=== PATIENT | female | born 1930 | race African-American/Black ===

== ENCOUNTER 2016-06-09 10:51 | Inpatient (IN) | payer MEDICARE, OTHER ==
[2016-06-09] MEDS ORDERED: IPRATROPIUM/ALBUTEROL 0.5-2.5 MG/3 ML AMPUL NEB ONE ×2 (11:36→13:24)
--- NOTE | 2016-06-09 11:36 | ER Document Report ---
ED Respiratory Problem - General Chief Complaint: Shortness Of Breath Stated Complaint: DIFFICULTY BREATHING Notes: The patient is an 86-year-old female, past medical history chronic anemia, COPD (on 2.5-3L O2), breast cancer, presents from the oncology clinic after her oxygen was in the 70s while ambulating using her usual 3 L nasal cannula.. She was being discharged after an iron infusion when she felt increasing shortness of breath. When EMS arrived, she was placed on her oxygen and her saturation increased to 100%. She is not feeling short of breath anymore when she is at rest. She denies rhinorrhea, chest pain, fevers, leg swelling, nausea, vomiting , back pain, rash or abdominal pain. TRAVEL OUTSIDE OF THE [place] IN LAST 30 DAYS: No - Related Data Allergies/Adverse Reactions: Penicillins Allergy (Verified 06/09/16 11:17) SWELLING, ITCHING Sulfa (Sulfonamide Antibiotics) Allergy (Verified 06/09/16 11:17) SWELLING, ITCHING, RASH Tetanus Vaccines and Toxoid [Tetanus] Allergy (Verified 06/09/16 11:17) SWELLING AT SITE Past Medical History - General Information source: Patient - Social History Smoking Status: Former Smoker Chew tobacco use (# tins/day): No Frequency of alcohol use: None Drug Abuse: None Family History: Reviewed & Not Pertinent Patient has suicidal ideation: No Patient has homicidal ideation: No - Past Medical History Cardiac Medical History: Reports: Hx Hypertension Denies: Hx Coronary Artery Disease, Hx Heart Attack Pulmonary Medical History: Reports: Hx Bronchitis, Hx COPD, Hx Pneumonia Denies: Hx Asthma Neurological Medical History: Denies: Hx Cerebrovascular Accident, Hx Seizures Renal/ Medical History: Denies: Hx Peritoneal Dialysis GI Medical History: Denies: Hx Hepatitis, Hx Hiatal Hernia, Hx Ulcer Musculoskeltal Medical History: Reports Hx Arthritis - OSTEOARTHRITIS, OSTEOPOROSIS Infectious Medical History: Denies: Hx Hepatitis Past Surgical History: Reports: Hx Mastectomy - LUMPECTOMY AVOID LEFT ARM. Denies: Hx Open Heart Surgery, Hx Pacemaker - Immunizations Hx Diphtheria, Pertussis, Tetanus Vaccination: No - ALLERGIC TO TETANUS VACCINE Hx Pneumococcal Vaccination: 12/26/14 Review of Systems - Review of Systems Notes: REVIEW OF SYSTEMS: CONSTITUTIONAL: -fevers, -chills EENT: -eye pain, -difficulty swallowing, -nasal congestion CARDIOVASCULAR:-chest pain, -syncope. RESPIRATORY: -cough, +SOB GASTROINTESTINAL: -abdominal pain, - nausea, -vomiting, -diarrhea GENITOURINARY: -dysuria, -hematuria MUSCULOSKELETAL: -back pain, -neck pain SKIN: -rash or skin lesions. HEMATOLOGIC: -easy bruising or bleeding. LYMPHATIC: -swollen, enlarged glands. NEUROLOGICAL: -altered mental status or loss of consciousness, -headache, - neurologic symptoms PSYCHIATRIC: -anxiety, -depression. ALL OTHER SYSTEMS REVIEWED AND NEGATIVE. Physical Exam - Vital signs Vitals: Temp Pulse Resp BP Pulse Ox 98.2 F 79 13 140/59 H 100 06/09/16 11:05 06/09/16 11:05 06/09/16 11:05 06/09/16 11:05 06/09/16 11:05 - Notes Notes: PHYSICAL EXAMINATION: GENERAL: Well-appearing, well-nourished and in no acute distress. HEAD: Atraumatic, normocephalic. EYES: Pupils equal round and reactive to light, extraocular movements intact, sclera anicteric, conjunctiva are normal. ENT: nares patent, oropharynx clear without exudates. Moist mucous membranes. NECK: Normal range of motion, supple without lymphadenopathy LUNGS: Breath sounds clear to auscultation bilaterally and equal. No wheezes rales or rhonchi. HEART: Regular rate and rhythm without murmurs ABDOMEN: Soft, nontender, normoactive bowel sounds. No guarding, no rebound. No masses appreciated. EXTREMITIES: Normal range of motion, no pitting or edema. No cyanosis. NEUROLOGICAL: Cranial nerves grossly intact. Normal speech, normal gait. Normal sensory, motor, and reflex exams. PSYCH: Normal mood, normal affect. SKIN: Warm, Dry, normal turgor, no rashes or lesions noted. Course - Re-evaluation Re-evalutation: 06/09/16 12:39 Once patient is placed on her home oxygen, she does not feel short of breath and her oxygenation is 95% while at rest. When she is ambulating with her home oxygen, she drops down to 70% and has increasing shortness of breath. Labs are unremarkable and chest x-ray does not show any infiltrate. EKG and troponin does not show any evidence of ACS. Considered PE , but unlikely at this time because patient is asymptomatic when she is at rest. Patient requires admission for further evaluation and treatment of this hypoxia while ambulating. Her primary care physician is Dr. Montoya. 06/09/16 13:[address] Montoya and he will be down to see and admit patient. - Vital Signs Vital signs: Temp Pulse Resp BP Pulse Ox 98.2 F 79 18 138/69 H 100 06/09/16 11:05 06/09/16 11:05 06/09/16 14:01 06/09/16 14:01 06/09/16 14:01 - Laboratory Result Diagrams: 06/09/16 11:45 06/09/16 11:45 Laboratory results interpreted by me: 06/09/16 06/09/16 11:45 11:45 RBC 3.65 L Hgb 8.9 L Hct 27.6 L MCV 76 L MCH 24.3 L RDW 17.9 H Lymphocytes % 12.8 L Carbon Dioxide 31 H - Diagnostic Test Radiology reviewed: Image reviewed, Reports reviewed Radiology results interpreted by me: CXR: NAD - EKG Interpretation by Me EKG shows normal: Sinus rhythm, [place], Intervals, QRS Complexes, ST-T Waves Rate: Normal Discharge - Discharge Clinical Impression: Hypoxia Dyspnea Qualifiers: Dyspnea type: dyspnea on exertion Qualified Code(s): R06.09 - Other forms of dyspnea Condition: Stable Disposition: ADMITTED INPATIENT Admitting Provider: Lindsay Unit Admitted: Telemetry
[2016-06-09 12:11] LABS: ABSOLUTE LYMPHOCYTES (AUTO) 0.6 10^3/uL (0.5-4.7); ABSOLUTE MONOCYTES (AUTO) 0.5 10^3/uL (0.1-1.4); ABSOLUTE NEUT (AUTO) 3.6 10^3/uL (1.7-8.2); BASOPHILS % (AUTO) 0.8 % (0-2); HEMATOCRIT 27.6 % (36.0-47.0); HEMOGLOBIN 8.9 g/dL (12.0-15.5); HGB HCT DIFFERENCE -0.9; LYMPHOCYTES % (AUTO) 12.8 % (13-45); MEAN CORPUSCULAR HEMOGLOBIN 24.3 pg (27.0-33.4); MEAN CORPUSCULAR HGB CONC 32.1 g/dL (32.0-36.0); MEAN CORPUSCULAR VOLUME 76 fl (80-97); MONOCYTES % (AUTO) 10.3 % (3-13); RED BLOOD COUNT 3.65 10^6/uL (3.72-5.28); RED CELL DISTRIBUTION WIDTH 17.9 % (11.5-14.0); SEGMENTED NEUTROPHILS % (AUTO) 76.1 % (42-78); WHITE BLOOD COUNT 4.7 10^3/uL (4.0-10.5)
[2016-06-09 12:23] LABS: ALANINE AMINOTRANSFERASE 25 U/L (9-52); ALBUMIN 4.3 g/dL (3.5-5.0); ALKALINE PHOSPHATASE 66 U/L (38-126); ANION GAP 6 (5-19); ASPARTATE AMINO TRANSFERASE 20 U/L (14-36); BILIRUBIN,TOTAL 0.7 mg/dL (0.2-1.3); BLOOD UREA NITROGEN 14 mg/dL (7-20); CALCIUM 9.7 mg/dL (8.4-10.2); CARBON DIOXIDE 31 mmol/L (22-30); CHLORIDE 103 mmol/L (98-107); CREATINE KINASE 67 U/L (30-135); CREATININE RESULT 0.54 mg/dL (0.52-1.25); GLUCOSE 101 mg/dL (75-110); LIPASE 24.5 U/L (23-300); POTASSIUM 3.9 mmol/L (3.6-5.0); SODIUM 140.3 mmol/L (137-145); TOTAL PROTEIN 7.1 g/dL (6.3-8.2)
[2016-06-09 12:36] LABS: TROPONIN I < 0.012 ng/mL
[2016-06-09] MEDS ORDERED: METHYLPREDNISOLONE INJ 125 MG/2 ML SDV IV ONE (13:31)
--- NOTE | 2016-06-09 18:44 | PDOC H&P ---
History of Present Illness Admission Date/PCP: 06/09/16 13:53 KEITH LIATADAMARISLow Patient complains of: Shortness of breath with hypoxemia History of Present Illness: ZANA ARREDONDO is a 86 year old female brought by medic personnel ed the ED from [facility] following development of worsening shortness of breath with persistent hypoxemia. Patient do have history of end stage COPD on supplemental oxygen and lung cancer. There is history of anemia with need for iron infusion and upon administration of iron infusion today patient developed increase shortness of breath necessitating transfer to ED for further evaluation and management. Despite 3 rounds of bronchodilator administration she continue to experience significant wheezing and hypoxemia with reported oxgen saturation in the 70's percent with ambulation while on her usual 3L/min supplemental oxygen. She demonstrated improvement with increase in supplemental oxygen. She denied any chest pain, fever or chills. She denied any associated dizziness, vertigo, nausea, vomiting, abdominal pain, or leg swelling. Past Medical History Cardiac Medical History: Reports: Hypertension Denies: Coronary Artery Disease, Myocardial Infarction Pulmonary Medical History: Reports: Bronchitis, Chronic Obstructive Pulmonary Disease (COPD), Pneumonia Denies: Asthma Neurological Medical History: Denies: Seizures GI Medical History: Denies: Hepatitis, Hiatal Hernia Musculoskeltal Medical History: Reports: Arthritis - OSTEOARTHRITIS, OSTEOPOROSIS Hematology: Reports: Anemia - hx of Denies: Sickle Cell Disease Past Surgical History Past Surgical History: Reports: Mastectomy - LUMPECTOMY AVOID LEFT ARM Denies: Amputation, Pacemaker Social History Smoking Status: Former Smoker Family History Family History: Reviewed & Not Pertinent Parental Family History Reviewed: Yes Children Family History Reviewed: Yes Sibling(s) Family History Reviewed.: Yes Medication/Allergy Home Medications: Alendronate Sodium [Fosamax 70 mg Tablet] 70 mg PO HODGSON 06/09/16 Alprazolam [Xanax 0.25 mg Tablet] 0.25 mg PO Q12HP PRN 06/09/16 Aspirin [Aspirin EC] 81 mg PO DAILY 06/09/16 Calcium Carbonate [Calcium] 500 mg PO Q12 06/09/16 Cyclosporine [Restasis Droperette] 1 drop OP Q12 06/09/16 Diltiazem HCl [Dilt-Xr] 240 mg PO DAILY 06/09/16 Epoetin Alexander [Procrit] 40,000 unit IJ ASDIR PRN 06/09/16 Ergocalciferol (Vitamin D2) [Vitamin D2] 50,000 unit PO Q30D 06/09/16 Fluticasone/Salmeterol [Advair 500-50 Diskus 28 Dose] 1 puff IH Q12 06/09/16 Ipratropium/Albuterol Sulfate [Combivent Respimat 4 gm Mdi] 1 puff IH Q6 Melatonin/Pyridoxine HCl (B6) [Melatonin 5 mg Tablet] 1 tab PO QHS 06/09/16 Mometasone Furoate [Nasonex] 2 sprays NASL DAILY 06/09/16 Montelukast Sodium [Singulair 10 mg Tablet] 10 mg PO DAILY 06/09/16 Multivit-Min/FA/Lycopen/Lutein [Adults 50+ Multivitamin Tablet] 1 tab PO DAILY 06/09/16 Tiotropium Climax [Spiriva Handihaler 18 mcg/dose (30 Dose)] 1 cap IH DAILY Allergies/Adverse Reactions: Penicillins Allergy (Verified 06/09/16 11:17) SWELLING, ITCHING Sulfa (Sulfonamide Antibiotics) Allergy (Verified 06/09/16 11:17) SWELLING, ITCHING, RASH Tetanus Vaccines and Toxoid [Tetanus] Allergy (Verified 06/09/16 11:17) SWELLING AT SITE Review of Systems Constitutional: ABSENT: chills, fever(s), headache(s), weight gain, weight loss Eyes: ABSENT: visual disturbances Ears: ABSENT: hearing changes Nose, Mouth, and Throat: ABSENT: as per HPI, headache(s), mouth pain, sore throat, vertigo, other Cardiovascular: PRESENT: dyspnea on exertion. ABSENT: as per HPI, chest pain, edema, orthropnea, palpitations, other Respiratory: PRESENT: dyspnea. ABSENT: as per HPI, cough, hemoptysis, sputum, other Gastrointestinal: ABSENT: abdominal pain, constipation, diarrhea, hematemesis, hematochezia, nausea, vomiting Genitourinary: ABSENT: dysuria, hematuria Musculoskeletal: PRESENT: deformity - related to joint involvement with arthritis Integumentary: ABSENT: rash, wounds Neurological: ABSENT: abnormal gait, abnormal speech, confusion, dizziness, focal weakness, syncope Psychiatric: ABSENT: anxiety, depression, homidical ideation, suicidal ideation Endocrine: ABSENT: cold intolerance, heat intolerance, menstrual abnormalities, polydipsia, polyuria Hematologic/Lymphatic: ABSENT: easy bleeding, easy bruising, lymphadenopathy Physical Exam Vital Signs: Temp Pulse Resp BP Pulse Ox 98.2 F 79 16 130/55 H 93 06/09/16 11:05 06/09/16 11:05 06/09/16 18:01 06/09/16 18:01 06/09/16 18:01 Intake & Output 06/08/16 06/09/16 06/10/16 06:59 06:59 06:59 Weight 48.988 kg General appearance: PRESENT: mild distress, thin Head exam: PRESENT: atraumatic, normocephalic Eye exam: PRESENT: conjunctiva pink, EOMI, PERRLA. ABSENT: scleral icterus Ear exam: PRESENT: normal external ear exam Mouth exam: PRESENT: moist, tongue midline Throat exam: ABSENT: post pharyngeal erythema, tonsillar erythema, tonsillar exudate, tonsillogmegaly, other Neck exam: PRESENT: full ROM. ABSENT: carotid bruit, JVD, lymphadenopathy, thyromegaly Respiratory exam: PRESENT: decreased breath sounds, prolonged expiratory phas, rhonchi, wheezes. ABSENT: accessory muscle use, chest wall tenderness, clear to auscultation emerita, crackles, rales, retraction, stridor, symmetrical, tachypnea, unlabored, other Cardiovascular exam: PRESENT: RRR. ABSENT: diastolic murmur, rubs, systolic murmur Vascular exam: PRESENT: normal capillary refill GI/Abdominal exam: PRESENT: normal bowel sounds, soft. ABSENT: distended, guarding, mass, organolmegaly, rebound, tenderness Rectal exam: PRESENT: deferred Extremities exam: PRESENT: full ROM Musculoskeletal exam: PRESENT: ambulatory, deformity - due to joint involvement with arthritis Neurological exam: PRESENT: alert, awake, oriented to person, oriented to place , oriented to time, oriented to situation, CN II-XII grossly intact. ABSENT: motor sensory deficit Psychiatric exam: PRESENT: appropriate affect, normal mood. ABSENT: homicidal ideation, suicidal ideation Skin exam: PRESENT: dry, warm Results Laboratory Results: See [employer] for details. These lab results form part f my decision making efforts. Impressions: Chest X-Ray 06/09/16 10:59 IMPRESSION: Obstructive lung disease. No acute findings Assessment & Plan - Diagnosis (1) Chronic obstructive pulmonary disease with acute exacerbation Is this a current diagnosis for this admission?: YesPlan: See admitting physician orders. (2) Hypoxemia requiring supplemental oxygen Is this a current diagnosis for this admission?: YesPlan: See admitting physician orders. (3) Chronic disease anemia Is this a current diagnosis for this admission?: YesPlan: See admitting physician orders. (4) HTN (hypertension) Qualifiers: Hypertension type: essential hypertension Qualified Code(s): I10 - Essential (primary) hypertension Is this a current diagnosis for this admission?: YesPlan: See admitting physician orders. (5) Anxiety, generalized Is this a current diagnosis for this admission?: YesPlan: See admitting physician orders. (6) History of malignant neoplasm of left breast Is this a current diagnosis for this admission?: YesPlan: See admitting physician orders. - Time Time Spent: 50 to 70 Minutes Medications reviewed and adjusted accordingly: Yes Anticipated discharge: Home with Homehealth Within: Other - Inpatient Certification Based on my medical assessment, after consideration of the patient's comorbidities, presenting symptoms, or acuity I expect that the services needed warrant INPATIENT care.: Yes I certify that my determination is in accordance with my understanding of Medicare's requirements for reasonable and necessary INPATIENT services [42 CFR 412.3e].: Yes Medical Necessity: Need Close Monitoring Due to Risk of Patient Decompensation, Need For Continuous Telemetry Monitoring, Need for Nebulizer Therapy and Monitoring of Response, Risk of Complication if Not Cared For in Hospital Post Hospital Care: D/C Getterer Documentation - Plan Summary Plan Summary: See admitting physician orders.
[2016-06-09] MEDS ORDERED: GUAIFENESIN SYRP 200 MG/10 ML UDC PO PRN (18:56)
[2016-06-09 19:58] LABS: PROTHROMBIN TIME 13.3 SEC (11.4-15.4)
[2016-06-09 19:59] LABS: PARTIAL THROMBOPLASTIN TIME 36.7 SEC (23.5-35.8)
[2016-06-09] MEDS ORDERED: ENOXAPARIN SODIUM INJ 30 MG/0.3 ML DISP.SYRIN SUBCUT ONE ×2 (20:00)
[2016-06-09] MEDS: NORMAL SALINE 1000 ML 1,000 ML IV PRN ×2 (20:17→23:08)
[2016-06-09] MEDS ORDERED: PYRIDOXINE HCL PO SCH (22:00)
[2016-06-09] MEDS ORDERED: MELATONIN PO SCH (22:00)
[2016-06-09] MEDS: CALCIUM CARBONATE 500 MG TABLET PO SCH (23:08)
[2016-06-09] MEDS: METHYLPREDNISOLONE INJ 125 MG/2 ML SDV IV SCH (23:09)
[2016-06-09] MEDS: CYCLOSPORINE 0.05% OPH EMULSIO 0.4 ML DROPERETTE OU SCH (23:09)
[2016-06-09] MEDS: ALPRAZOLAM 0.25 MG TABLET PO PRN (23:09)
[2016-06-10] MEDS: ACETAMINOPHEN 325 MG TABLET PO PRN ×3 (03:45→21:11)
[2016-06-10] MEDS: METHYLPREDNISOLONE INJ 125 MG/2 ML SDV IV SCH ×3 (05:34→21:13)
[2016-06-10] MEDS: LANSOPRAZOLE 30 MG TAB.RAP.DR PO SCH (05:34)
[2016-06-10 06:07] LABS: ABSOLUTE LYMPHOCYTES (AUTO) 0.3 10^3/uL (0.5-4.7); ABSOLUTE MONOCYTES (AUTO) 0.1 10^3/uL (0.1-1.4); ABSOLUTE NEUT (AUTO) 3.1 10^3/uL (1.7-8.2); BASOPHILS % (AUTO) 0.2 % (0-2); EOSINOPHILS % (AUTO) 0.1 % (0-6); HEMATOCRIT 25.7 % (36.0-47.0); HEMOGLOBIN 8.4 g/dL (12.0-15.5); HGB HCT DIFFERENCE -0.5; LYMPHOCYTES % (AUTO) 8.1 % (13-45); MEAN CORPUSCULAR HEMOGLOBIN 24.4 pg (27.0-33.4); MEAN CORPUSCULAR HGB CONC 32.7 g/dL (32.0-36.0); MEAN CORPUSCULAR VOLUME 75 fl (80-97); MONOCYTES % (AUTO) 1.7 % (3-13); RED BLOOD COUNT 3.44 10^6/uL (3.72-5.28); RED CELL DISTRIBUTION WIDTH 18.5 % (11.5-14.0); SEGMENTED NEUTROPHILS % (AUTO) 89.9 % (42-78); WHITE BLOOD COUNT 3.4 10^3/uL (4.0-10.5)
[2016-06-10 06:10] LABS: ALANINE AMINOTRANSFERASE 27 U/L (9-52); ALKALINE PHOSPHATASE 57 U/L (38-126); ANION GAP 7 (5-19); ASPARTATE AMINO TRANSFERASE 20 U/L (14-36); BILIRUBIN,TOTAL 0.4 mg/dL (0.2-1.3); BLOOD UREA NITROGEN 8 mg/dL (7-20); CARBON DIOXIDE 29 mmol/L (22-30); CHLORIDE 105 mmol/L (98-107); GLUCOSE 133 mg/dL (75-110); MAGNESIUM 1.9 mg/dL (1.6-2.3); PHOSPHORUS 3.5 mg/dL (2.5-4.5); POTASSIUM 3.8 mmol/L (3.6-5.0); SODIUM 141.1 mmol/L (137-145); TOTAL PROTEIN 6.6 g/dL (6.3-8.2)
--- NOTE | 2016-06-10 08:09 | PDOC PROGRESS REPORT ---
Subjective Progress Note for:: 06/10/16 Subjective:: Patient reported some improvement in her breathing with need for decrease supplemental oxygen due to associated headache with rate at 4L/min. No chest pain. There is still exertional oxygen desaturation. Patient reported frequent urination with feeling of incomplete bladder emptying. No chest pain. No fever or chills. No nausea or vomiting. No abdominal pain. Physical Exam Vital Signs: Temp Pulse Resp BP Pulse Ox 98.0 F 103 H 19 124/62 98 06/10/16 04:00 06/10/16 07:00 06/10/16 04:00 06/10/16 04:00 06/10/16 04:00 Intake & Output 06/09/16 06/10/16 06/11/16 06:59 06:59 06:59 Intake Total 1197 Balance 1197 Weight 45.7 kg General appearance: PRESENT: cooperative, mild distress - with supplemental oxygen at 3L/min Head exam: PRESENT: atraumatic, normocephalic Eye exam: PRESENT: conjunctiva pink, EOMI, PERRLA. ABSENT: scleral icterus Mouth exam: PRESENT: moist Respiratory exam: PRESENT: clear to auscultation emerita, decreased breath sounds Cardiovascular exam: PRESENT: RRR. ABSENT: diastolic murmur, rubs, systolic murmur GI/Abdominal exam: PRESENT: normal bowel sounds, soft. ABSENT: distended, guarding, mass, organolmegaly, rebound, tenderness Extremities exam: PRESENT: full ROM Musculoskeletal exam: PRESENT: deformity - related to joint involvement with arthritis Neurological exam: PRESENT: alert, awake, oriented to person, oriented to place , oriented to time, oriented to situation, CN II-XII grossly intact. ABSENT: motor sensory deficit Psychiatric exam: PRESENT: anxious - about sale of her home and furniture content Skin exam: PRESENT: dry, warm Results Laboratory Results: 06/10/16 05:30 06/10/16 05:30 06/10/16 06/10/16 05:30 05:30 WBC 3.4 L RBC 3.44 L Hgb 8.4 L Hct 25.7 L MCV 75 L MCH 24.4 L MCHC 32.7 RDW 18.5 H Plt Count 388 Seg Neutrophils % 89.9 H Lymphocytes % 8.1 L Monocytes % 1.7 L Eosinophils % 0.1 Basophils % 0.2 Absolute Neutrophils 3.1 Absolute Lymphocytes 0.3 L Absolute Monocytes 0.1 Absolute Eosinophils 0.0 Absolute Basophils 0.0 Sodium 141.1 Potassium 3.8 Chloride 105 Carbon Dioxide 29 Anion Gap 7 BUN 8 Creatinine 0.50 L Est GFR ( Amer) > 60 Est GFR (Non-Af Amer) > 60 Glucose 133 H Calcium 10.0 Phosphorus 3.5 Magnesium 1.9 Total Bilirubin 0.4 AST 20 ALT 27 Alkaline Phosphatase 57 Total Protein 6.6 Albumin 4.0 Impressions: Chest X-Ray 06/09/16 10:59 IMPRESSION: Obstructive lung disease. No acute findings Assessment & Plan - Diagnosis (1) Chronic obstructive pulmonary disease with acute exacerbation Is this a current diagnosis for this admission?: YesPlan: See attending physician orders. (2) Hypoxemia requiring supplemental oxygen Is this a current diagnosis for this admission?: YesPlan: See attending physician orders. (3) Chronic disease anemia Is this a current diagnosis for this admission?: YesPlan: See attending physician orders. (4) HTN (hypertension) Qualifiers: Hypertension type: essential hypertension Qualified Code(s): I10 - Essential (primary) hypertension Is this a current diagnosis for this admission?: YesPlan: See attending physician orders. (5) Anxiety, generalized Is this a current diagnosis for this admission?: YesPlan: See attending physician orders. (6) History of malignant neoplasm of left breast Is this a current diagnosis for this admission?: YesPlan: See attending physician orders. (7) Feeling of incomplete bladder emptying Is this a current diagnosis for this admission?: YesPlan: Obtain u/a and bladder scan for further evaluation. 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
[2016-06-10] MEDS ORDERED: [UNRECOGNIZED DRUG - OTHER] PO SCH (10:00)
[2016-06-10] MEDS ORDERED: (PENDING PHARMACY ID) (Mometasone Furoate [Nasonex] 2 SPRAYS) NASL SCH (10:00)
[2016-06-10] MEDS: MULTIVITAMIN TABLET PO SCH (10:09)
[2016-06-10] MEDS: DILTIAZEM HCL 240 MG CAPSULE.CR PO SCH (10:09)
[2016-06-10] MEDS: CALCIUM CARBONATE 500 MG TABLET PO SCH ×2 (10:10→21:11)
[2016-06-10] MEDS: ASPIRIN 81 MG TABLET, ENT COATED PO SCH (10:10)
[2016-06-10] MEDS: MONTELUKAST SODIUM 10 MG TABLET PO SCH (10:10)
[2016-06-10] MEDS: ENOXAPARIN SODIUM INJ 30 MG/0.3 ML DISP.SYRIN SUBCUT SCH (10:11)
[2016-06-10] MEDS: FLUTICASONE NASAL SPRAY 50 MCG/SPRY 120 SPRAY/16 GM NASL SCH (10:17)
[2016-06-10] MEDS: CYCLOSPORINE 0.05% OPH EMULSIO 0.4 ML DROPERETTE OU SCH ×2 (10:17→21:12)
[2016-06-10] MEDS: TIOTROPIUM BROMIDE DPI 5 CAP/KIT (18 MCG/CAP) IH SCH (10:40)
--- NOTE | 2016-06-10 11:15 | EKG REPORT ---
SEVERITY:- NORMAL ECG - SINUS RHYTHM : Confirmed by: Heidi Mir 10-Jun-2016 11:14:20
[2016-06-10 13:53] LABS: APPEARANCE,URINE CLEAR; BILIRUBIN,URINE NEGATIVE (NEGATIVE); GLUCOSE, URINE NEGATIVE (NEGATIVE); KETONES,URINE NEGATIVE (NEGATIVE); LEUKOCYTE ESTERASE,URINE NEGATIVE (NEGATIVE); NITRITE,URINE NEGATIVE (NEGATIVE); PROTEIN,URINE NEGATIVE (NEGATIVE); URINE SPECIFIC GRAVITY 1.004; UROBILINOGEN,URINE NEGATIVE mg/dL (<2.0)
[2016-06-10] MEDS: ALPRAZOLAM 0.25 MG TABLET PO PRN (21:12)
[2016-06-10] MEDS: NORMAL SALINE 1000 ML 1,000 ML IV PRN (21:13)
[2016-06-11] MEDS: ACETAMINOPHEN 325 MG TABLET PO PRN ×3 (04:14→21:01)
[2016-06-11] MEDS: METHYLPREDNISOLONE INJ 125 MG/2 ML SDV IV SCH ×3 (06:00→21:01)
[2016-06-11] MEDS: LANSOPRAZOLE 30 MG TAB.RAP.DR PO SCH (06:00)
[2016-06-11] MEDS: DILTIAZEM HCL 240 MG CAPSULE.CR PO SCH (10:56)
[2016-06-11] MEDS: MULTIVITAMIN TABLET PO SCH (10:57)
[2016-06-11] MEDS: CYCLOSPORINE 0.05% OPH EMULSIO 0.4 ML DROPERETTE OU SCH ×2 (10:57→21:01)
[2016-06-11] MEDS: ASPIRIN 81 MG TABLET, ENT COATED PO SCH (10:57)
[2016-06-11] MEDS: MONTELUKAST SODIUM 10 MG TABLET PO SCH (10:57)
[2016-06-11] MEDS: FLUTICASONE NASAL SPRAY 50 MCG/SPRY 120 SPRAY/16 GM NASL SCH (10:57)
[2016-06-11] MEDS: CALCIUM CARBONATE 500 MG TABLET PO SCH ×2 (10:57→21:01)
[2016-06-11] MEDS: ENOXAPARIN SODIUM INJ 30 MG/0.3 ML DISP.SYRIN SUBCUT SCH (10:58)
[2016-06-11] MEDS: TIOTROPIUM BROMIDE DPI 5 CAP/KIT (18 MCG/CAP) IH SCH (11:10)
[2016-06-11] MEDS: IPRATROPIUM/ALBUTEROL 0.5-2.5 MG/3 ML AMPUL NEB PRN ×2 (11:53→15:53)
[2016-06-11] MEDS ORDERED: POLYETHYLENE GLYCOL 3350 POWDER 17 GM/1 PACKET PO PRN (14:55)
--- NOTE | 2016-06-11 15:17 | PDOC PROGRESS REPORT ---
Subjective Progress Note for:: 06/11/16 Subjective:: Patient continue to complain about headache and no relief with Tylenol usage. She denied any associated nausea or vomiting. No chest pain. She remain on supplemental oxygen. She continue to experience oxygen desaturation with efforts. No chest pain. No fever or chills. No nausea or vomiting. No abdominal pain. She reported constipation and claimed usage of Miralax in the past with good result. Physical Exam Vital Signs: Temp Pulse Resp BP Pulse Ox 97.9 F 99 16 137/50 H 97 06/11/16 12:30 06/11/16 12:30 06/11/16 12:30 06/11/16 12:30 06/11/16 12:30 Intake & Output 06/10/16 06/11/16 06/12/16 06:59 06:59 06:59 Intake Total 1197 1490 320 Output Total 2700 400 Balance 1197 -1210 -80 Weight 45.7 kg 48.6 kg Physical Exam: General appearance: PRESENT: cooperative, mild distress - with supplemental oxygen at 3L/min Head exam: PRESENT: atraumatic, normocephalic Eye exam: PRESENT: conjunctiva pink, EOMI, PERRLA. ABSENT: scleral icterus Mouth exam: PRESENT: moist Respiratory exam: PRESENT: clear to auscultation emerita, decreased breath sounds Cardiovascular exam: PRESENT: RRR. ABSENT: diastolic murmur, rubs, systolic murmur GI/Abdominal exam: PRESENT: normal bowel sounds, soft. ABSENT: distended, guarding, mass, organomegaly, rebound, tenderness Extremities exam: PRESENT: full ROM Musculoskeletal exam: PRESENT: deformity - related to joint involvement with arthritis Neurological exam: PRESENT: alert, awake, oriented to person, oriented to place , oriented to time, oriented to situation, CN II-XII grossly intact. ABSENT: motor sensory deficit Psychiatric exam: PRESENT: anxious - about sale of her home and furniture content Skin exam: PRESENT: dry, warm Results Laboratory Results: 06/10/16 05:30 06/10/16 05:30 Impressions: Chest X-Ray 06/09/16 10:59 IMPRESSION: Obstructive lung disease. No acute findings Assessment & Plan - Diagnosis (1) Chronic obstructive pulmonary disease with acute exacerbation Is this a current diagnosis for this admission?: YesPlan: See attending physician orders. Decrease IV Solu-Medrol to 40 mg O3diblk. Start on Advair 500/50 mcg 1 puff po bid with intent to discontinue IV Solu-Medrol usage over next 72 hours. (2) Hypoxemia requiring supplemental oxygen Is this a current diagnosis for this admission?: YesPlan: See attending physician orders. (3) Chronic disease anemia Is this a current diagnosis for this admission?: YesPlan: See attending physician orders. (4) HTN (hypertension) Qualifiers: Hypertension type: essential hypertension Qualified Code(s): I10 - Essential (primary) hypertension Is this a current diagnosis for this admission?: YesPlan: See attending physician orders. (5) Anxiety, generalized Is this a current diagnosis for this admission?: YesPlan: See attending physician orders. (6) History of malignant neoplasm of left breast Is this a current diagnosis for this admission?: YesPlan: See attending physician orders. (7) Feeling of incomplete bladder emptying Is this a current diagnosis for this admission?: YesPlan: Follow up on urine culture findings. (8) Constipation Qualifiers: Constipation type: unspecified constipation type Qualified Code(s): K59.00 - Constipation, unspecified Is this a current diagnosis for this admission?: YesPlan: Start on Miralax 17 gm p.o daily on prn basis for constipation. - Time Time Spent with patient: 25-34 minutes Medications reviewed and adjusted accordingly: Yes Anticipated discharge: Home with Homehealth Within: within 72 hours - Inpatient Certification Medical Necessity: Need Close Monitoring Due to Risk of Patient Decompensation, Need For IV Fluids, Need For Continuous Telemetry Monitoring, Need for IV Antibiotics, Risk of Complication if Not Cared For in Hospital Post Hospital Care: D/C An Employee Sponsor Or Advocate And Documentation - Plan Summary Plan Summary: See attending physician orders.
[2016-06-11] MEDS ORDERED: METHYLPREDNISOLONE INJ 125 MG/2 ML SDV IV ONE (15:30)
[2016-06-11] MEDS: BUTALB/ACETAMINOPHEN/CAFFEINE 1 TAB EACH PO PRN (17:34)
[2016-06-11] MEDS: FLUTICASONE/SALMETEROL DISKUS 500-50 MCG/DOSE IH SCH (21:01)
[2016-06-11] MEDS: ALPRAZOLAM 0.25 MG TABLET PO PRN (21:01)
[2016-06-12] MEDS: LANSOPRAZOLE 30 MG TAB.RAP.DR PO SCH (05:16)
[2016-06-12] MEDS: METHYLPREDNISOLONE INJ 125 MG/2 ML SDV IV SCH ×2 (05:16→13:41)
[2016-06-12] MEDS: BUTALB/ACETAMINOPHEN/CAFFEINE 1 TAB EACH PO PRN (05:18)
[2016-06-12] MEDS: ENOXAPARIN SODIUM INJ 30 MG/0.3 ML DISP.SYRIN SUBCUT SCH (08:57)
[2016-06-12] MEDS: IPRATROPIUM/ALBUTEROL 0.5-2.5 MG/3 ML AMPUL NEB PRN (10:29)
[2016-06-12] MEDS: FLUTICASONE NASAL SPRAY 50 MCG/SPRY 120 SPRAY/16 GM NASL SCH (11:05)
[2016-06-12] MEDS: FLUTICASONE/SALMETEROL DISKUS 500-50 MCG/DOSE IH SCH ×2 (11:05→21:21)
[2016-06-12] MEDS: TIOTROPIUM BROMIDE DPI 5 CAP/KIT (18 MCG/CAP) IH SCH (11:05)
[2016-06-12] MEDS: CYCLOSPORINE 0.05% OPH EMULSIO 0.4 ML DROPERETTE OU SCH ×2 (11:06→21:21)
[2016-06-12] MEDS: MULTIVITAMIN TABLET PO SCH (11:07)
[2016-06-12] MEDS: CALCIUM CARBONATE 500 MG TABLET PO SCH ×2 (11:07→21:21)
[2016-06-12] MEDS: MONTELUKAST SODIUM 10 MG TABLET PO SCH (11:07)
[2016-06-12] MEDS: ASPIRIN 81 MG TABLET, ENT COATED PO SCH (11:07)
[2016-06-12] MEDS: DILTIAZEM HCL 240 MG CAPSULE.CR PO SCH (11:07)
[2016-06-12] MEDS: ACETAMINOPHEN 325 MG TABLET PO PRN ×2 (11:09→21:23)
[2016-06-12] MEDS: NORMAL SALINE 1000 ML 1,000 ML IV PRN (13:41)
[2016-06-12] MEDS ORDERED: PREDNISONE 20 MG TABLET PO ONE (17:00)
--- NOTE | 2016-06-12 17:58 | PDOC PROGRESS REPORT ---
Subjective Progress Note for:: 06/12/16 Subjective:: Patient was seen by the bedside, she was admitted because of acute COPD exacerbation and she is presently on intravenous Solu-Medrol, Physical Exam Vital Signs: Temp Pulse Resp BP Pulse Ox 97.9 F 89 18 135/42 H 99 06/12/16 15:44 06/12/16 15:50 06/12/16 15:50 06/12/16 15:44 06/12/16 15:44 Intake & Output 06/11/16 06/12/16 06/13/16 06:59 06:59 06:59 Intake Total 1490 2000 850 Output Total 2700 400 Balance -1210 1600 850 Weight 48.6 kg 47.7 kg General appearance: PRESENT: no acute distress Eye exam: PRESENT: PERRLA Mouth exam: PRESENT: moist Respiratory exam: PRESENT: decreased breath sounds Cardiovascular exam: PRESENT: +S1, +S2 GI/Abdominal exam: PRESENT: soft Neurological exam: PRESENT: alert, CN II-XII grossly intact Results Laboratory Results: 06/10/16 05:30 06/10/16 05:30 Impressions: Chest X-Ray 06/09/16 10:59 IMPRESSION: Obstructive lung disease. No acute findings Assessment & Plan - Diagnosis (1) Chronic obstructive pulmonary disease with (acute) exacerbation Is this a current diagnosis for this admission?: YesPlan: Patient seemed to be stable, we will discontinue IV Solu-Medrol and transition to p.o. prednisone, continue other medications (2) History of malignant neoplasm of left breast Is this a current diagnosis for this admission?: Yes (3) Hypoxemia requiring supplemental oxygen Is this a current diagnosis for this admission?: Yes (4) Chronic disease anemia Is this a current diagnosis for this admission?: Yes
[2016-06-12] MEDS: ALPRAZOLAM 0.25 MG TABLET PO PRN (21:21)
[2016-06-13] MEDS: LANSOPRAZOLE 30 MG TAB.RAP.DR PO SCH (05:53)
[2016-06-13] MEDS: ACETAMINOPHEN 325 MG TABLET PO PRN (05:54)
[2016-06-13] MEDS: ENOXAPARIN SODIUM INJ 30 MG/0.3 ML DISP.SYRIN SUBCUT SCH (08:02)
[2016-06-13] MEDS: TIOTROPIUM BROMIDE DPI 5 CAP/KIT (18 MCG/CAP) IH SCH (10:22)
[2016-06-13] MEDS: FLUTICASONE NASAL SPRAY 50 MCG/SPRY 120 SPRAY/16 GM NASL SCH (10:22)
[2016-06-13] MEDS: FLUTICASONE/SALMETEROL DISKUS 500-50 MCG/DOSE IH SCH ×2 (10:23→22:27)
[2016-06-13] MEDS: ASPIRIN 81 MG TABLET, ENT COATED PO SCH (10:23)
[2016-06-13] MEDS: CYCLOSPORINE 0.05% OPH EMULSIO 0.4 ML DROPERETTE OU SCH ×2 (10:23→22:27)
[2016-06-13] MEDS: CALCIUM CARBONATE 500 MG TABLET PO SCH ×2 (10:24→22:27)
[2016-06-13] MEDS: PREDNISONE 20 MG TABLET PO SCH (10:24)
[2016-06-13] MEDS: MULTIVITAMIN TABLET PO SCH (10:24)
[2016-06-13] MEDS: DILTIAZEM HCL 240 MG CAPSULE.CR PO SCH (10:24)
[2016-06-13] MEDS: MONTELUKAST SODIUM 10 MG TABLET PO SCH (10:24)
[2016-06-13 15:16] LABS: HEMATOCRIT 25.1 % (36.0-47.0); HEMOGLOBIN 8.2 g/dL (12.0-15.5); HGB HCT DIFFERENCE -0.5; MEAN CORPUSCULAR HGB CONC 32.7 g/dL (32.0-36.0); MEAN CORPUSCULAR VOLUME 76 fl (80-97); RED BLOOD COUNT 3.29 10^6/uL (3.72-5.28); WHITE BLOOD COUNT 7.5 10^3/uL (4.0-10.5)
[2016-06-13 15:36] LABS: ALANINE AMINOTRANSFERASE 44 U/L (9-52); ALBUMIN 3.4 g/dL (3.5-5.0); ALKALINE PHOSPHATASE 46 U/L (38-126); ANION GAP 11 (5-19); ASPARTATE AMINO TRANSFERASE 37 U/L (14-36); BILIRUBIN,TOTAL 0.3 mg/dL (0.2-1.3); BLOOD UREA NITROGEN 20 mg/dL (7-20); CALCIUM 8.8 mg/dL (8.4-10.2); CARBON DIOXIDE 33 mmol/L (22-30); CHLORIDE 98 mmol/L (98-107); CREATININE RESULT 0.61 mg/dL (0.52-1.25); GLUCOSE 121 mg/dL (75-110); POTASSIUM 3.3 mmol/L (3.6-5.0); TOTAL PROTEIN 5.6 g/dL (6.3-8.2)
[2016-06-13 15:41] LABS: BASOPHILS % (MANUAL) 0 % (0-2); EOSINOPHILS % (MANUAL) 0 % (0-6); LYMPHOCYTES % (MANUAL) 4 % (13-45); TOTAL CELLS COUNTED 100
[2016-06-13 15:43] LABS: HYPOCHROMASIA 2+; MICROCYTOSIS 1+; OVALOCYTES SLIGHT; POIKILOCYTOSIS SLIGHT; POLYCHROMASIA SLIGHT; ROULEAUX SLIGHT; TARGET CELLS SLIGHT
[2016-06-13] MEDS ORDERED: POTASSI CL 20 MEQ/50 ML RIDER 50 ML IV ONE (17:00)
--- NOTE | 2016-06-13 18:03 | PDOC PROGRESS REPORT ---
Subjective Progress Note for:: 06/13/16 Subjective:: She was seen by the bedside,she has hypokalemia Physical Exam Vital Signs: Temp Pulse Resp BP Pulse Ox 98.1 F 87 18 136/55 H 94 06/13/16 15:32 06/13/16 17:30 06/13/16 17:30 06/13/16 15:32 06/13/16 15:32 Intake & Output 06/12/16 06/13/16 06/14/16 06:59 06:59 06:59 Intake Total 1999 1772 447 Output Total 400 200 Balance 1600 1772 247 Weight 47.7 kg General appearance: PRESENT: no acute distress Respiratory exam: PRESENT: decreased breath sounds Cardiovascular exam: PRESENT: +S1, +S2 GI/Abdominal exam: PRESENT: soft Neurological exam: PRESENT: alert, CN II-XII grossly intact Results Laboratory Results: 06/13/16 15:00 06/13/16 15:00 06/13/16 06/13/16 15:00 15:00 WBC 7.5 RBC 3.29 L Hgb 8.2 L Hct 25.1 L MCV 76 L MCH 25.0 L MCHC 32.7 RDW 19.0 H Plt Count 331 Seg Neutrophils % Not Reportable Lymphocytes % Not Reportable Monocytes % Not Reportable Eosinophils % Not Reportable Basophils % Not Reportable Absolute Neutrophils Not Reportable Absolute Lymphocytes Not Reportable Absolute Monocytes Not Reportable Absolute Eosinophils Not Reportable Absolute Basophils Not Reportable Sodium 142.0 Potassium 3.3 L Chloride 98 Carbon Dioxide 33 H Anion Gap 11 BUN 20 Creatinine 0.61 Est GFR ( Amer) > 60 Est GFR (Non-Af Amer) > 60 Glucose 121 H Calcium 8.8 Total Bilirubin 0.3 AST 37 H ALT 44 Alkaline Phosphatase 46 Total Protein 5.6 L Albumin 3.4 L Impressions: Chest X-Ray 06/09/16 10:59 IMPRESSION: Obstructive lung disease. No acute findings Assessment & Plan - Diagnosis (1) Chronic obstructive pulmonary disease with (acute) exacerbation Is this a current diagnosis for this admission?: Yes (2) History of malignant neoplasm of left breast Is this a current diagnosis for this admission?: Yes (3) Hypoxemia requiring supplemental oxygen Is this a current diagnosis for this admission?: Yes (4) Chronic disease anemia Is this a current diagnosis for this admission?: Yes
[2016-06-13] MEDS ORDERED: (PENDING PHARMACY ID) (Alendronate Sodium [Fosamax 70 Mg Tablet] 70 MG) PO SCH (18:56)
[2016-06-13] MEDS: ALPRAZOLAM 0.25 MG TABLET PO PRN (22:27)
[2016-06-14] MEDS: LANSOPRAZOLE 30 MG TAB.RAP.DR PO SCH (05:45)
[2016-06-14 06:12] LABS: ALANINE AMINOTRANSFERASE 48 U/L (9-52); ALKALINE PHOSPHATASE 45 U/L (38-126); ANION GAP 8 (5-19); ASPARTATE AMINO TRANSFERASE 29 U/L (14-36); BILIRUBIN,TOTAL 0.3 mg/dL (0.2-1.3); BLOOD UREA NITROGEN 22 mg/dL (7-20); CALCIUM 8.6 mg/dL (8.4-10.2); CARBON DIOXIDE 35 mmol/L (22-30); CHLORIDE 99 mmol/L (98-107); CREATININE RESULT 0.55 mg/dL (0.52-1.25); GLUCOSE 91 mg/dL (75-110); POTASSIUM 3.2 mmol/L (3.6-5.0); SODIUM 141.9 mmol/L (137-145)
[2016-06-14 06:13] LABS: ABSOLUTE LYMPHOCYTES (AUTO) 0.6 10^3/uL (0.5-4.7); ABSOLUTE MONOCYTES (AUTO) 1.1 10^3/uL (0.1-1.4); ABSOLUTE NEUT (AUTO) 5.1 10^3/uL (1.7-8.2); BASOPHILS % (AUTO) 0.2 % (0-2); HEMATOCRIT 23.7 % (36.0-47.0); HGB HCT DIFFERENCE -0.9; MEAN CORPUSCULAR HEMOGLOBIN 24.2 pg (27.0-33.4); MEAN CORPUSCULAR VOLUME 76 fl (80-97); MONOCYTES % (AUTO) 16.6 % (3-13); RED BLOOD COUNT 3.14 10^6/uL (3.72-5.28); RED CELL DISTRIBUTION WIDTH 19.1 % (11.5-14.0); SEGMENTED NEUTROPHILS % (AUTO) 74.2 % (42-78); WHITE BLOOD COUNT 6.8 10^3/uL (4.0-10.5)
[2016-06-14 06:46] LABS: HEMOGLOBIN 7.6 g/dL (12.0-15.5)
[2016-06-14] MEDS: ENOXAPARIN SODIUM INJ 30 MG/0.3 ML DISP.SYRIN SUBCUT SCH (07:33)
[2016-06-14] MEDS ORDERED: FUROSEMIDE INJ/PF 20 MG/2 ML SDV IV PRN (08:45)
[2016-06-14] MEDS ORDERED: NORMAL SALINE 250 ML IV PRN ×2 (08:45)
[2016-06-14] MEDS: ASPIRIN 81 MG TABLET, ENT COATED PO SCH (09:06)
[2016-06-14] MEDS: MULTIVITAMIN TABLET PO SCH (09:06)
[2016-06-14] MEDS: DILTIAZEM HCL 240 MG CAPSULE.CR PO SCH (09:06)
[2016-06-14] MEDS: POTASSIUM CHLORIDE 10 MEQ TABLET.SA PO SCH ×2 (09:06→13:05)
[2016-06-14] MEDS: CALCIUM CARBONATE 500 MG TABLET PO SCH ×2 (09:07→21:09)
[2016-06-14] MEDS: PREDNISONE 20 MG TABLET PO SCH (09:07)
[2016-06-14] MEDS: MONTELUKAST SODIUM 10 MG TABLET PO SCH (09:07)
[2016-06-14] MEDS: TIOTROPIUM BROMIDE DPI 5 CAP/KIT (18 MCG/CAP) IH SCH (09:07)
[2016-06-14] MEDS: FLUTICASONE/SALMETEROL DISKUS 500-50 MCG/DOSE IH SCH ×2 (09:08→21:09)
[2016-06-14] MEDS: FLUTICASONE NASAL SPRAY 50 MCG/SPRY 120 SPRAY/16 GM NASL SCH (09:08)
[2016-06-14] MEDS: CYCLOSPORINE 0.05% OPH EMULSIO 0.4 ML DROPERETTE OU SCH ×2 (09:08→21:10)
[2016-06-14] MEDS: ACETAMINOPHEN 325 MG TABLET PO PRN ×2 (10:39→23:23)
[2016-06-14] MEDS ORDERED: BUTALB/ACETAMINOPHEN/CAFFEINE 1 TAB EACH PO PRN (14:00)
--- NOTE | 2016-06-14 19:01 | PDOC PROGRESS REPORT ---
Subjective Progress Note for:: 06/14/16 Subjective:: Patient reported no use of bronchodilator so far today. She remain on supplemental oxygen via nasal canula and some improvement in her functional level so far today. No chest pain. No nausea or vomiting. No abdominal pain. She denied any significant headache. Physical Exam Vital Signs: Temp Pulse Resp BP Pulse Ox 98.0 F 74 22 H 127/61 H 96 06/14/16 17:40 06/14/16 17:40 06/14/16 17:40 06/14/16 17:40 06/14/16 17:40 Intake & Output 06/13/16 06/14/16 06/15/16 06:59 06:59 06:59 Intake Total 0282 328 4597 Output Total 800 600 Balance 1772 -113 1248 Physical Exam: General appearance: PRESENT: cooperative, mild distress - with supplemental oxygen at 3L/min Head exam: PRESENT: atraumatic, normocephalic Eye exam: PRESENT: conjunctiva pink, EOMI, PERRLA. ABSENT: scleral icterus Mouth exam: PRESENT: moist Respiratory exam: PRESENT: clear to auscultation emerita, decreased breath sounds Cardiovascular exam: PRESENT: RRR. ABSENT: diastolic murmur, rubs, systolic murmur GI/Abdominal exam: PRESENT: normal bowel sounds, soft. ABSENT: distended, guarding, mass, organomegaly, rebound, tenderness Extremities exam: PRESENT: full ROM Musculoskeletal exam: PRESENT: deformity - related to joint involvement with arthritis Neurological exam: PRESENT: alert, awake, oriented to person, oriented to place , oriented to time, oriented to situation, CN II-XII grossly intact. ABSENT: motor sensory deficit Psychiatric exam: PRESENT: anxious - about sale of her home and furniture content Skin exam: PRESENT: dry, warm Results Laboratory Results: 06/14/16 05:40 06/14/16 05:40 06/14/16 06/14/16 06/14/16 05:40 05:40 09:50 WBC 6.8 RBC 3.14 L Hgb 7.6 L Hct 23.7 L MCV 76 L MCH 24.2 L MCHC 32.0 RDW 19.1 H Plt Count 321 Seg Neutrophils % 74.2 Lymphocytes % 9.0 L Monocytes % 16.6 H Eosinophils % 0.0 Basophils % 0.2 Absolute Neutrophils 5.1 Absolute Lymphocytes 0.6 Absolute Monocytes 1.1 Absolute Eosinophils 0.0 Absolute Basophils 0.0 Sodium 141.9 Potassium 3.2 L Chloride 99 Carbon Dioxide 35 H Anion Gap 8 BUN 22 H Creatinine 0.55 Est GFR ( Amer) > 60 Est GFR (Non-Af Amer) > 60 Glucose 91 Calcium 8.6 Magnesium Total Bilirubin 0.3 AST 29 ALT 48 Alkaline Phosphatase 45 Total Protein 5.0 L Albumin 3.0 L Blood Type O POSITIVE Antibody Screen NEGATIVE 06/14/16 09:50 WBC RBC Hgb Hct MCV MCH MCHC RDW Plt Count Seg Neutrophils % Lymphocytes % Monocytes % Eosinophils % Basophils % Absolute Neutrophils Absolute Lymphocytes Absolute Monocytes Absolute Eosinophils Absolute Basophils Sodium Potassium Chloride Carbon Dioxide Anion Gap BUN Creatinine Est GFR ( Amer) Est GFR (Non-Af Amer) Glucose Calcium Magnesium 2.1 Total Bilirubin AST ALT Alkaline Phosphatase Total Protein Albumin Blood Type Antibody Screen Impressions: Chest X-Ray 06/09/16 10:59 IMPRESSION: Obstructive lung disease. No acute findings Assessment & Plan - Diagnosis (1) Chronic obstructive pulmonary disease with acute exacerbation Is this a current diagnosis for this admission?: YesPlan: See attending physician orders. Maintain on Advair 500/50 mcg 1 puff po bid and Spirival therapy. (2) Hypoxemia requiring supplemental oxygen Is this a current diagnosis for this admission?: YesPlan: See attending physician orders. (3) Chronic disease anemia Is this a current diagnosis for this admission?: YesPlan: s/p transfusion of 2 units of PRBC for significant drop in her Hemoglobin level to 7.6gm/dl. We will obtain post transfusion CBC for further insight into her status. She will continue her iron infusion therapy with Dr. Warner upon discharge. (4) HTN (hypertension) Qualifiers: Hypertension type: essential hypertension Qualified Code(s): I10 - Essential (primary) hypertension Is this a current diagnosis for this admission?: YesPlan: See attending physician orders. (5) Anxiety, generalized Is this a current diagnosis for this admission?: Yes (6) History of malignant neoplasm of left breast Is this a current diagnosis for this admission?: Yes (7) Feeling of incomplete bladder emptying Is this a current diagnosis for this admission?: Yes (8) Constipation Qualifiers: Constipation type: unspecified constipation type Qualified Code(s): K59.00 - Constipation, unspecified Is this a current diagnosis for this admission?: Yes - Time Time Spent with patient: 25-34 minutes Medications reviewed and adjusted accordingly: Yes Anticipated discharge: Home with Homehealth Within: within 24 hours - Inpatient Certification Based on my medical assessment, after consideration of the patient's comorbidities, presenting symptoms, or acuity I expect that the services needed warrant INPATIENT care.: Yes I certify that my determination is in accordance with my understanding of Medicare's requirements for reasonable and necessary INPATIENT services [42 CFR 412.3e].: Yes Medical Necessity: Need Close Monitoring Due to Risk of Patient Decompensation, Need For Continuous Telemetry Monitoring, Need for Nebulizer Therapy and Monitoring of Response, Need for IV Antibiotics, Risk of Complication if Not Cared For in Hospital Post Hospital Care: D/C Physics Department Chair Documentation - Plan Summary Plan Summary: See attending physician orders.
[2016-06-14 20:13] LABS: HGB HCT DIFFERENCE 0.3; MEAN CORPUSCULAR HEMOGLOBIN 26.6 pg (27.0-33.4); MEAN CORPUSCULAR HGB CONC 33.7 g/dL (32.0-36.0); MEAN CORPUSCULAR VOLUME 79 fl (80-97); RED BLOOD COUNT 4.08 10^6/uL (3.72-5.28); RED CELL DISTRIBUTION WIDTH 20.3 % (11.5-14.0)
[2016-06-14 20:26] LABS: HEMATOCRIT 32.1 % (36.0-47.0); HEMOGLOBIN 10.8 g/dL (12.0-15.5)
[2016-06-14] MEDS: ALPRAZOLAM 0.25 MG TABLET PO PRN (21:09)
[2016-06-15] MEDS: LANSOPRAZOLE 30 MG TAB.RAP.DR PO SCH (05:33)
[2016-06-15] MEDS: ENOXAPARIN SODIUM INJ 30 MG/0.3 ML DISP.SYRIN SUBCUT SCH (07:36)
--- NOTE | 2016-06-15 07:59 | PDOC DISCHARGE SUMMARY ---
General - Admit/Disc Date/PCP Admission Date/Primary Care Provider: 06/09/16 18:50 KEITH HAWKINS Discharge Date: 06/15/16 - Discharge Diagnosis (1) Chronic obstructive pulmonary disease with acute exacerbation Is this a current diagnosis for this admission?: Yes (2) Hypoxemia requiring supplemental oxygen Is this a current diagnosis for this admission?: Yes (3) Chronic disease anemia Is this a current diagnosis for this admission?: Yes (4) HTN (hypertension) Is this a current diagnosis for this admission?: Yes (5) Anxiety, generalized Is this a current diagnosis for this admission?: Yes (6) History of malignant neoplasm of left breast Is this a current diagnosis for this admission?: Yes (7) Feeling of incomplete bladder emptying Is this a current diagnosis for this admission?: Yes (8) Constipation Is this a current diagnosis for this admission?: Yes - Additional Information Resuscitation Status: Full Code Discharge Diet: Regular Discharge Activity: Activity As Tolerated, Balance Activity w/Rest, Energy Conservation Home Medications: Alendronate Sodium [Fosamax 70 mg Tablet] 70 mg PO HODGSON 06/09/16 Alprazolam [Xanax 0.25 mg Tablet] 0.25 mg PO Q12HP PRN 06/09/16 Aspirin [Aspirin EC] 81 mg PO DAILY 06/09/16 Calcium Carbonate [Calcium] 500 mg PO Q12 06/09/16 Cyclosporine [Restasis Droperette] 1 drop OP Q12 06/09/16 Diltiazem HCl [Dilt-Xr] 240 mg PO DAILY 06/09/16 Epoetin Alexander [Procrit] 40,000 unit IJ ASDIR PRN 06/09/16 Ergocalciferol (Vitamin D2) [Vitamin D2] 50,000 unit PO Q30D 06/09/16 Fluticasone/Salmeterol [Advair 500-50 Diskus 28 Dose] 1 puff IH Q12 06/09/16 Ipratropium/Albuterol Sulfate [Combivent Respimat 4 gm Mdi] 1 puff IH Q6 Melatonin/Pyridoxine HCl (B6) [Melatonin 5 mg Tablet] 1 tab PO QHS 06/09/16 Mometasone Furoate [Nasonex] 2 sprays NASL DAILY 06/09/16 Montelukast Sodium [Singulair 10 mg Tablet] 10 mg PO DAILY 06/09/16 Multivit-Min/FA/Lycopen/Lutein [Adults 50+ Multivitamin Tablet] 1 tab PO DAILY 06/09/16 Tiotropium [place] [Spiriva Handihaler 18 mcg/dose (30 Dose)] 1 cap IH DAILY Prednisone 10 mg PO ASDIR PRN #15 tablet 06/15/16 History of Present Illness History of Present Illness: ZANA ARREDONDO is a 86 year old female brought by medic personnel ed the ED from [facility] following development of worsening shortness of breath with persistent hypoxemia. Patient do have history of end stage COPD on supplemental oxygen and lung cancer. There is history of anemia with need for iron infusion and upon administration of iron infusion today patient developed increase shortness of breath necessitating transfer to ED for further evaluation and management. Despite 3 rounds of bronchodilator administration she continue to experience significant wheezing and hypoxemia with reported oxgen saturation in the 70's percent with ambulation while on her usual 3L/min supplemental oxygen. She demonstrated improvement with increase in supplemental oxygen. She denied any chest pain, fever or chills. She denied any associated dizziness, vertigo, nausea, vomiting, abdominal pain, or leg swelling. Hospital Course Hospital Course: Patint did respond to bronchodilator therapy and IV Solu-Medrol therapy. She was eventually transitioned to oral Prednisone with which she will be discharged on tapering dosage over next 12 days. Her hospitalization was also significant for profound anemia necessitating transfusion of 2 units of PRBC. Her hemoglobin upon discharge was 10.8gm/dl. She will follow up with Dr Warner regarding further management. We will reinstate her home health services with [facility] upon discharge. Physical Exam Vital Signs: Temp Pulse Resp BP Pulse Ox 97.9 F 84 18 119/65 98 06/15/16 03:50 06/15/16 07:00 06/15/16 03:50 06/15/16 03:50 06/15/16 03:50 Intake & Output 06/14/16 06/15/16 06/16/16 06:59 06:59 06:59 Intake Total 687 2148 Output Total 800 600 Balance -113 1548 Weight 48.9 kg Physical Exam: General appearance: PRESENT: cooperative, mild distress - with supplemental oxygen at 3L/min Head exam: PRESENT: atraumatic, normocephalic Eye exam: PRESENT: conjunctiva pink, EOMI, PERRLA. ABSENT: scleral icterus Mouth exam: PRESENT: moist Respiratory exam: PRESENT: clear to auscultation emerita, decreased breath sounds Cardiovascular exam: PRESENT: RRR. ABSENT: diastolic murmur, rubs, systolic murmur GI/Abdominal exam: PRESENT: normal bowel sounds, soft. ABSENT: distended, guarding, mass, organomegaly, rebound, tenderness Extremities exam: PRESENT: full ROM Musculoskeletal exam: PRESENT: deformity - related to joint involvement with arthritis Neurological exam: PRESENT: alert, awake, oriented to person, oriented to place , oriented to time, oriented to situation, CN II-XII grossly intact. ABSENT: motor sensory deficit Psychiatric exam: PRESENT: anxious - about sale of her home and furniture content Skin exam: PRESENT: dry, warm Results Laboratory Results: 06/14/16 20:00 06/14/16 05:40 06/14/16 06/14/16 06/14/16 09:50 09:50 20:00 WBC 9.0 RBC 4.08 Hgb 10.8 L D Hct 32.1 L MCV 79 L MCH 26.6 L MCHC 33.7 RDW 20.3 H Plt Count 280 Magnesium 2.1 Blood Type O POSITIVE Antibody Screen NEGATIVE Impressions: Chest X-Ray 06/09/16 10:59 IMPRESSION: Obstructive lung disease. No acute findings Qualifiers PATEINT BEING DISCHARGED WITH ANY OF THE FOLLOWING DIAGNOSIS?: No Plan Discharge Plan: D/C home today. Follow up in office as instructed upon discharge. Follow up with Dr. Warner as earlier arranged on 06/16/2016. Time Spent: Less than 30 Minutes
[2016-06-15 08:23] VITALS: BP 148/65
[2016-06-15] MEDS: CYCLOSPORINE 0.05% OPH EMULSIO 0.4 ML DROPERETTE OU SCH (09:05)
[2016-06-15] MEDS: DILTIAZEM HCL 240 MG CAPSULE.CR PO SCH (09:06)
[2016-06-15] MEDS: TIOTROPIUM BROMIDE DPI 5 CAP/KIT (18 MCG/CAP) IH SCH (09:06)
[2016-06-15] MEDS: FLUTICASONE/SALMETEROL DISKUS 500-50 MCG/DOSE IH SCH (09:06)
[2016-06-15] MEDS: FLUTICASONE NASAL SPRAY 50 MCG/SPRY 120 SPRAY/16 GM NASL SCH (09:06)
[2016-06-15] MEDS: ASPIRIN 81 MG TABLET, ENT COATED PO SCH (09:07)
[2016-06-15] MEDS: MONTELUKAST SODIUM 10 MG TABLET PO SCH (09:07)
[2016-06-15] MEDS: MULTIVITAMIN TABLET PO SCH (09:07)
[2016-06-15] MEDS: CALCIUM CARBONATE 500 MG TABLET PO SCH (09:07)
[2016-06-15] MEDS: PREDNISONE 20 MG TABLET PO SCH (09:07)
[2016-06-26] MEDS ORDERED: ERGOCALCIFEROL (VITAMIN D2) 50000 UNIT (1.25 MG) CAPSULE PO SCH (10:00)
== END 2016-06-15 11:48 | disposition home health service (06) | DRG 192 ==
LOC: ER 10:51 → EH 13:53 → UNDOADMIN 13:53 → EH 18:50 → 4S 21:45
PROVIDERS: ADMIT Internal Medicine Geriatric Medicine; ATTEND Internal Medicine Geriatric Medicine
PROC: 30233N1 Transfusion of Nonautologous Red Blood Cells into Peripheral Vein, Percutaneous Approach (ICD-10-PCS; principal; 2016-06-14)
DX: J44.1 Chronic obstructive pulmonary disease with (acute) exacerbation (principal); R09.02 Hypoxemia; D64.9 Anemia, unspecified; E87.6 Hypokalemia; I10 Essential (primary) hypertension; R33.9 Retention of urine, unspecified; K59.00 Constipation, unspecified; M19.90 Unspecified osteoarthritis, unspecified site; M81.0 Age-related osteoporosis without current pathological fracture; F41.1 Generalized anxiety disorder; Z79.82 Long term (current) use of aspirin; Z79.899 Other long term (current) drug therapy; Z87.891 Personal history of nicotine dependence; Z85.3 Personal history of malignant neoplasm of breast
CPT/HCPCS: 36415; 36430; 71010; 80048; 80053; 80076; 81001; 82550; 83605; 83690; 83735; 83880; 84100; 84484; 85025; 85027; 85610; 85730; 86850; 86900; 86901; 86920; 87040; 93005; 93010; 94640; 99285; J1650; J1940; J2930; J3480; J3490; J7030; J7512; J7620; P9016

== ENCOUNTER 2016-07-06 11:26 | Inpatient (IN) | payer MEDICARE, OTHER ==
[2016-07-06] MEDS ORDERED: IPRATROPIUM/ALBUTEROL 0.5-2.5 MG/3 ML AMPUL NEB ONE (11:41)
--- NOTE | 2016-07-06 11:46 | ER Document Report ---
ED General - General Chief Complaint: Shortness Of Breath Stated Complaint: RESPIRATORY DISTRESS Time seen by provider: 11:42 Mode of Arrival: Medic Information source: Patient Notes: 86-year-old female with shortness of breath worse than her baseline associated with dyspnea on exertion and nonproductive cough beginning about 2 weeks ago. She is placed on antibiotics by her physician she thinks about 8 days ago and has 2 days left but says her breathing became worse yesterday and prompted call 911 this morning. Patient reports using oxygen 2 L nasal cannula continuously and was found have an oxygen saturation 78% in the field which appeared 100% on 8 L nasal cannula along with 125 SOLU-MEDROL and 2 DuoNeb treatments in route. Patient denies fever, chills, nausea, vomiting, diarrhea, chest pain, abdominal pain, back pain, dysuria, swelling to extremities, pain numbness weakness to extremities, or syncope. Jaylon care physician is Dr. Jones and she also sees Dr. crabtree for pulmonology and Dr. Warner for iron infusions. Patient requests DO NOT RESUSCITATE status. She is awake and mentating clearly and does understand the implications of that Physical Exam: General: Alert, markedly tachypneic. HEENT: Normocephalic. Atraumatic. PERRLA. Extraocular movements intact. Oropharynx clear. Neck: Supple. Non-tender. No JVD Respiratory: Tachypnea cable speak one or 2 words at a time. Poor air movement bilaterally. Faint wheezes bilaterally and prolonged expiratory phase some accessory muscle use Cardiovascular: Tachycardic regular PMI not displaced Abdominal: Normal Inspection. Soft, non-tender. No distension. Normal Bowel Sounds. Back: Non-tender. No deformity or step off. Extremities: Moves all four extremities. Upper extremities: Normal inspection. Non-tender. Normal color. Normal ROM. Normal temperature. Lower extremities: Normal inspection. Non-tender. No edema. Normal color. Normal ROM. Normal temperature. Neurological: Speech clear mentation normal moves all 4 extremities well Psychological: Normal affect. Normal Mood. Skin: Warm. Dry. Normal color. TRAVEL OUTSIDE OF THE [place] IN LAST 30 DAYS: No - Related Data Allergies/Adverse Reactions: Penicillins Allergy (Verified 06/09/16 11:17) SWELLING, ITCHING Sulfa (Sulfonamide Antibiotics) Allergy (Verified 06/09/16 11:17) SWELLING, ITCHING, RASH Tetanus Vaccines and Toxoid [Tetanus] Allergy (Verified 06/09/16 11:17) SWELLING AT SITE Past Medical History - Social History Smoking Status: Former Smoker Family History: Reviewed & Not Pertinent - Past Medical History Cardiac Medical History: Reports: Hx Hypertension Denies: Hx Coronary Artery Disease, Hx Heart Attack Pulmonary Medical History: Reports: Hx Bronchitis, Hx COPD, Hx Pneumonia Denies: Hx Asthma Neurological Medical History: Denies: Hx Cerebrovascular Accident, Hx Seizures Renal/ Medical History: Denies: Hx Peritoneal Dialysis GI Medical History: Denies: Hx Hepatitis, Hx Hiatal Hernia, Hx Ulcer Musculoskeltal Medical History: Reports Hx Arthritis - OSTEOARTHRITIS, OSTEOPOROSIS Infectious Medical History: Denies: Hx Hepatitis Past Surgical History: Reports: Hx Mastectomy - LUMPECTOMY AVOID LEFT ARM. Denies: Hx Open Heart Surgery, Hx Pacemaker - Immunizations Hx Diphtheria, Pertussis, Tetanus Vaccination: No - ALLERGIC TO TETANUS VACCINE Hx Pneumococcal Vaccination: 12/26/14 Review of Systems - Review of Systems Constitutional: Weakness. denies: Chills, Fever EENT: denies: Ear pain, Throat pain Cardiovascular: Dyspnea. denies: Chest pain, Syncope Respiratory: Cough, Short of breath, Wheezing Gastrointestinal: denies: Abdominal pain, Diarrhea, Nausea, Vomiting, Blood in vomit, Black stools, Rectal bleeding Genitourinary: Incontinence. denies: Burning, Dysuria Female Genitourinary: Post menopausal Musculoskeletal: denies: Back pain, Leg swelling, Ankle swelling Skin: denies: Rash Hematologic/Lymphatic: denies: Swollen glands Neurological/Psychological: denies: Weakness, Numbness Physical Exam - Vital signs Vitals: Temp Pulse Resp BP Pulse Ox 98.4 F 90 23 H 114/59 L 89 L 07/06/16 11:28 07/06/16 11:28 07/06/16 11:28 07/06/16 11:28 07/06/16 11:28 Course - Re-evaluation Re-evalutation: 07/06/16 13:40 Patient continues to be tachypnea with poor air movement after multiple nebulizer treatments IV steroids magnesium Rocephin and oxygen saturation is 84 % on 4 L nasal cannula. I discussed case with patient's physician Dr. Montoya he will be admitting patient. Patient will be started on BiPAP with minimal supplemental oxygen to keep her saturation at 90%. Per patient's wishes I have ordered DO NOT RESUSCITATE status. Patient also noted to be anemic but this is minimally changed from her last admission. Patient reports she is due for iron infusion tomorrow - Vital Signs Vital signs: Temp Pulse Resp BP Pulse Ox 98.4 F 90 23 H 114/59 L 89 L 07/06/16 11:28 07/06/16 11:28 07/06/16 12:03 07/06/16 11:28 07/06/16 11:28 - Laboratory Result Diagrams: 07/06/16 11:45 07/06/16 11:45 Laboratory results interpreted by me: 07/06/16 07/06/16 11:45 11:45 RBC 3.41 L Hgb 9.2 L Hct 27.9 L RDW 23.4 H Lymphocytes % 10.6 L Carbon Dioxide 33 H BUN 23 H Glucose 118 H AST 39 H Creatine Kinase 26 L - Diagnostic Test Radiology reviewed: Image reviewed, Reports reviewed - EKG Interpretation by Me Additional EKG results interpreted by me: 07/06/16 13:39 EKG reviewed by myself shows sinus rhythm at 86 with occasional PVC no acute changes Discharge - Discharge Clinical Impression: Acute on chronic respiratory failure with hypoxemia, Acute exacerbation of emphysema, Anemia Condition: Fair Disposition: ADMITTED INPATIENT Admitting Provider: Lindsay Unit Admitted: [facility]
[2016-07-06 11:54] LABS: ABSOLUTE BASOPHILS # (AUTO) 0.1 10^3/uL (0.0-0.2); ABSOLUTE NEUT (AUTO) 7.4 10^3/uL (1.7-8.2); BASOPHILS % (AUTO) 1.1 % (0-2); HEMATOCRIT 27.9 % (36.0-47.0); HEMOGLOBIN 9.2 g/dL (12.0-15.5); HGB HCT DIFFERENCE -0.3; LYMPHOCYTES % (AUTO) 10.6 % (13-45); MEAN CORPUSCULAR VOLUME 82 fl (80-97); MONOCYTES % (AUTO) 10.4 % (3-13); RED BLOOD COUNT 3.41 10^6/uL (3.72-5.28); RED CELL DISTRIBUTION WIDTH 23.4 % (11.5-14.0); SEGMENTED NEUTROPHILS % (AUTO) 77.9 % (42-78); WHITE BLOOD COUNT 9.5 10^3/uL (4.0-10.5)
[2016-07-06] MEDS: MAGNESIUM SULFATE/D5W 100 ML IV SCH ×2 (11:55→13:04)
[2016-07-06 12:15] LABS: ALANINE AMINOTRANSFERASE 25 U/L (9-52); ALBUMIN 3.7 g/dL (3.5-5.0); ALKALINE PHOSPHATASE 58 U/L (38-126); ANION GAP 7 (5-19); ASPARTATE AMINO TRANSFERASE 39 U/L (14-36); BILIRUBIN,DIRECT 0.3 mg/dL (0.0-0.4); BILIRUBIN,TOTAL 0.5 mg/dL (0.2-1.3); BLOOD UREA NITROGEN 23 mg/dL (7-20); CALCIUM 8.9 mg/dL (8.4-10.2); CARBON DIOXIDE 33 mmol/L (22-30); CHLORIDE 102 mmol/L (98-107); CREATINE KINASE 26 U/L (30-135); CREATININE RESULT 0.63 mg/dL (0.52-1.25); GLUCOSE 118 mg/dL (75-110); POTASSIUM 4.3 mmol/L (3.6-5.0); SODIUM 142.3 mmol/L (137-145); TOTAL PROTEIN 6.3 g/dL (6.3-8.2)
[2016-07-06 12:26] LABS: CREATINE KINASE MB 0.95 ng/mL (<4.55)
[2016-07-06 12:27] LABS: TROPONIN I < 0.012 ng/mL
[2016-07-06] MEDS ORDERED: CEFTRIAXONE 1 GM/D5W RTU 50 ML IV ONE (12:52)
--- NOTE | 2016-07-06 17:26 | EKG REPORT ---
SEVERITY:- ABNORMAL ECG - SINUS RHYTHM WITH PVCS. POOR R PROGRESSION IN ANT. PRECORDIAL LEADS SUSPECT OOLD ANTERIOR CT : Confirmed by: Talat Junior MD 06-Jul-2016 17:26:20
--- NOTE | 2016-07-06 20:53 | PDOC H&P ---
History of Present Illness Admission Date/PCP: 07/06/16 13:57 KEITH ROSS Patient complains of: Worsening difficuty with breathing History of Present Illness: ZANA ARREDONDO is a 86 year old female known to my practice who was brought to the ED by medic due to worsening sob. Patient was recently discharged from this facility after presenting in similar situation. She reported persistency of her difficulty with breathing despite usage of supplemental oxygen round the clock and bronchodilator therapy. Due to worsening symptoms she activated EMS service and was brought to the ED. Her oxygen saturation was report in the field at upper 70's on 2L/minute supplemental oxygen but improved with increase concentration to 8L/minute and initial treatment in the ED with DuoNeb, IV Solu Medrol. Patient reported compliance with her medications as prescribed. She denied associated fever or chills but always cold anyway. She denied any chest pain. No nausea, vomiting or abdominal pain. She did expressed to ED doctor that she want's to remain on DNR status. Past Medical History Cardiac Medical History: Reports: Hypertension Denies: Coronary Artery Disease, Myocardial Infarction Pulmonary Medical History: Reports: Bronchitis, Chronic Obstructive Pulmonary Disease (COPD), Pneumonia Denies: Asthma Neurological Medical History: Denies: Seizures GI Medical History: Denies: Hepatitis, Hiatal Hernia Musculoskeltal Medical History: Reports: Arthritis - OSTEOARTHRITIS, OSTEOPOROSIS Hematology: Reports: Anemia - hx of Denies: Sickle Cell Disease Past Surgical History Past Surgical History: Reports: Mastectomy - LUMPECTOMY AVOID LEFT ARM Denies: Amputation, Pacemaker Social History Smoking Status: Former Smoker - Advance Directive Resuscitation Status: Do Not Resuscitate Family History Family History: Reviewed & Not Pertinent Parental Family History Reviewed: Yes Children Family History Reviewed: Yes Sibling(s) Family History Reviewed.: Yes Medication/Allergy Home Medications: Alendronate Sodium [Fosamax 70 mg Tablet] 70 mg PO HODGSON@1000 07/06/16 Alprazolam [Xanax 0.25 mg Tablet] 0.25 mg PO Q12HP PRN 07/06/16 Aspirin [Ecotrin 81 mg EC Tablet] 81 mg PO DAILY 07/06/16 Calcium Carbonate [Calcium] 500 mg PO BID 07/06/16 Cyclosporine 0.05% Oph Emulsio [Restasis 0.05% Oph Emulsion Pf 0.4 ml] 1 drop OU Q12 07/06/16 Diltiazem HCl [Dilt-Xr] 240 mg PO DAILY 07/06/16 Ergocalciferol (Vitamin D2) [Vitamin D2] 50,000 unit PO ASDIR PRN 07/06/16 Fluticasone/Salmeterol [Advair 500-50 Diskus 14 Dose/Diskus] 1 puff IH Q12 07/06 Ipratropium/Albuterol Sulfate [Combivent Respimat 4 gm Mdi] 1 puff IH Q6H Ipratropium/Albuterol Sulfate [Iprat-Albut 0.5-3(2.5) mg/3 ml] 3 ml NEB Q4HP PRN 07/06/16 Melatonin 5 mg PO QHS 07/06/16 Mometasone Furoate [Nasonex] 2 spray NASL DAILY 07/06/16 Montelukast Sodium [Singulair 10 mg Tablet] 10 mg PO DAILY 07/06/16 Multivitamin [Daily Multiple Vitamin] 1 each PO DAILY 07/06/16 Tiotropium I[place]quois [Spiriva Handihaler 5 Cap/Kit (18 Mcg/Cap)] 1 puff IH DAILY 07/06/16 Allergies/Adverse Reactions: Penicillins Allergy (Verified 06/09/16 11:17) SWELLING, ITCHING Sulfa (Sulfonamide Antibiotics) Allergy (Verified 06/09/16 11:17) SWELLING, ITCHING, RASH Tetanus Vaccines and Toxoid [Tetanus] Allergy (Verified 06/09/16 11:17) SWELLING AT SITE Review of Systems Constitutional: PRESENT: anorexia - related to her baseline chronic medical condition. ABSENT: as per HPI, chills, fatigue, fever(s), headache(s), night sweats, weakness, weight gain, weight loss, other Eyes: PRESENT: visual disturbances - CAWG Ears: ABSENT: as per HPI, hearing changes, other Nose, Mouth, and Throat: ABSENT: as per HPI, headache(s), mouth pain, sore throat, vertigo, other Cardiovascular: PRESENT: dyspnea on exertion - related to her baseline end stage COPD Respiratory: PRESENT: dyspnea. ABSENT: as per HPI, cough, hemoptysis, sputum, other Gastrointestinal: ABSENT: as per HPI, abdominal pain, bloating, coffee ground emesis, constipation, diarrhea, dysphagia, heartburn, hematemesis, hematochezia , melena, nausea, vomiting, other Genitourinary: ABSENT: dysuria, hematuria Musculoskeletal: PRESENT: deformity - related to multiple joints ionvolvement with arthritis. ABSENT: as per HPI, back pain, joint swelling, muscle weakness , other Integumentary: ABSENT: as per HPI, diaphoresis, erythema, lesions, pruritus, rash, wounds, other Neurological: PRESENT: weakness - generalized and related to her chronic medical condition. ABSENT: as per HPI, abnormal gait, abnormal movements, abnormal speech, confusion, convulsions, dizziness, focal weakness, frequent falls, lack of coordination, memory loss, numbness, paresthesias, restless legs , syncope, tingling, tremor(s), vertigo, other Psychiatric: PRESENT: anxiety - related to her medical condition and issues with selling her house Endocrine: PRESENT: cold intolerance - reported that she is always cold. ABSENT : as per HPI, flushing, heat intolerance, polydipsia, polyphagia, polyuria, other Hematologic/Lymphatic: ABSENT: easy bleeding, easy bruising, lymphadenopathy Allergic/Immunologic: ABSENT: as per HPI, seasonal rhinorrhea, other Physical Exam Vital Signs: Temp Pulse Resp BP Pulse Ox 98.4 F 92 32 H 129/77 H 96 07/06/16 11:28 07/06/16 16:47 07/06/16 18:01 07/06/16 18:00 07/06/16 18:01 General appearance: PRESENT: no acute distress, cooperative, mild distress, thin Head exam: PRESENT: atraumatic, normocephalic Eye exam: PRESENT: conjunctiva pink, EOMI, PERRLA. ABSENT: scleral icterus Ear exam: PRESENT: normal external ear exam Mouth exam: PRESENT: moist, tongue midline Throat exam: ABSENT: post pharyngeal erythema, tonsillar erythema, tonsillar exudate, tonsillogmegaly, other Neck exam: PRESENT: full ROM. ABSENT: carotid bruit, JVD, lymphadenopathy, thyromegaly Respiratory exam: PRESENT: decreased breath sounds, prolonged expiratory phas, rhonchi, wheezes. ABSENT: accessory muscle use, chest wall tenderness, clear to auscultation emerita, crackles, rales, retraction, stridor, symmetrical, tachypnea, unlabored, other Cardiovascular exam: PRESENT: RRR. ABSENT: diastolic murmur, rubs, systolic murmur Pulses: PRESENT: normal dorsalis pedis pul, +2 pedal pulses bilateral Vascular exam: PRESENT: normal capillary refill GI/Abdominal exam: PRESENT: normal bowel sounds, soft. ABSENT: distended, guarding, mass, organolmegaly, rebound, tenderness Rectal exam: PRESENT: deferred Extremities exam: PRESENT: full ROM Musculoskeletal exam: PRESENT: deformity - related to multipler joints involvement with arthritis Neurological exam: PRESENT: alert, awake, oriented to person, oriented to place , oriented to time, oriented to situation, CN II-XII grossly intact, motor sensory deficit Psychiatric exam: PRESENT: anxious - related to her acute decompensation of end stage COPD Skin exam: PRESENT: dry, intact, warm. ABSENT: cyanosis, rash Results Laboratory Results: I reviewed her laboratory report on [facility] and form significant part of my medical decision making. Impressions: Chest X-Ray 07/06/16 11:40 IMPRESSION: COPD. BASILAR ATELECTASIS/ SCARRING. NO DEFINITE ACUTE FINDINGS. Assessment & Plan - Diagnosis (1) Acute on chronic respiratory failure with hypoxemia Is this a current diagnosis for this admission?: YesPlan: See admitting physician orders. Patient will remain on BiPAP support to reduce excessive use of supplemental oxygen. We will continue to taper off non- invasive respiratory support and supplemental oxygen as tolerated. (2) Anxiety, generalized Is this a current diagnosis for this admission?: YesPlan: See admitting physician orders. (3) Chronic obstructive pulmonary disease with (acute) exacerbation Is this a current diagnosis for this admission?: YesPlan: See admitting physician orders. She will remain on bronchodilator with IV Solu Medrol therapy. In view of persistent on symptoms over last 2 weeks and worsening reported status in last 2 days she may benefit from IV antibiotic therapy although her chest X ray suggested atelectasis possible underlying air space disease process cannot be ruled out. (4) HTN (hypertension) Qualifiers: Hypertension type: essential hypertension Qualified Code(s): I10 - Essential (primary) hypertension Is this a current diagnosis for this admission?: YesPlan: See admitting physician orders. (5) History of malignant neoplasm of left breast Is this a current diagnosis for this admission?: YesPlan: See admitting physician orders. Likely continue source of her anemia. (6) Hypoxemia requiring supplemental oxygen Is this a current diagnosis for this admission?: YesPlan: See admitting physician orders. Continue use of BiPAP as much as necessary to aide weaning down of supplemental oxygen usage. (7) Chronic disease anemia Is this a current diagnosis for this admission?: YesPlan: See admitting physician orders. Monitor her hemoglobin and transfuse PRBC if necessary - Time Time Spent: 50 to 70 Minutes Critical Time spent with patient: 15-24 minutes Medications reviewed and adjusted accordingly: Yes Anticipated discharge: Home with Homehealth Within: Other - Inpatient Certification Based on my medical assessment, after consideration of the patient's comorbidities, presenting symptoms, or acuity I expect that the services needed warrant INPATIENT care.: Yes I certify that my determination is in accordance with my understanding of Medicare's requirements for reasonable and necessary INPATIENT services [42 CFR 412.3e].: Yes Medical Necessity: Need Close Monitoring Due to Risk of Patient Decompensation, Need For IV Fluids, Need For Continuous Telemetry Monitoring, Need for Nebulizer Therapy and Monitoring of Response, Need for IV Antibiotics, Risk of Complication if Not Cared For in Hospital 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
[2016-07-06] MEDS ORDERED: ACETAMINOPHEN 325 MG TABLET PO PRN (21:10)
[2016-07-06] MEDS: ALPRAZOLAM 0.25 MG TABLET PO PRN (21:31)
[2016-07-06] MEDS ORDERED: (PENDING PHARMACY ID) (Melatonin [Melatonin] 5 MG) PO SCH (22:00)
[2016-07-06] MEDS ORDERED: AZTREONAM 1 GM in DEXTROSE 5%-WATER 50 ML IV ONE (22:30)
[2016-07-06] MEDS ORDERED: LEVOFLOXACIN 500 MG/D5W RTU 500 MG/100 ML RTUPB IV ONE (22:30)
[2016-07-06 22:41] LABS: PROTHROMBIN TIME 13.1 SEC (11.4-15.4)
[2016-07-06 22:42] LABS: PARTIAL THROMBOPLASTIN TIME 31.7 SEC (23.5-35.8)
[2016-07-06] MEDS: NORMAL SALINE 1000 ML 1,000 ML IV PRN (22:57)
[2016-07-06] MEDS: CYCLOSPORINE 0.05% OPH EMULSIO 0.4 ML DROPERETTE OU SCH (23:00)
[2016-07-06] MEDS: AZTREONAM 1 GM in DEXTROSE 5%-WATER 100 ML IV SCH (23:00)
[2016-07-06] MEDS: METHYLPREDNISOLONE INJ 125 MG/2 ML SDV IV SCH (23:01)
[2016-07-07] MEDS: METHYLPREDNISOLONE INJ 125 MG/2 ML SDV IV SCH ×3 (05:02→21:10)
[2016-07-07] MEDS: AZTREONAM 1 GM in DEXTROSE 5%-WATER 100 ML IV SCH ×3 (05:02→21:10)
[2016-07-07] MEDS: LANSOPRAZOLE 30 MG TAB.RAP.DR PO SCH (05:03)
[2016-07-07 05:06] LABS: ALANINE AMINOTRANSFERASE 29 U/L (9-52); ALBUMIN 3.4 g/dL (3.5-5.0); ALKALINE PHOSPHATASE 56 U/L (38-126); ANION GAP 8 (5-19); ASPARTATE AMINO TRANSFERASE 18 U/L (14-36); BILIRUBIN,DIRECT 0.1 mg/dL (0.0-0.4); BILIRUBIN,TOTAL 0.3 mg/dL (0.2-1.3); BLOOD UREA NITROGEN 15 mg/dL (7-20); CALCIUM 8.5 mg/dL (8.4-10.2); CARBON DIOXIDE 30 mmol/L (22-30); CHLORIDE 104 mmol/L (98-107); CREATININE RESULT 0.53 mg/dL (0.52-1.25); GLUCOSE 129 mg/dL (75-110); POTASSIUM 4.4 mmol/L (3.6-5.0); SODIUM 141.7 mmol/L (137-145); TOTAL PROTEIN 5.5 g/dL (6.3-8.2)
[2016-07-07 05:21] LABS: ABSOLUTE LYMPHOCYTES (AUTO) 0.2 10^3/uL (0.5-4.7); ABSOLUTE MONOCYTES (AUTO) 0.1 10^3/uL (0.1-1.4); ABSOLUTE NEUT (AUTO) 3.5 10^3/uL (1.7-8.2); BASOPHILS % (AUTO) 0.1 % (0-2); HEMATOCRIT 24.9 % (36.0-47.0); HEMOGLOBIN 8.5 g/dL (12.0-15.5); HGB HCT DIFFERENCE 0.6; LYMPHOCYTES % (AUTO) 5.4 % (13-45); MEAN CORPUSCULAR HEMOGLOBIN 27.3 pg (27.0-33.4); MEAN CORPUSCULAR VOLUME 80 fl (80-97); MONOCYTES % (AUTO) 1.7 % (3-13); RED CELL DISTRIBUTION WIDTH 23.8 % (11.5-14.0); SEGMENTED NEUTROPHILS % (AUTO) 92.8 % (42-78); WHITE BLOOD COUNT 3.8 10^3/uL (4.0-10.5)
[2016-07-07 05:44] LABS: ANISOCYTOSIS 3+; BURR CELLS SLIGHT; HYPOCHROMASIA SLIGHT; MICROCYTOSIS SLIGHT; OVALOCYTES SLIGHT; POIKILOCYTOSIS SLIGHT; POLYCHROMASIA SLIGHT; SCHISTOCYTES SLIGHT; TOXIC GRANULATION SLIGHT
[2016-07-07] MEDS ORDERED: AZTREONAM 0.5 GM in DEXTROSE 5%-WATER 50 ML IV SCH (06:00)
[2016-07-07] MEDS ORDERED: AZTREONAM 1 GM in DEXTROSE 5%-WATER 50 ML IV SCH (06:00)
--- NOTE | 2016-07-07 07:20 | EKG REPORT ---
SEVERITY:- BORDERLINE ECG - SINUS RHYTHM VENTRICULAR PREMATURE COMPLEX BORDERLINE R WAVE PROGRESSION, ANTERIOR LEADS CONSIDER OLD ANTERIOR KS : Confirmed by: Talat Junior MD 07-Jul-2016 07:20:21
[2016-07-07] MEDS ORDERED: ACETAMINOPHEN 325 MG TABLET PO PRN (08:12)
[2016-07-07] MEDS: ENOXAPARIN SODIUM INJ 30 MG/0.3 ML DISP.SYRIN SUBCUT SCH (08:19)
--- NOTE | 2016-07-07 08:49 | PDOC PROGRESS REPORT ---
Subjective Progress Note for:: 07/07/16 Subjective:: Patient breathing remain fairly stable. Not very willing with use of BiPAP. Remain on nasal canula supplementation at 2-3 L/min with fairly satisfactory oxygen saturation. No chest pain. No fever or chills. No nausea or vomiting. Physical Exam Vital Signs: Temp Pulse Resp BP Pulse Ox 97.8 F 92 20 122/62 100 07/07/16 08:07 07/07/16 08:07 07/07/16 08:07 07/07/16 08:07 07/07/16 08:07 Intake & Output 07/06/16 07/07/16 07/08/16 06:59 06:59 06:59 Intake Total 815 Output Total 0 Balance 815 Weight 48 kg General appearance: PRESENT: no acute distress, mild distress - with lip breathing, thin Head exam: PRESENT: atraumatic, normocephalic Eye exam: PRESENT: conjunctiva pink, EOMI, PERRLA. ABSENT: scleral icterus Respiratory exam: PRESENT: clear to auscultation emerita, decreased breath sounds, rhonchi - minimal with end expiratory phase Cardiovascular exam: PRESENT: RRR. ABSENT: diastolic murmur, rubs, systolic murmur Vascular exam: PRESENT: normal capillary refill GI/Abdominal exam: PRESENT: normal bowel sounds, soft. ABSENT: distended, guarding, mass, organolmegaly, rebound, tenderness Musculoskeletal exam: PRESENT: deformity - related to multiple joints involvement with arthritis Neurological exam: PRESENT: alert, awake, CN II-XII grossly intact, motor sensory deficit Psychiatric exam: PRESENT: anxious Skin exam: PRESENT: dry, intact, warm. ABSENT: cyanosis, rash Results Laboratory Results: 07/07/16 04:30 07/07/16 04:30 07/07/16 07/07/16 04:30 04:30 WBC 3.8 L RBC 3.10 L Hgb 8.5 L Hct 24.9 L MCV 80 MCH 27.3 MCHC 34.0 RDW 23.8 H Plt Count 367 Seg Neutrophils % 92.8 H Lymphocytes % 5.4 L Monocytes % 1.7 L Eosinophils % 0.0 Basophils % 0.1 Absolute Neutrophils 3.5 Absolute Lymphocytes 0.2 L Absolute Monocytes 0.1 Absolute Eosinophils 0.0 Absolute Basophils 0.0 Sodium 141.7 Potassium 4.4 Chloride 104 Carbon Dioxide 30 Anion Gap 8 BUN 15 Creatinine 0.53 Est GFR ( Amer) > 60 Est GFR (Non-Af Amer) > 60 Glucose 129 H Calcium 8.5 Total Bilirubin 0.3 AST 18 ALT 29 Alkaline Phosphatase 56 Total Protein 5.5 L Albumin 3.4 L Impressions: Chest X-Ray 07/06/16 11:40 IMPRESSION: COPD. BASILAR ATELECTASIS/ SCARRING. NO DEFINITE ACUTE FINDINGS. Assessment & Plan - Diagnosis (1) Acute on chronic respiratory failure with hypoxemia Is this a current diagnosis for this admission?: YesPlan: Continue IV slou-medrol and bronchodialtor therapy. She will remain on oxygen supplementation via nasal canula an use of BiPAP at night or while sleeping. (2) Anxiety, generalized Is this a current diagnosis for this admission?: YesPlan: Maintain on low dose Alprazolam usage on prn basis. (3) Chronic obstructive pulmonary disease with (acute) exacerbation Is this a current diagnosis for this admission?: YesPlan: Continue currrent medication management (4) HTN (hypertension) Qualifiers: Hypertension type: essential hypertension Qualified Code(s): I10 - Essential (primary) hypertension Is this a current diagnosis for this admission?: YesPlan: See attending physician order. (5) History of malignant neoplasm of left breast Is this a current diagnosis for this admission?: YesPlan: See attending physician order. (6) Hypoxemia requiring supplemental oxygen Is this a current diagnosis for this admission?: YesPlan: See attending physician order. (7) Chronic disease anemia Is this a current diagnosis for this admission?: YesPlan: See attending physician order. - Time Time Spent with patient: 25-34 minutes Medications reviewed and adjusted accordingly: Yes Anticipated discharge: Home with Homehealth Within: Other - Inpatient Certification Medical Necessity: Need Close Monitoring Due to Risk of Patient Decompensation, Need For IV Fluids, Need For Continuous Telemetry Monitoring, Need for Nebulizer Therapy and Monitoring of Response, Need for IV Antibiotics, Risk of Complication if Not Cared For in Hospital Post Hospital Care: D/C Bag Turner Documentation - Plan Summary Plan Summary: See attending physician orders.
[2016-07-07] MEDS: CALCIUM CARBONATE 500 MG TABLET PO SCH ×2 (09:53→18:14)
[2016-07-07] MEDS: MONTELUKAST SODIUM 10 MG TABLET PO SCH (09:53)
[2016-07-07] MEDS: MULTIVITAMIN TABLET PO SCH (09:53)
[2016-07-07] MEDS: DILTIAZEM HCL 240 MG CAPSULE.CR PO SCH (09:53)
[2016-07-07] MEDS: TIOTROPIUM BROMIDE DPI 5 CAP/KIT (18 MCG/CAP) IH SCH (09:54)
[2016-07-07] MEDS: FLUTICASONE NASAL SPRAY 50 MCG/SPRY 120 SPRAY/16 GM NASL SCH (09:54)
[2016-07-07] MEDS: CYCLOSPORINE 0.05% OPH EMULSIO 0.4 ML DROPERETTE OU SCH ×2 (09:54→21:10)
[2016-07-07] MEDS: ASPIRIN 81 MG TABLET, ENT COATED PO SCH (09:55)
[2016-07-07] MEDS: ALPRAZOLAM 0.25 MG TABLET PO PRN (21:10)
[2016-07-07] MEDS: NORMAL SALINE 1000 ML 1,000 ML IV PRN (21:10)
[2016-07-07] MEDS: LEVOFLOXACIN 250 MG/D5W RTU 250 MG/50 ML RTUPB IV SCH (21:58)
[2016-07-08] MEDS: METHYLPREDNISOLONE INJ 125 MG/2 ML SDV IV SCH ×3 (05:19→21:11)
[2016-07-08] MEDS: LANSOPRAZOLE 30 MG TAB.RAP.DR PO SCH (05:19)
[2016-07-08] MEDS: AZTREONAM 1 GM in DEXTROSE 5%-WATER 100 ML IV SCH ×3 (05:19→21:13)
[2016-07-08] MEDS: ENOXAPARIN SODIUM INJ 30 MG/0.3 ML DISP.SYRIN SUBCUT SCH (08:48)
--- NOTE | 2016-07-08 08:57 | Physician Advisory Note ---
Physician Advisor ProgressNote .: Pursuant to the plan for [facility], I have reviewed the medical record for this patient. Physician Advisor Statement: Fantastic documentation of how different pt was from baseline at time of adm & on subsequent days so far, which makes obvious to the reviewer why she continues to need to be in hospital. If possible, please document likely underlying disease process producing " Anemia of Chronic Disease" [ CA, CKD stage __, hypothyroidism of ___ type; &/or if there is nutritional Fe/B12/folate deficiency, ...]. Thanks! CK
[2016-07-08] MEDS ORDERED: ERGOCALCIFEROL (VITAMIN D2) 50000 UNIT (1.25 MG) CAPSULE PO SCH ×2 (09:00→10:00)
[2016-07-08] MEDS: CALCIUM CARBONATE 500 MG TABLET PO SCH ×2 (10:38→17:57)
[2016-07-08] MEDS: MONTELUKAST SODIUM 10 MG TABLET PO SCH (10:38)
[2016-07-08] MEDS: ASPIRIN 81 MG TABLET, ENT COATED PO SCH (10:38)
[2016-07-08] MEDS: MULTIVITAMIN TABLET PO SCH (10:38)
[2016-07-08] MEDS: DILTIAZEM HCL 240 MG CAPSULE.CR PO SCH (10:39)
[2016-07-08] MEDS: TIOTROPIUM BROMIDE DPI 5 CAP/KIT (18 MCG/CAP) IH SCH (10:42)
[2016-07-08] MEDS: FLUTICASONE NASAL SPRAY 50 MCG/SPRY 120 SPRAY/16 GM NASL SCH (10:43)
[2016-07-08] MEDS: CYCLOSPORINE 0.05% OPH EMULSIO 0.4 ML DROPERETTE OU SCH ×2 (10:43→21:11)
[2016-07-08] MEDS: IPRATROPIUM/ALBUTEROL 0.5-2.5 MG/3 ML AMPUL NEB PRN ×2 (14:20→19:49)
--- NOTE | 2016-07-08 15:57 | PDOC PROGRESS REPORT ---
Subjective Progress Note for:: 07/08/16 Subjective:: Patient has been able to remain on supplemental oxygen via nasal canula. Tolerated BiPAP usage over night. No chest pain. No fever or chills. No abdominal pain, nausea or vomiting. P.O intake remain a challenge. Physical Exam Vital Signs: Temp Pulse Resp BP Pulse Ox 98.3 F 96 22 H 133/74 H 100 07/08/16 11:38 07/08/16 14:20 07/08/16 14:20 07/08/16 11:38 07/08/16 11:38 Intake & Output 07/07/16 07/08/16 07/09/16 06:59 06:59 06:59 Intake Total 815 2665 355 Output Total 0 1450 Balance 815 1215 355 Weight 48 kg 49.7 kg Physical Exam: General appearance: PRESENT: no acute distress, mild distress - with lip breathing, thin Head exam: PRESENT: atraumatic, normocephalic Eye exam: PRESENT: conjunctiva pink, EOMI, PERRLA. ABSENT: scleral icterus Respiratory exam: PRESENT: clear to auscultation emerita, decreased breath sounds, rhonchi - minimal with end expiratory phase Cardiovascular exam: PRESENT: RRR. ABSENT: diastolic murmur, rubs, systolic murmur Vascular exam: PRESENT: normal capillary refill GI/Abdominal exam: PRESENT: normal bowel sounds, soft. ABSENT: distended, guarding, mass, organomegaly, rebound, tenderness Musculoskeletal exam: PRESENT: deformity - related to multiple joints involvement with arthritis Neurological exam: PRESENT: alert, awake, CN II-XII grossly intact, motor sensory deficit Psychiatric exam: PRESENT: anxious Skin exam: PRESENT: dry, intact, warm. ABSENT: cyanosis, rash Results Laboratory Results: 07/07/16 04:30 07/07/16 04:30 Impressions: Chest X-Ray 07/06/16 11:40 IMPRESSION: COPD. BASILAR ATELECTASIS/ SCARRING. NO DEFINITE ACUTE FINDINGS. Assessment & Plan - Diagnosis (1) Acute on chronic respiratory failure with hypoxemia Is this a current diagnosis for this admission?: YesPlan: Continue current mediation management. I will decrease IV Solu-Medrol to 80 mg [id number] with intent to taper off gradually. (2) Anxiety, generalized Is this a current diagnosis for this admission?: YesPlan: Maintain on low dose Alprazolam usage on prn basis. (3) Chronic obstructive pulmonary disease with (acute) exacerbation Is this a current diagnosis for this admission?: YesPlan: Continue current medication management. We will continue efforts at tapering off systemic steroid therapy. (4) HTN (hypertension) Qualifiers: Hypertension type: essential hypertension Qualified Code(s): I10 - Essential (primary) hypertension Is this a current diagnosis for this admission?: YesPlan: See attending physician order. Maintain on current medication management. (5) History of malignant neoplasm of left breast Is this a current diagnosis for this admission?: YesPlan: See attending physician order. (6) Hypoxemia requiring supplemental oxygen Is this a current diagnosis for this admission?: YesPlan: See attending physician order. Hopefully this will improve with resolution of her acute respiratory decompensation. (7) Chronic disease anemia Is this a current diagnosis for this admission?: YesPlan: See attending physician order. Patient is currently on outpatient iron infusion therapy at [facility] under directive of Dr Warner. Her anemia of chronic disease may be multi-factorial including prior breast cancer s/p chemotherapy, marrow suppression, and malabsorptive problem related to adult failure to thrive. - Time Time Spent with patient: 25-34 minutes Medications reviewed and adjusted accordingly: Yes Anticipated discharge: Home with Homehealth Within: Other - Inpatient Certification Based on my medical assessment, after consideration of the patient's comorbidities, presenting symptoms, or acuity I expect that the services needed warrant INPATIENT care.: Yes I certify that my determination is in accordance with my understanding of Medicare's requirements for reasonable and necessary INPATIENT services [42 CFR 412.3e].: Yes Medical Necessity: Need Close Monitoring Due to Risk of Patient Decompensation, Need For IV Fluids, Need For Continuous Telemetry Monitoring, Need for Nebulizer Therapy and Monitoring of Response, Need for IV Antibiotics, Risk of Complication if Not Cared For in Hospital Post Hospital Care: D/C Shuttle Car Operator Documentation - Plan Summary Plan Summary: See attending physician orders.
[2016-07-08] MEDS: ALPRAZOLAM 0.25 MG TABLET PO PRN (21:12)
[2016-07-08] MEDS: LEVOFLOXACIN 250 MG/D5W RTU 250 MG/50 ML RTUPB IV SCH (21:14)
[2016-07-09] MEDS: LANSOPRAZOLE 30 MG TAB.RAP.DR PO SCH (06:36)
[2016-07-09] MEDS: METHYLPREDNISOLONE INJ 125 MG/2 ML SDV IV SCH ×3 (06:36→22:13)
[2016-07-09] MEDS: AZTREONAM 1 GM in DEXTROSE 5%-WATER 100 ML IV SCH ×3 (06:37→22:14)
--- NOTE | 2016-07-09 08:10 | PDOC PROGRESS REPORT ---
Subjective Subjective:: Patient reported persistent constipation. Refused Miralax yesterday but willing to take today. Remain on BiPAP support and supplemental oxygen via nasal canula. No chest pain. No fever or chills. No abdominal pain, nausea or vomiting. P.O intake improving. Physical Exam Vital Signs: Temp Pulse Resp BP Pulse Ox 97.5 F 81 18 130/80 H 100 07/09/16 07:22 07/09/16 07:22 07/09/16 07:22 07/09/16 07:22 07/09/16 07:22 Intake & Output 07/08/16 07/09/16 07/10/16 06:59 06:59 06:59 Intake Total 2665 2494 Output Total 1450 300 Balance 1215 2194 Weight 49.7 kg Physical Exam: General appearance: PRESENT: no acute distress, mild distress - with lip breathing, thin Head exam: PRESENT: atraumatic, normocephalic Eye exam: PRESENT: conjunctiva pink, EOMI, PERRLA. ABSENT: scleral icterus Respiratory exam: PRESENT: clear to auscultation emerita, decreased breath sounds, rhonchi - minimal with end expiratory phase Cardiovascular exam: PRESENT: RRR. ABSENT: diastolic murmur, rubs, systolic murmur Vascular exam: PRESENT: normal capillary refill GI/Abdominal exam: PRESENT: normal bowel sounds, soft. ABSENT: distended, guarding, mass, organomegaly, rebound, tenderness Musculoskeletal exam: PRESENT: deformity - related to multiple joints involvement with arthritis Neurological exam: PRESENT: alert, awake, CN II-XII grossly intact, motor sensory deficit Psychiatric exam: PRESENT: anxious Skin exam: PRESENT: dry, intact, warm. ABSENT: cyanosis, rash Results Laboratory Results: 07/07/16 04:30 07/07/16 04:30 Impressions: Chest X-Ray 07/06/16 11:40 IMPRESSION: COPD. BASILAR ATELECTASIS/ SCARRING. NO DEFINITE ACUTE FINDINGS. Assessment & Plan - Diagnosis (1) Acute on chronic respiratory failure with hypoxemia Is this a current diagnosis for this admission?: YesPlan: Continue current mediation management. I will decrease IV Solu-Medrol to 60 mg [id number] with intent to taper off gradually. (2) Anxiety, generalized Is this a current diagnosis for this admission?: YesPlan: Maintain on low dose Alprazolam usage on prn basis. (3) Chronic obstructive pulmonary disease with (acute) exacerbation Is this a current diagnosis for this admission?: YesPlan: Continue current medication management. We will continue efforts at tapering off systemic steroid therapy. (4) HTN (hypertension) Qualifiers: Hypertension type: essential hypertension Qualified Code(s): I10 - Essential (primary) hypertension Is this a current diagnosis for this admission?: YesPlan: See attending physician order. Maintain on current medication management. (5) History of malignant neoplasm of left breast Is this a current diagnosis for this admission?: YesPlan: See attending physician order. (6) Hypoxemia requiring supplemental oxygen Is this a current diagnosis for this admission?: YesPlan: Improved at rest. See attending physician order. (7) Chronic disease anemia Is this a current diagnosis for this admission?: YesPlan: See attending physician order. Monitor Hemoglobin level. (8) Constipation Qualifiers: Constipation type: unspecified constipation type Qualified Code(s): K59.00 - Constipation, unspecified Is this a current diagnosis for this admission?: YesPlan: Emphasized medication compliance and adequate hydration. Follow up on response to Colace and Miralax usage. - Time Time Spent with patient: 25-34 minutes Medications reviewed and adjusted accordingly: Yes Anticipated discharge: Home with Homehealth Within: Other - Inpatient Certification Medical Necessity: Need Close Monitoring Due to Risk of Patient Decompensation, Need For IV Fluids, Need For Continuous Telemetry Monitoring, Need for Nebulizer Therapy and Monitoring of Response, Need for IV Antibiotics, Risk of Complication if Not Cared For in Hospital Post Hospital Care: D/C Central Office Equipment Engineer Documentation - Plan Summary Plan Summary: See attending physician orders.
[2016-07-09] MEDS: POLYETHYLENE GLYCOL 3350 POWDER 17 GM/1 PACKET PO SCH (10:22)
[2016-07-09] MEDS: DOCUSATE SODIUM 100 MG CAPSULE PO SCH (10:23)
[2016-07-09] MEDS: CALCIUM CARBONATE 500 MG TABLET PO SCH ×2 (10:23→17:56)
[2016-07-09] MEDS: ASPIRIN 81 MG TABLET, ENT COATED PO SCH (10:23)
[2016-07-09] MEDS: MULTIVITAMIN TABLET PO SCH (10:23)
[2016-07-09] MEDS: MONTELUKAST SODIUM 10 MG TABLET PO SCH (10:23)
[2016-07-09] MEDS: DILTIAZEM HCL 240 MG CAPSULE.CR PO SCH (10:24)
[2016-07-09] MEDS: CYCLOSPORINE 0.05% OPH EMULSIO 0.4 ML DROPERETTE OU SCH ×2 (10:25→22:13)
[2016-07-09] MEDS: TIOTROPIUM BROMIDE DPI 5 CAP/KIT (18 MCG/CAP) IH SCH (10:25)
[2016-07-09] MEDS: ENOXAPARIN SODIUM INJ 30 MG/0.3 ML DISP.SYRIN SUBCUT SCH (10:26)
[2016-07-09] MEDS: FLUTICASONE NASAL SPRAY 50 MCG/SPRY 120 SPRAY/16 GM NASL SCH (10:26)
[2016-07-09] MEDS: ALPRAZOLAM 0.25 MG TABLET PO PRN (22:13)
[2016-07-09] MEDS: LEVOFLOXACIN 250 MG/D5W RTU 250 MG/50 ML RTUPB IV SCH (22:14)
[2016-07-10 05:26] LABS: HEMATOCRIT 22.6 % (36.0-47.0); HGB HCT DIFFERENCE 0.5; MEAN CORPUSCULAR HEMOGLOBIN 27.5 pg (27.0-33.4); MEAN CORPUSCULAR HGB CONC 34.1 g/dL (32.0-36.0); MEAN CORPUSCULAR VOLUME 81 fl (80-97); RED CELL DISTRIBUTION WIDTH 23.2 % (11.5-14.0); WHITE BLOOD COUNT 6.4 10^3/uL (4.0-10.5)
[2016-07-10 05:32] LABS: HEMOGLOBIN 7.7 g/dL (12.0-15.5)
[2016-07-10 05:52] LABS: BASOPHILS % (MANUAL) 0 % (0-2); EOSINOPHILS % (MANUAL) 0 % (0-6); LYMPHOCYTES % (MANUAL) 1 % (13-45); TOTAL CELLS COUNTED 100
[2016-07-10 05:55] LABS: ANISOCYTOSIS 3+; HYPOCHROMASIA 2+; POIKILOCYTOSIS 1+; POLYCHROMASIA SLIGHT; STOMATOCYTES SLIGHT; TARGET CELLS 1+
[2016-07-10] MEDS: LANSOPRAZOLE 30 MG TAB.RAP.DR PO SCH (06:33)
[2016-07-10] MEDS: AZTREONAM 1 GM in DEXTROSE 5%-WATER 100 ML IV SCH ×3 (06:34→21:15)
[2016-07-10] MEDS: METHYLPREDNISOLONE INJ 125 MG/2 ML SDV IV SCH ×2 (06:34→14:50)
[2016-07-10] MEDS: ASPIRIN 81 MG TABLET, ENT COATED PO SCH (11:17)
[2016-07-10] MEDS: MULTIVITAMIN TABLET PO SCH (11:17)
[2016-07-10] MEDS: DILTIAZEM HCL 240 MG CAPSULE.CR PO SCH (11:18)
[2016-07-10] MEDS: CALCIUM CARBONATE 500 MG TABLET PO SCH ×2 (11:19→17:33)
[2016-07-10] MEDS: MONTELUKAST SODIUM 10 MG TABLET PO SCH (11:19)
[2016-07-10] MEDS: FLUTICASONE NASAL SPRAY 50 MCG/SPRY 120 SPRAY/16 GM NASL SCH (11:36)
[2016-07-10] MEDS: CYCLOSPORINE 0.05% OPH EMULSIO 0.4 ML DROPERETTE OU SCH ×2 (11:36→21:21)
[2016-07-10] MEDS: TIOTROPIUM BROMIDE DPI 5 CAP/KIT (18 MCG/CAP) IH SCH (11:37)
[2016-07-10] MEDS: DOCUSATE SODIUM 100 MG CAPSULE PO SCH (11:38)
[2016-07-10] MEDS: POLYETHYLENE GLYCOL 3350 POWDER 17 GM/1 PACKET PO SCH (11:38)
[2016-07-10] MEDS: IPRATROPIUM/ALBUTEROL 0.5-2.5 MG/3 ML AMPUL NEB PRN (13:43)
--- NOTE | 2016-07-10 15:41 | PDOC PROGRESS REPORT ---
Subjective Progress Note for:: 07/10/16 Subjective:: She was seen by the bedside, she had transfusion with packed red blood cells today she continues to do well Physical Exam Vital Signs: Temp Pulse Resp BP Pulse Ox 98.6 F 89 20 126/56 H 100 07/10/16 14:01 07/10/16 14:01 07/10/16 14:01 07/10/16 14:01 07/10/16 14:01 Intake & Output 07/09/16 07/10/16 07/11/16 06:59 06:59 06:59 Intake Total 2494 1154 567 Output Total 300 Balance 2194 1154 567 General appearance: PRESENT: no acute distress Eye exam: PRESENT: PERRLA Respiratory exam: PRESENT: decreased breath sounds Cardiovascular exam: PRESENT: +S1, +S2 GI/Abdominal exam: PRESENT: soft Neurological exam: PRESENT: alert Results Laboratory Results: 07/10/16 04:45 07/07/16 04:30 07/10/16 07/10/16 07/10/16 04:45 04:45 06:03 WBC 6.4 RBC 2.80 L Hgb 7.7 L Hct 22.6 L MCV 81 MCH 27.5 MCHC 34.1 RDW 23.2 H Plt Count 329 Seg Neutrophils % Not Reportable Lymphocytes % Not Reportable Monocytes % Not Reportable Eosinophils % Not Reportable Basophils % Not Reportable Absolute Neutrophils Not Reportable Absolute Lymphocytes Not Reportable Absolute Monocytes Not Reportable Absolute Eosinophils Not Reportable Absolute Basophils Not Reportable Iron < 10.1 L Stool Occult Blood Blood Type O POSITIVE Antibody Screen NEGATIVE 07/10/16 08:27 WBC RBC Hgb Hct MCV MCH MCHC RDW Plt Count Seg Neutrophils % Lymphocytes % Monocytes % Eosinophils % Basophils % Absolute Neutrophils Absolute Lymphocytes Absolute Monocytes Absolute Eosinophils Absolute Basophils Iron Stool Occult Blood POSITIVE Blood Type Antibody Screen Impressions: Chest X-Ray 07/06/16 11:40 IMPRESSION: COPD. BASILAR ATELECTASIS/ SCARRING. NO DEFINITE ACUTE FINDINGS. Assessment & Plan - Diagnosis (2) Hypoxemia requiring supplemental oxygen Is this a current diagnosis for this admission?: Yes (3) Acute on chronic respiratory failure with hypoxemia Is this a current diagnosis for this admission?: Yes (4) Anemia Qualifiers: Anemia type: unspecified type Qualified Code(s): D64.9 - Anemia, unspecified Is this a current diagnosis for this admission?: Yes (5) Anxiety, generalized Is this a current diagnosis for this admission?: Yes (6) Chronic obstructive pulmonary disease with (acute) exacerbation Is this a current diagnosis for this admission?: Yes (7) Constipation Qualifiers: Constipation type: unspecified constipation type Qualified Code(s): K59.00 - Constipation, unspecified Is this a current diagnosis for this admission?: Yes (8) Dyspnea Qualifiers: Dyspnea type: dyspnea on exertion Qualified Code(s): R06.09 - Other forms of dyspnea (9) HTN (hypertension) Qualifiers: Hypertension type: essential hypertension Qualified Code(s): I10 - Essential (primary) hypertension Is this a current diagnosis for this admission?: Yes (10) History of malignant neoplasm of left breast Is this a current diagnosis for this admission?: Yes - Plan Summary Plan Summary: She will continue present treatment regimen
[2016-07-10] MEDS: ALPRAZOLAM 0.25 MG TABLET PO PRN (21:15)
[2016-07-10] MEDS: LEVOFLOXACIN 250 MG/D5W RTU 250 MG/50 ML RTUPB IV SCH (21:20)
[2016-07-10 21:50] LABS: HEMATOCRIT 26.8 % (36.0-47.0); HEMOGLOBIN 8.9 g/dL (12.0-15.5); HGB HCT DIFFERENCE -0.1; MEAN CORPUSCULAR HEMOGLOBIN 27.3 pg (27.0-33.4); MEAN CORPUSCULAR HGB CONC 33.3 g/dL (32.0-36.0); MEAN CORPUSCULAR VOLUME 82 fl (80-97); RED BLOOD COUNT 3.26 10^6/uL (3.72-5.28); WHITE BLOOD COUNT 8.9 10^3/uL (4.0-10.5)
[2016-07-10 22:08] LABS: BASOPHILS % (MANUAL) 0 % (0-2); EOSINOPHILS % (MANUAL) 0 % (0-6); LYMPHOCYTES % (MANUAL) 2 % (13-45); TOTAL CELLS COUNTED 100
[2016-07-10 22:10] LABS: ANISOCYTOSIS 2+; POLYCHROMASIA SLIGHT; TARGET CELLS SLIGHT; TOXIC GRANULATION SLIGHT
[2016-07-11] MEDS: LANSOPRAZOLE 30 MG TAB.RAP.DR PO SCH (06:09)
[2016-07-11] MEDS: METHYLPREDNISOLONE INJ 125 MG/2 ML SDV IV SCH ×2 (06:10→23:10)
[2016-07-11] MEDS: AZTREONAM 1 GM in DEXTROSE 5%-WATER 100 ML IV SCH ×3 (06:11→23:11)
[2016-07-11] MEDS: MULTIVITAMIN TABLET PO SCH (08:55)
[2016-07-11] MEDS: MONTELUKAST SODIUM 10 MG TABLET PO SCH (08:55)
[2016-07-11] MEDS: ASPIRIN 81 MG TABLET, ENT COATED PO SCH (08:56)
[2016-07-11] MEDS: DILTIAZEM HCL 240 MG CAPSULE.CR PO SCH (08:56)
[2016-07-11] MEDS: CALCIUM CARBONATE 500 MG TABLET PO SCH ×2 (08:56→17:21)
[2016-07-11] MEDS: CYCLOSPORINE 0.05% OPH EMULSIO 0.4 ML DROPERETTE OU SCH ×2 (08:57→23:11)
[2016-07-11] MEDS: TIOTROPIUM BROMIDE DPI 5 CAP/KIT (18 MCG/CAP) IH SCH (08:57)
[2016-07-11] MEDS: FLUTICASONE NASAL SPRAY 50 MCG/SPRY 120 SPRAY/16 GM NASL SCH (08:58)
[2016-07-11] MEDS: DOCUSATE SODIUM 100 MG CAPSULE PO SCH (09:02)
[2016-07-11] MEDS: POLYETHYLENE GLYCOL 3350 POWDER 17 GM/1 PACKET PO SCH (09:02)
[2016-07-11] MEDS: ENOXAPARIN SODIUM INJ 30 MG/0.3 ML DISP.SYRIN SUBCUT SCH (09:02)
[2016-07-11] MEDS: IPRATROPIUM/ALBUTEROL 0.5-2.5 MG/3 ML AMPUL NEB PRN (09:26)
--- NOTE | 2016-07-11 16:17 | PDOC PROGRESS REPORT ---
Subjective Progress Note for:: 07/11/16 Subjective:: Patient was seen by the bedside, she is stable we will reduce the Solu-Medrol dose from 60 mg 30 mg Physical Exam Vital Signs: Temp Pulse Resp BP Pulse Ox 98.2 F 107 H 18 131/74 H 95 07/11/16 11:55 07/11/16 11:55 07/11/16 11:55 07/11/16 11:55 07/11/16 11:55 Intake & Output 07/10/16 07/11/16 07/12/16 06:59 06:59 06:59 Intake Total 1154 1491 480 Output Total 900 Balance 1154 591 480 General appearance: PRESENT: no acute distress Eye exam: PRESENT: PERRLA Respiratory exam: PRESENT: decreased breath sounds Cardiovascular exam: PRESENT: +S1, +S2 GI/Abdominal exam: PRESENT: soft Results Laboratory Results: 07/10/16 21:25 07/07/16 04:30 07/10/16 07/10/16 06:03 21:25 WBC 8.9 RBC 3.26 L Hgb 8.9 L Hct 26.8 L MCV 82 MCH 27.3 MCHC 33.3 RDW 21.0 H Plt Count 260 Seg Neutrophils % Not Reportable Lymphocytes % Not Reportable Monocytes % Not Reportable Eosinophils % Not Reportable Basophils % Not Reportable Absolute Neutrophils Not Reportable Absolute Lymphocytes Not Reportable Absolute Monocytes Not Reportable Absolute Eosinophils Not Reportable Absolute Basophils Not Reportable Blood Type O POSITIVE Antibody Screen NEGATIVE Impressions: Chest X-Ray 07/06/16 11:40 IMPRESSION: COPD. BASILAR ATELECTASIS/ SCARRING. NO DEFINITE ACUTE FINDINGS. Assessment & Plan - Diagnosis (1) Chronic obstructive pulmonary disease with acute exacerbation Is this a current diagnosis for this admission?: Yes (2) Hypoxemia requiring supplemental oxygen Is this a current diagnosis for this admission?: Yes (3) Acute on chronic respiratory failure with hypoxemia Is this a current diagnosis for this admission?: Yes (4) Anemia Qualifiers: Anemia type: unspecified type Qualified Code(s): D64.9 - Anemia, unspecified Is this a current diagnosis for this admission?: Yes (5) Anxiety, generalized Is this a current diagnosis for this admission?: Yes (6) Chronic obstructive pulmonary disease with (acute) exacerbation Is this a current diagnosis for this admission?: Yes (7) Constipation Qualifiers: Constipation type: unspecified constipation type Qualified Code(s): K59.00 - Constipation, unspecified Is this a current diagnosis for this admission?: Yes (8) Dyspnea Qualifiers: Dyspnea type: dyspnea on exertion Qualified Code(s): R06.09 - Other forms of dyspnea (9) HTN (hypertension) Qualifiers: Hypertension type: essential hypertension Qualified Code(s): I10 - Essential (primary) hypertension Is this a current diagnosis for this admission?: Yes (10) History of malignant neoplasm of left breast Is this a current diagnosis for this admission?: Yes
[2016-07-11] MEDS: LEVOFLOXACIN 250 MG/D5W RTU 250 MG/50 ML RTUPB IV SCH (23:10)
[2016-07-11] MEDS: ALPRAZOLAM 0.25 MG TABLET PO PRN (23:10)
[2016-07-12] MEDS: METHYLPREDNISOLONE INJ 125 MG/2 ML SDV IV SCH (06:51)
[2016-07-12] MEDS: AZTREONAM 1 GM in DEXTROSE 5%-WATER 100 ML IV SCH (06:52)
[2016-07-12] MEDS: LANSOPRAZOLE 30 MG TAB.RAP.DR PO SCH (06:52)
[2016-07-12] MEDS ORDERED: LEVOFLOXACIN 500 MG TABLET PO SCH (10:00)
[2016-07-12] MEDS: CYCLOSPORINE 0.05% OPH EMULSIO 0.4 ML DROPERETTE OU SCH ×2 (10:18→22:50)
[2016-07-12] MEDS: FLUTICASONE NASAL SPRAY 50 MCG/SPRY 120 SPRAY/16 GM NASL SCH (10:19)
[2016-07-12] MEDS: CALCIUM CARBONATE 500 MG TABLET PO SCH ×2 (10:22→17:44)
[2016-07-12] MEDS: MULTIVITAMIN TABLET PO SCH (10:22)
[2016-07-12] MEDS: ASPIRIN 81 MG TABLET, ENT COATED PO SCH (10:22)
[2016-07-12] MEDS: DILTIAZEM HCL 240 MG CAPSULE.CR PO SCH (10:23)
[2016-07-12] MEDS: PREDNISONE 20 MG TABLET PO SCH (10:23)
[2016-07-12] MEDS: MONTELUKAST SODIUM 10 MG TABLET PO SCH (10:29)
[2016-07-12] MEDS: POLYETHYLENE GLYCOL 3350 POWDER 17 GM/1 PACKET PO SCH (10:30)
[2016-07-12] MEDS: DOCUSATE SODIUM 100 MG CAPSULE PO SCH (10:30)
[2016-07-12] MEDS: IPRATROPIUM/ALBUTEROL 0.5-2.5 MG/3 ML AMPUL NEB PRN (10:38)
[2016-07-12] MEDS: TIOTROPIUM BROMIDE DPI 5 CAP/KIT (18 MCG/CAP) IH SCH (13:38)
[2016-07-12] MEDS ORDERED: AZTREONAM 1 GM in DEXTROSE 5%-WATER 50 ML IV SCH (14:00)
--- NOTE | 2016-07-12 19:08 | PDOC PROGRESS REPORT ---
Subjective Progress Note for:: 07/12/16 Subjective:: Remain on supplemental oxygen via nasal canula. No chest pain. No fever or chills. No abdominal pain, nausea or vomiting. P.O intake improving. Daughter at bedside. She recently sold her house with less anxiousness on her mind presently. Daughter reported some degree of difficulty with sleeping. Physical Exam Vital Signs: Temp Pulse Resp BP Pulse Ox 97.8 F 91 18 146/70 H 100 07/12/16 07:32 07/12/16 07:32 07/12/16 07:32 07/12/16 07:32 07/12/16 07:32 Intake & Output 07/11/16 07/12/16 07/13/16 06:59 06:59 06:59 Intake Total 1491 2222 Output Total 900 300 Balance 591 1922 Physical Exam: General appearance: PRESENT: no acute distress, mild distress - with lip breathing, thin Head exam: PRESENT: atraumatic, normocephalic Eye exam: PRESENT: conjunctiva pink, EOMI, PERRLA. ABSENT: scleral icterus Respiratory exam: PRESENT: clear to auscultation emerita, decreased breath sounds, rhonchi - minimal with end expiratory phase Cardiovascular exam: PRESENT: RRR. ABSENT: diastolic murmur, rubs, systolic murmur Vascular exam: PRESENT: normal capillary refill GI/Abdominal exam: PRESENT: normal bowel sounds, soft. ABSENT: distended, guarding, mass, organomegaly, rebound, tenderness Musculoskeletal exam: PRESENT: deformity - related to multiple joints involvement with arthritis Neurological exam: PRESENT: alert, awake, CN II-XII grossly intact, motor sensory deficit Psychiatric exam: PRESENT: anxious Skin exam: PRESENT: dry, intact, warm. ABSENT: cyanosis, rash Results Laboratory Results: 07/10/16 21:25 07/07/16 04:30 Impressions: Chest X-Ray 07/06/16 11:40 IMPRESSION: COPD. BASILAR ATELECTASIS/ SCARRING. NO DEFINITE ACUTE FINDINGS. Assessment & Plan - Diagnosis (1) Acute on chronic respiratory failure with hypoxemia Is this a current diagnosis for this admission?: Yes (2) Anxiety, generalized Is this a current diagnosis for this admission?: Yes (3) Chronic obstructive pulmonary disease with (acute) exacerbation Is this a current diagnosis for this admission?: Yes (4) HTN (hypertension) Qualifiers: Hypertension type: essential hypertension Qualified Code(s): I10 - Essential (primary) hypertension Is this a current diagnosis for this admission?: Yes (5) History of malignant neoplasm of left breast Is this a current diagnosis for this admission?: Yes (6) Hypoxemia requiring supplemental oxygen Is this a current diagnosis for this admission?: Yes (7) Chronic disease anemia Is this a current diagnosis for this admission?: Yes (8) Constipation Qualifiers: Constipation type: unspecified constipation type Qualified Code(s): K59.00 - Constipation, unspecified Is this a current diagnosis for this admission?: Yes - Time Time Spent with patient: 25-34 minutes Medications reviewed and adjusted accordingly: Yes Anticipated discharge: Home with Homehealth - Inpatient Certification Medical Necessity: Need Close Monitoring Due to Risk of Patient Decompensation, Need For IV Fluids, Need For Continuous Telemetry Monitoring, Need for Nebulizer Therapy and Monitoring of Response, Need for IV Antibiotics, Risk of Complication if Not Cared For in Hospital Post 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 I will D/C IV Solu Medrol. Start on Levofloxacin 250 mg po daily. Start on oral prednisone tapering dosage regimen. If patient continue to show clinical improvement consider discharge home tomorrow.
[2016-07-12 19:43] LABS: HEMOGLOBIN 10.9 g/dL (12.0-15.5); HGB HCT DIFFERENCE -0.3; MEAN CORPUSCULAR HEMOGLOBIN 27.1 pg (27.0-33.4); MEAN CORPUSCULAR HGB CONC 33.2 g/dL (32.0-36.0); MEAN CORPUSCULAR VOLUME 82 fl (80-97); RED BLOOD COUNT 4.04 10^6/uL (3.72-5.28); WHITE BLOOD COUNT 9.9 10^3/uL (4.0-10.5)
[2016-07-12 20:06] LABS: BASOPHILS % (MANUAL) 0 % (0-2); EOSINOPHILS % (MANUAL) 0 % (0-6); LYMPHOCYTES % (MANUAL) 5 % (13-45); NUCLEATED RED BLOOD CELLS 1 /100 WBC (0); TOTAL CELLS COUNTED 100
[2016-07-12 20:12] LABS: ANISOCYTOSIS 3+; OVALOCYTES SLIGHT; POIKILOCYTOSIS SLIGHT; SCHISTOCYTES SLIGHT; TARGET CELLS SLIGHT
[2016-07-12 20:13] LABS: POLYCHROMASIA SLIGHT
[2016-07-12] MEDS: ALPRAZOLAM 0.25 MG TABLET PO PRN (22:50)
[2016-07-13] MEDS: LANSOPRAZOLE 30 MG TAB.RAP.DR PO SCH (05:38)
[2016-07-13] MEDS: DILTIAZEM HCL 240 MG CAPSULE.CR PO SCH (09:51)
[2016-07-13] MEDS: MULTIVITAMIN TABLET PO SCH (09:51)
[2016-07-13] MEDS: CALCIUM CARBONATE 500 MG TABLET PO SCH ×2 (09:51→17:21)
[2016-07-13] MEDS: PREDNISONE 20 MG TABLET PO SCH (09:52)
[2016-07-13] MEDS: ASPIRIN 81 MG TABLET, ENT COATED PO SCH (09:52)
[2016-07-13] MEDS: MONTELUKAST SODIUM 10 MG TABLET PO SCH (09:52)
[2016-07-13] MEDS: CYCLOSPORINE 0.05% OPH EMULSIO 0.4 ML DROPERETTE OU SCH ×2 (09:55→22:56)
[2016-07-13] MEDS: TIOTROPIUM BROMIDE DPI 5 CAP/KIT (18 MCG/CAP) IH SCH (09:56)
[2016-07-13] MEDS: DOCUSATE SODIUM 100 MG CAPSULE PO SCH (09:57)
[2016-07-13] MEDS: FLUTICASONE NASAL SPRAY 50 MCG/SPRY 120 SPRAY/16 GM NASL SCH (09:57)
[2016-07-13] MEDS: POLYETHYLENE GLYCOL 3350 POWDER 17 GM/1 PACKET PO SCH (09:57)
[2016-07-13] MEDS ORDERED: LEVOFLOXACIN 250 MG TABLET PO SCH (10:00)
[2016-07-13] MEDS ORDERED: ALPRAZOLAM 0.25 MG TABLET PO ONE (15:30)
--- NOTE | 2016-07-13 18:23 | PDOC PROGRESS REPORT ---
Subjective Progress Note for:: 07/13/16 Subjective:: Patient reported onset of explosive diarrhea since last clinical evaluation. She reported several episodes overnight. There is associated rectal bleeding that she related to her hemorrhoid. There is associated abdominal cramp pain. No nausea or vomiting. P.O intake improving. No fever or chills. No chest pain. Remain on supplemental oxygen via nasal canula. Physical Exam Vital Signs: Temp Pulse Resp BP Pulse Ox 98.1 F 87 19 122/51 L 92 07/13/16 15:53 07/13/16 15:53 07/13/16 15:53 07/13/16 15:53 07/13/16 15:53 Intake & Output 07/12/16 07/13/16 07/14/16 06:59 06:59 06:59 Intake Total 2222 857 225 Output Total 300 600 200 Balance 1922 257 25 Physical Exam: General appearance: PRESENT: no acute distress, mild distress - with lip breathing, thin Head exam: PRESENT: atraumatic, normocephalic Eye exam: PRESENT: conjunctiva pink, EOMI, PERRLA. ABSENT: scleral icterus Respiratory exam: PRESENT: clear to auscultation emerita, decreased breath sounds, rhonchi - minimal with end expiratory phase Cardiovascular exam: PRESENT: RRR. ABSENT: diastolic murmur, rubs, systolic murmur Vascular exam: PRESENT: normal capillary refill GI/Abdominal exam: PRESENT: normal bowel sounds, soft. ABSENT: distended, guarding, mass, organomegaly, rebound, tenderness Musculoskeletal exam: PRESENT: deformity - related to multiple joints involvement with arthritis Neurological exam: PRESENT: alert, awake, CN II-XII grossly intact, motor sensory deficit Psychiatric exam: PRESENT: anxious Skin exam: PRESENT: dry, intact, warm. ABSENT: cyanosis, rash Results Laboratory Results: 07/12/16 19:20 07/07/16 04:30 07/12/16 19:20 WBC 9.9 RBC 4.04 Hgb 10.9 L Hct 33.0 L MCV 82 MCH 27.1 MCHC 33.2 RDW 21.0 H Plt Count 347 Seg Neutrophils % Not Reportable Lymphocytes % Not Reportable Monocytes % Not Reportable Eosinophils % Not Reportable Basophils % Not Reportable Absolute Neutrophils Not Reportable Absolute Lymphocytes Not Reportable Absolute Monocytes Not Reportable Absolute Eosinophils Not Reportable Absolute Basophils Not Reportable Impressions: Chest X-Ray 07/06/16 11:40 IMPRESSION: COPD. BASILAR ATELECTASIS/ SCARRING. NO DEFINITE ACUTE FINDINGS. Assessment & Plan - Diagnosis (1) Acute on chronic respiratory failure with hypoxemia Is this a current diagnosis for this admission?: YesPlan: Continue current mediation management. I will continue efforts at tapering off oral Prednisone slowly. (2) Anxiety, generalized Is this a current diagnosis for this admission?: YesPlan: Maintain on low dose Alprazolam usage on prn basis. (3) Chronic obstructive pulmonary disease with (acute) exacerbation Is this a current diagnosis for this admission?: YesPlan: Continue current medication management. We will continue efforts at tapering off oral Prednisone therapy. (4) HTN (hypertension) Qualifiers: Hypertension type: essential hypertension Qualified Code(s): I10 - Essential (primary) hypertension Is this a current diagnosis for this admission?: YesPlan: See attending physician order. Maintain on current medication management. (5) History of malignant neoplasm of left breast Is this a current diagnosis for this admission?: Yes (6) Hypoxemia requiring supplemental oxygen Is this a current diagnosis for this admission?: YesPlan: Improved at rest. See attending physician order. (7) Chronic disease anemia Is this a current diagnosis for this admission?: YesPlan: See attending physician order. Monitor Hemoglobin level. (8) Constipation Qualifiers: Constipation type: unspecified constipation type Qualified Code(s): K59.00 - Constipation, unspecified Is this a current diagnosis for this admission?: Yes (9) Antibiotic-associated diarrhea Is this a current diagnosis for this admission?: NoPlan: Obtain stool C. difficile toxin titer. Consider discontinuation of oral Levofloxacin usage if C. difficile toxin is positive. I will differ her planned discharge for today in view of her new symptoms development. 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
[2016-07-13] MEDS: METRONIDAZOLE 500 MG TABLET PO SCH (22:55)
[2016-07-13] MEDS: ALPRAZOLAM 0.25 MG TABLET PO PRN (22:56)
[2016-07-14] MEDS: LANSOPRAZOLE 30 MG TAB.RAP.DR PO SCH (06:16)
[2016-07-14] MEDS: METRONIDAZOLE 500 MG TABLET PO SCH ×3 (06:16→21:37)
--- NOTE | 2016-07-14 08:24 | PDOC PROGRESS REPORT ---
Subjective Progress Note for:: 07/14/16 Subjective:: Patient reported some improvement in her diarrhea. No observed blood in stool content this morning. Abdominal pain improved. No fever or chills. No nausea or vomiting. P.O intake improving. No fever or chills. No chest pain. Remain on supplemental oxygen via nasal canula. Physical Exam Vital Signs: Temp Pulse Resp BP Pulse Ox 98.8 F 92 19 130/67 H 100 07/14/16 08:00 07/14/16 08:00 07/14/16 08:00 07/14/16 08:00 07/14/16 08:00 Intake & Output 07/13/16 07/14/16 07/15/16 06:59 06:59 06:59 Intake Total 857 250 Output Total 600 200 Balance 257 50 Physical Exam: General appearance: PRESENT: no acute distress, mild distress - with lip breathing, thin Head exam: PRESENT: atraumatic, normocephalic Eye exam: PRESENT: conjunctiva pink, EOMI, PERRLA. ABSENT: scleral icterus Respiratory exam: PRESENT: clear to auscultation emerita, decreased breath sounds, rhonchi - minimal with end expiratory phase Cardiovascular exam: PRESENT: RRR. ABSENT: diastolic murmur, rubs, systolic murmur Vascular exam: PRESENT: normal capillary refill GI/Abdominal exam: PRESENT: normal bowel sounds, soft. ABSENT: distended, guarding, mass, organomegaly, rebound, tenderness Musculoskeletal exam: PRESENT: deformity - related to multiple joints involvement with arthritis Neurological exam: PRESENT: alert, awake, CN II-XII grossly intact, motor sensory deficit Psychiatric exam: PRESENT: anxious Skin exam: PRESENT: dry, intact, warm. ABSENT: cyanosis, rash Results Laboratory Results: 07/12/16 19:20 07/07/16 04:30 Impressions: Chest X-Ray 07/06/16 11:40 IMPRESSION: COPD. BASILAR ATELECTASIS/ SCARRING. NO DEFINITE ACUTE FINDINGS. Assessment & Plan - Diagnosis (1) Acute on chronic respiratory failure with hypoxemia Is this a current diagnosis for this admission?: YesPlan: Continue current mediation management. I will continue efforts at tapering off oral Prednisone slowly. (2) Anxiety, generalized Is this a current diagnosis for this admission?: YesPlan: Maintain on low dose Alprazolam usage on prn basis. (3) Chronic obstructive pulmonary disease with (acute) exacerbation Is this a current diagnosis for this admission?: YesPlan: Continue current medication management. We will continue efforts at tapering off oral Prednisone therapy. (4) HTN (hypertension) Qualifiers: Hypertension type: essential hypertension Qualified Code(s): I10 - Essential (primary) hypertension Is this a current diagnosis for this admission?: YesPlan: See attending physician order. Maintain on current medication management. (5) History of malignant neoplasm of left breast Is this a current diagnosis for this admission?: YesPlan: See attending physician order. (6) Hypoxemia requiring supplemental oxygen Is this a current diagnosis for this admission?: YesPlan: Improved at rest. See attending physician order. (7) Chronic disease anemia Is this a current diagnosis for this admission?: YesPlan: See attending physician order. Monitor Hemoglobin level. I will repeat her CBC with differential to monitor her anemia and infectious status. (8) Constipation Qualifiers: Constipation type: unspecified constipation type Qualified Code(s): K59.00 - Constipation, unspecified Is this a current diagnosis for this admission?: Yes (9) Antibiotic-associated diarrhea Is this a current diagnosis for this admission?: NoPlan: Maintain on oral Metronidazole therapy. If diarrhea continue to improve consider discharge very soon. 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
[2016-07-14] MEDS: CALCIUM CARBONATE 500 MG TABLET PO SCH ×2 (09:06→17:06)
[2016-07-14] MEDS: MULTIVITAMIN TABLET PO SCH (09:06)
[2016-07-14] MEDS: PREDNISONE 10 MG TABLET PO SCH (09:07)
[2016-07-14] MEDS: ASPIRIN 81 MG TABLET, ENT COATED PO SCH (09:07)
[2016-07-14] MEDS: MONTELUKAST SODIUM 10 MG TABLET PO SCH (09:08)
[2016-07-14] MEDS: DILTIAZEM HCL 240 MG CAPSULE.CR PO SCH (09:11)
[2016-07-14] MEDS: FLUTICASONE NASAL SPRAY 50 MCG/SPRY 120 SPRAY/16 GM NASL SCH (09:15)
[2016-07-14] MEDS: TIOTROPIUM BROMIDE DPI 5 CAP/KIT (18 MCG/CAP) IH SCH (09:15)
[2016-07-14] MEDS: CYCLOSPORINE 0.05% OPH EMULSIO 0.4 ML DROPERETTE OU SCH ×2 (09:17→21:38)
[2016-07-14] MEDS: DOCUSATE SODIUM 100 MG CAPSULE PO SCH (09:19)
[2016-07-14] MEDS: POLYETHYLENE GLYCOL 3350 POWDER 17 GM/1 PACKET PO SCH (09:19)
[2016-07-14] MEDS: FLUTICASONE/SALMETEROL DISKUS 500-50 MCG/DOSE IH SCH ×2 (09:26→21:38)
[2016-07-14 09:50] LABS: HEMATOCRIT 31.5 % (36.0-47.0); HEMOGLOBIN 10.5 g/dL (12.0-15.5); MEAN CORPUSCULAR HEMOGLOBIN 27.3 pg (27.0-33.4); MEAN CORPUSCULAR HGB CONC 33.3 g/dL (32.0-36.0); MEAN CORPUSCULAR VOLUME 82 fl (80-97); RED BLOOD COUNT 3.85 10^6/uL (3.72-5.28); RED CELL DISTRIBUTION WIDTH 21.2 % (11.5-14.0); WHITE BLOOD COUNT 13.5 10^3/uL (4.0-10.5)
[2016-07-14 10:18] LABS: ANISOCYTOSIS 2+; BAND NEUTROPHILS % (MANUAL) 3 % (3-5); BASOPHILS % (MANUAL) 0 % (0-2); EOSINOPHILS % (MANUAL) 0 % (0-6); HYPOCHROMASIA 1+; LYMPHOCYTES % (MANUAL) 3 % (13-45); POLYCHROMASIA SLIGHT; TOTAL CELLS COUNTED 100
[2016-07-14] MEDS: IPRATROPIUM/ALBUTEROL 0.5-2.5 MG/3 ML AMPUL NEB PRN (10:18)
[2016-07-14] MEDS: ALPRAZOLAM 0.25 MG TABLET PO PRN (21:38)
[2016-07-15] MEDS: LANSOPRAZOLE 30 MG TAB.RAP.DR PO SCH (05:58)
[2016-07-15] MEDS: METRONIDAZOLE 500 MG TABLET PO SCH ×3 (05:59→23:13)
--- NOTE | 2016-07-15 08:24 | PDOC PROGRESS REPORT ---
Subjective Progress Note for:: 07/15/16 Subjective:: Patient's diarrhea frequency decreased since last clinical evaluation. There is cramp abdominal pain. No nausea or vomiting. P.O intake improving. No fever or chills. No chest pain. Remain on supplemental oxygen via nasal canula. Physical Exam Vital Signs: Temp Pulse Resp BP Pulse Ox 98.2 F 75 16 118/54 L 98 07/15/16 03:42 07/15/16 08:07 07/15/16 08:07 07/15/16 03:42 07/15/16 08:07 Intake & Output 07/14/16 07/15/16 07/16/16 06:59 06:59 06:59 Intake Total 250 745 Output Total 200 Balance 50 745 Physical Exam: General appearance: PRESENT: no acute distress, mild distress - with lip breathing, thin Head exam: PRESENT: atraumatic, normocephalic Eye exam: PRESENT: conjunctiva pink, EOMI, PERRLA. ABSENT: scleral icterus Respiratory exam: PRESENT: clear to auscultation emerita, decreased breath sounds, rhonchi - minimal with end expiratory phase Cardiovascular exam: PRESENT: RRR. ABSENT: diastolic murmur, rubs, systolic murmur Vascular exam: PRESENT: normal capillary refill GI/Abdominal exam: PRESENT: normal bowel sounds, soft. ABSENT: distended, guarding, mass, organomegaly, rebound, tenderness Musculoskeletal exam: PRESENT: deformity - related to multiple joints involvement with arthritis Neurological exam: PRESENT: alert, awake, CN II-XII grossly intact, motor sensory deficit Psychiatric exam: PRESENT: anxious Skin exam: PRESENT: dry, intact, warm. ABSENT: cyanosis, rash Results Laboratory Results: 07/14/16 09:10 07/07/16 04:30 07/14/16 09:10 WBC 13.5 H RBC 3.85 Hgb 10.5 L Hct 31.5 L MCV 82 MCH 27.3 MCHC 33.3 RDW 21.2 H Plt Count 268 Seg Neutrophils % Not Reportable Lymphocytes % Not Reportable Monocytes % Not Reportable Eosinophils % Not Reportable Basophils % Not Reportable Absolute Neutrophils Not Reportable Absolute Lymphocytes Not Reportable Absolute Monocytes Not Reportable Absolute Eosinophils Not Reportable Absolute Basophils Not Reportable Impressions: Chest X-Ray 07/06/16 11:40 IMPRESSION: COPD. BASILAR ATELECTASIS/ SCARRING. NO DEFINITE ACUTE FINDINGS. Assessment & Plan - Diagnosis (1) Acute on chronic respiratory failure with hypoxemia Is this a current diagnosis for this admission?: YesPlan: Continue current mediation management with gradual tapering off Prednisone therapy. (2) Anxiety, generalized Is this a current diagnosis for this admission?: YesPlan: Maintain on low dose Alprazolam usage on prn basis. (3) Chronic obstructive pulmonary disease with (acute) exacerbation Is this a current diagnosis for this admission?: YesPlan: Continue current medication management. We will continue efforts at tapering off oral Prednisone therapy. (4) HTN (hypertension) Qualifiers: Hypertension type: essential hypertension Qualified Code(s): I10 - Essential (primary) hypertension Is this a current diagnosis for this admission?: YesPlan: See attending physician order. Maintain on current medication management. (5) History of malignant neoplasm of left breast Is this a current diagnosis for this admission?: YesPlan: See attending physician order. (6) Hypoxemia requiring supplemental oxygen Is this a current diagnosis for this admission?: YesPlan: Improved at rest. See attending physician order. (7) Chronic disease anemia Is this a current diagnosis for this admission?: YesPlan: See attending physician order. Her anemia do have component of iron deficiency and she has been on outpatient iron infusion at [facility]. We will repeat CBC with diff for further evaluation. (8) Constipation Qualifiers: Constipation type: unspecified constipation type Qualified Code(s): K59.00 - Constipation, unspecified Is this a current diagnosis for this admission?: Yes (9) Antibiotic-associated diarrhea Is this a current diagnosis for this admission?: NoPlan: Maintain on oral Metronidazole therapy and monitor WBC trend. - Time Time Spent with patient: 25-34 minutes Medications reviewed and adjusted accordingly: Yes Anticipated discharge: Home with Homehealth - Inpatient Certification Based on my medical assessment, after consideration of the patient's comorbidities, presenting symptoms, or acuity I expect that the services needed warrant INPATIENT care.: Yes I certify that my determination is in accordance with my understanding of Medicare's requirements for reasonable and necessary INPATIENT services [42 CFR 412.3e].: Yes Medical Necessity: Need Close Monitoring Due to Risk of Patient Decompensation, Need For Continuous Telemetry Monitoring, Need for Nebulizer Therapy and Monitoring of Response, Risk of Complication if Not Cared For in Hospital Post Hospital Care: D/C Lapel Padder Blindstitch Documentation - Plan Summary Plan Summary: See attending physician orders.
[2016-07-15] MEDS: DOCUSATE SODIUM 100 MG CAPSULE PO SCH (09:56)
[2016-07-15] MEDS: POLYETHYLENE GLYCOL 3350 POWDER 17 GM/1 PACKET PO SCH (09:56)
[2016-07-15] MEDS: PREDNISONE 10 MG TABLET PO SCH (09:59)
[2016-07-15] MEDS: CALCIUM CARBONATE 500 MG TABLET PO SCH ×2 (09:59→17:05)
[2016-07-15] MEDS: MONTELUKAST SODIUM 10 MG TABLET PO SCH (09:59)
[2016-07-15] MEDS: ASPIRIN 81 MG TABLET, ENT COATED PO SCH (09:59)
[2016-07-15] MEDS: MULTIVITAMIN TABLET PO SCH (09:59)
[2016-07-15] MEDS: CYCLOSPORINE 0.05% OPH EMULSIO 0.4 ML DROPERETTE OU SCH ×2 (10:00→23:14)
[2016-07-15] MEDS: FLUTICASONE NASAL SPRAY 50 MCG/SPRY 120 SPRAY/16 GM NASL SCH (10:00)
[2016-07-15] MEDS: FLUTICASONE/SALMETEROL DISKUS 500-50 MCG/DOSE IH SCH ×2 (10:01→23:12)
[2016-07-15] MEDS: TIOTROPIUM BROMIDE DPI 5 CAP/KIT (18 MCG/CAP) IH SCH (10:01)
[2016-07-15] MEDS: DILTIAZEM HCL 240 MG CAPSULE.CR PO SCH (10:02)
[2016-07-15 11:51] LABS: HEMATOCRIT 28.6 % (36.0-47.0); HEMOGLOBIN 9.4 g/dL (12.0-15.5); HGB HCT DIFFERENCE -0.4; MEAN CORPUSCULAR HGB CONC 32.8 g/dL (32.0-36.0); MEAN CORPUSCULAR VOLUME 82 fl (80-97); RED BLOOD COUNT 3.47 10^6/uL (3.72-5.28); RED CELL DISTRIBUTION WIDTH 20.8 % (11.5-14.0); WHITE BLOOD COUNT 8.9 10^3/uL (4.0-10.5)
[2016-07-15 12:09] LABS: BLOOD UREA NITROGEN 20 mg/dL (7-20); CALCIUM 8.2 mg/dL (8.4-10.2); CHLORIDE 95 mmol/L (98-107); CREATININE RESULT 0.43 mg/dL (0.52-1.25); GLUCOSE 98 mg/dL (75-110); SODIUM 143.7 mmol/L (137-145)
[2016-07-15 12:26] LABS: ANISOCYTOSIS 2+; BASOPHILS % (MANUAL) 0 % (0-2); CARBON DIOXIDE 46 mmol/L (22-30); EOSINOPHILS % (MANUAL) 0 % (0-6); HYPOCHROMASIA SLIGHT; LYMPHOCYTES % (MANUAL) 5 % (13-45); POLYCHROMASIA SLIGHT; POTASSIUM 2.5 mmol/L (3.6-5.0); TOTAL CELLS COUNTED 100; TOXIC GRANULATION SLIGHT
[2016-07-15 12:27] LABS: ANION GAP 3 (5-19); OVALOCYTES 1+; POIKILOCYTOSIS 1+
[2016-07-15] MEDS: POTASSIUM CHLORIDE 20 MEQ/50 ML RTU IV SCH ×3 (14:11→18:41)
[2016-07-15 18:42] LABS: ARTERIAL BLOOD BASE EXCESS 13.6 mmol/L; ARTERIAL BLOOD O2 SATURATION 87.1 % (94-98)
[2016-07-15] MEDS: ALPRAZOLAM 0.25 MG TABLET PO PRN (23:23)
[2016-07-16] MEDS: LANSOPRAZOLE 30 MG TAB.RAP.DR PO SCH (05:59)
[2016-07-16] MEDS: METRONIDAZOLE 500 MG TABLET PO SCH ×2 (05:59→13:58)
[2016-07-16 07:17] LABS: BLOOD UREA NITROGEN 18 mg/dL (7-20); CALCIUM 8.2 mg/dL (8.4-10.2); CHLORIDE 96 mmol/L (98-107); CREATININE RESULT 0.44 mg/dL (0.52-1.25); GLUCOSE 72 mg/dL (75-110); POTASSIUM 3.2 mmol/L (3.6-5.0); SODIUM 142.5 mmol/L (137-145)
[2016-07-16 07:33] LABS: ANION GAP 6 (5-19)
[2016-07-16 07:35] LABS: CARBON DIOXIDE 41 mmol/L (22-30)
[2016-07-16] MEDS: POTASSIUM CHLORIDE 10 MEQ TABLET.SA PO SCH ×2 (08:52→12:57)
[2016-07-16] MEDS ORDERED: ACETAZOLAMIDE 500 MG CAPSULE.SA PO ONE (09:00)
[2016-07-16] MEDS ORDERED: PREDNISONE 5 MG TABLET PO SCH (10:00)
[2016-07-16] MEDS: MONTELUKAST SODIUM 10 MG TABLET PO SCH (11:17)
[2016-07-16] MEDS: DILTIAZEM HCL 240 MG CAPSULE.CR PO SCH (11:19)
[2016-07-16] MEDS: TIOTROPIUM BROMIDE DPI 5 CAP/KIT (18 MCG/CAP) IH SCH (11:19)
[2016-07-16] MEDS: MULTIVITAMIN TABLET PO SCH (11:21)
[2016-07-16] MEDS: ASPIRIN 81 MG TABLET, ENT COATED PO SCH (11:21)
[2016-07-16] MEDS: CALCIUM CARBONATE 500 MG TABLET PO SCH (11:21)
[2016-07-16] MEDS: FLUTICASONE NASAL SPRAY 50 MCG/SPRY 120 SPRAY/16 GM NASL SCH (11:24)
[2016-07-16] MEDS: FLUTICASONE/SALMETEROL DISKUS 500-50 MCG/DOSE IH SCH (11:24)
[2016-07-16] MEDS: CYCLOSPORINE 0.05% OPH EMULSIO 0.4 ML DROPERETTE OU SCH (11:25)
[2016-07-16] MEDS: POLYETHYLENE GLYCOL 3350 POWDER 17 GM/1 PACKET PO SCH (13:51)
[2016-07-16] MEDS: DOCUSATE SODIUM 100 MG CAPSULE PO SCH (13:51)
[2016-07-16 14:48] LABS: ANION GAP 7 (5-19); BLOOD UREA NITROGEN 14 mg/dL (7-20); CALCIUM 8.5 mg/dL (8.4-10.2); CARBON DIOXIDE 35 mmol/L (22-30); CHLORIDE 99 mmol/L (98-107); CREATININE RESULT 0.62 mg/dL (0.52-1.25); GLUCOSE 148 mg/dL (75-110); POTASSIUM 3.5 mmol/L (3.6-5.0); SODIUM 141.3 mmol/L (137-145)
--- NOTE | 2016-07-16 15:47 | PDOC DISCHARGE SUMMARY ---
General - Admit/Disc Date/PCP Admission Date/Primary Care Provider: 07/06/16 20:53 KEITH HAWKINS Discharge Date: 07/16/16 - Discharge Diagnosis (1) Acute on chronic respiratory failure with hypoxemia Is this a current diagnosis for this admission?: Yes (2) Anxiety, generalized Is this a current diagnosis for this admission?: Yes (3) Chronic obstructive pulmonary disease with (acute) exacerbation Is this a current diagnosis for this admission?: Yes (4) HTN (hypertension) Is this a current diagnosis for this admission?: Yes (5) History of malignant neoplasm of left breast Is this a current diagnosis for this admission?: Yes (6) Hypoxemia requiring supplemental oxygen Is this a current diagnosis for this admission?: Yes (7) Chronic disease anemia Is this a current diagnosis for this admission?: Yes (8) Constipation Is this a current diagnosis for this admission?: Yes (9) Antibiotic-associated diarrhea Is this a current diagnosis for this admission?: No (10) Hypokalemia due to loss of potassium Is this a current diagnosis for this admission?: NoSummary: see attending physician orders. - Additional Information Resuscitation Status: Do Not Resuscitate Home Medications: Alendronate Sodium [Fosamax 70 mg Tablet] 70 mg PO HODGSON@1000 07/06/16 Alprazolam [Xanax 0.25 mg Tablet] 0.25 mg PO Q12HP PRN 07/06/16 Aspirin [Ecotrin 81 mg EC Tablet] 81 mg PO DAILY 07/06/16 Calcium Carbonate [Calcium] 500 mg PO BID 07/06/16 Cyclosporine 0.05% Oph Emulsio [Restasis 0.05% Oph Emulsion Pf 0.4 ml] 1 drop OU Q12 07/06/16 Diltiazem HCl [Dilt-Xr] 240 mg PO DAILY 07/06/16 Ergocalciferol (Vitamin D2) [Vitamin D2] 50,000 unit PO ASDIR PRN 07/06/16 Fluticasone/Salmeterol [Advair 500-50 Diskus 14 Dose/Diskus] 1 puff IH Q12 07/06 Ipratropium/Albuterol Sulfate [Combivent Respimat 4 gm Mdi] 1 puff IH Q6H Ipratropium/Albuterol Sulfate [Iprat-Albut 0.5-3(2.5) mg/3 ml] 3 ml NEB Q4HP PRN 07/06/16 Melatonin 5 mg PO QHS 07/06/16 Mometasone Furoate [Nasonex] 2 spray NASL DAILY 07/06/16 Montelukast Sodium [Singulair 10 mg Tablet] 10 mg PO DAILY 07/06/16 Multivitamin [Daily Multiple Vitamin] 1 each PO DAILY 07/06/16 Tiotropium [place] [Spiriva Handihaler 5 Cap/Kit (18 Mcg/Cap)] 1 puff IH DAILY 07/06/16 History of Present Illness History of Present Illness: ZANA ARREDONDO is a 86 year old female known to my practice who was brought to the ED by medic due to worsening sob. Patient was recently discharged from this facility after presenting in similar situation. She reported persistency of her difficulty with breathing despite usage of supplemental oxygen round the clock and bronchodilator therapy. Due to worsening symptoms she activated EMS service and was brought to the ED. Her oxygen saturation was report in the field at upper 70's on 2L/minute supplemental oxygen but improved with increase concentration to 8L/minute and initial treatment in the ED with DuoNeb, IV Solu Medrol. Patient reported compliance with her medications as prescribed. She denied associated fever or chills but always cold anyway. She denied any chest pain. No nausea, vomiting or abdominal pain. She did expressed to ED doctor that she want's to remain on DNR status. Hospital Course Hospital Course: Patient did respond to IV solu medrol and bronchdilator therapy. She was managed with IV Levofloxacin ad Cefepime for bronchitis and possible airspace disease process. Her blood culture was no growth. Patient developed antibiotic associated diarrhea with positive C.difficile toxin colitis and associated leukocytosis. She was treated with oral Flagyl with improvement in her diarrhea and resolution of her leukocytosis. Her Solu medrol was eventually changed to oral Prednisone tapering regimen with current dosing at 5 mg p.o daily. She is agreeable to discharge home today in company of her daughter and grand daughter. She will resume home health agency services. Physical Exam Vital Signs: Temp Pulse Resp BP Pulse Ox 98.1 F 71 16 134/65 H 99 07/16/16 04:00 07/16/16 11:56 07/16/16 11:56 07/16/16 04:00 07/16/16 11:56 Intake & Output 07/15/16 07/16/16 07/17/16 06:59 06:59 06:59 Intake Total 745 1643 560 Output Total 920 650 Balance 745 718 -90 Weight 53.1 kg Physical Exam: General appearance: PRESENT: no acute distress, mild distress - with lip breathing, thin Head exam: PRESENT: atraumatic, normocephalic Eye exam: PRESENT: conjunctiva pink, EOMI, PERRLA. ABSENT: scleral icterus Respiratory exam: PRESENT: clear to auscultation emerita, decreased breath sounds Cardiovascular exam: PRESENT: RRR. ABSENT: diastolic murmur, rubs, systolic murmur Vascular exam: PRESENT: normal capillary refill GI/Abdominal exam: PRESENT: normal bowel sounds, soft. ABSENT: distended, guarding, mass, organomegaly, rebound, tenderness Musculoskeletal exam: PRESENT: deformity - related to multiple joints involvement with arthritis Neurological exam: PRESENT: alert, awake, CN II-XII grossly intact, motor sensory deficit Psychiatric exam: PRESENT: anxious Skin exam: PRESENT: dry, intact, warm. ABSENT: cyanosis, rash Results Laboratory Results: 07/15/16 11:20 07/16/16 14:00 07/15/16 07/15/16 07/16/16 11:20 18:30 06:05 Carbonic Acid 1.54 H HCO3/H2CO3 Ratio 25:1 ABG pH 7.50 H ABG pCO2 51.1 H ABG pO2 49.1 L ABG HCO3 38.6 H ABG O2 Saturation 87.1 L ABG Base Excess 13.6 FiO2 32% Sodium 142.5 Potassium 3.2 L Chloride 96 L Carbon Dioxide 41 H* Anion Gap 6 BUN 18 Creatinine 0.44 L Est GFR ( Amer) > 60 Est GFR (Non-Af Amer) > 60 Glucose 72 L Calcium 8.2 L Magnesium 1.9 07/16/16 14:00 Carbonic Acid HCO3/H2CO3 Ratio ABG pH ABG pCO2 ABG pO2 ABG HCO3 ABG O2 Saturation ABG Base Excess FiO2 Sodium 141.3 Potassium 3.5 L Chloride 99 Carbon Dioxide 35 H Anion Gap 7 BUN 14 Creatinine 0.62 Est GFR ( Amer) > 60 Est GFR (Non-Af Amer) > 60 Glucose 148 H Calcium 8.5 Magnesium Impressions: Chest X-Ray 07/06/16 11:40 IMPRESSION: COPD. BASILAR ATELECTASIS/ SCARRING. NO DEFINITE ACUTE FINDINGS. Qualifiers PATEINT BEING DISCHARGED WITH ANY OF THE FOLLOWING DIAGNOSIS?: No Plan Discharge Plan: D/C Home today with Flagyl 500 mg po tid x 8 days. Prednisone 5 mg p.o daily, Potassium 20mEq p.o daily, Acetazolamide 250 mg p.o bid. She will remain on all approved other pre-admission medications. She will follow up in office in 1 week Time Spent: Less than 30 Minutes
[2016-07-16 16:49] VITALS: BP 134/65
== END 2016-07-16 17:45 | disposition home health service (06) | DRG 191 ==
LOC: ER 11:26 → EH 13:57 → UNDOADMIN 13:57 → EH 20:53 → 3S 21:01
PROVIDERS: ADMIT Internal Medicine Geriatric Medicine; ATTEND Internal Medicine Geriatric Medicine
PROC: 3E0F73Z Introduction of Anti-inflammatory into Respiratory Tract, Via Natural or Artificial Opening (ICD-10-PCS; 2016-07-06)
PROC: 5A09457 Assistance with Respiratory Ventilation, 24-96 Consecutive Hours, Continuous Positive Airway Pressure (ICD-10-PCS; 2016-07-07)
PROC: 30233N1 Transfusion of Nonautologous Red Blood Cells into Peripheral Vein, Percutaneous Approach (ICD-10-PCS; principal; 2016-07-10)
DX: J44.1 Chronic obstructive pulmonary disease with (acute) exacerbation (principal); K52.1 Toxic gastroenteritis and colitis; A04.7 Enterocolitis due to Clostridium difficile; D63.8 Anemia in other chronic diseases classified elsewhere; F41.1 Generalized anxiety disorder; I10 Essential (primary) hypertension; K59.00 Constipation, unspecified; T36.95XA Adverse effect of unspecified systemic antibiotic, initial encounter; E87.6 Hypokalemia; M19.90 Unspecified osteoarthritis, unspecified site; M81.0 Age-related osteoporosis without current pathological fracture; Z85.3 Personal history of malignant neoplasm of breast; Z90.12 Acquired absence of left breast and nipple; Z66 Do not resuscitate; Z79.899 Other long term (current) drug therapy; Z79.82 Long term (current) use of aspirin; Z88.0 Allergy status to penicillin; Z88.2 Allergy status to sulfonamides; Z88.7 Allergy status to serum and vaccine; Z87.891 Personal history of nicotine dependence
CPT/HCPCS: 36415; 36430; 36600; 71010; 80048; 80053; 82272; 82550; 82553; 82803; 83540; 83735; 83880; 84484; 85025; 85610; 85730; 86850; 86900; 86901; 86920; 87040; 87493; 87804; 93005; 93010; 94640; 94660; 96365; 96366; 99285; J0696; J1642; J1650; J1956; J2930; J3475; J3480; J3490; J7030; J7512; J7620; P9016

== ENCOUNTER 2016-07-30 07:59 | Inpatient (IN) | payer MEDICARE, OTHER ==
[2016-07-30] MEDS ORDERED: IPRATROPIUM/ALBUTEROL 0.5-2.5 MG/3 ML AMPUL NEB ONE (08:17)
[2016-07-30] MEDS ORDERED: METHYLPREDNISOLONE INJ 125 MG/2 ML SDV IV ONE (08:17)
--- NOTE | 2016-07-30 08:23 | ER Document Report ---
ED Respiratory Problem - General Information source: Patient, [facility] Records TRAVEL OUTSIDE OF THE [place] IN LAST 30 DAYS: No - HPI Patient complains to provider of: Short of breath Onset: Last week - Progressively worsening Duration: Worse/persistent Context: Hx COPD At home treatment: Oxygen - 3 L Associated symptoms: Extertional dyspnea, Hurts to breathe, Short of breath, Other - Diarrhea <CHECO ACHARYA - Last Filed: 07/30/16 08:24> <IVY ORNELAS - Last Filed: 07/30/16 12:54> - General Chief Complaint: Breathing Difficulty Stated Complaint: DIFFICULTY BREATHING Notes: Patient is an 86-year-old female presenting to the emergency department concerned of difficulty breathing that has been progressively worsening since 1 week ago. Patient is currently on 3 L oxygen at home, and states that she still becomes short of breath with any type of exertion. Patient was admitted here at [facility] from July 06 to 07/23/2016 and developed C. difficile. Patient states that she continues to experience diarrhea and fecal incontinence. (CHECO ACHARYA) - Related Data Allergies/Adverse Reactions: Penicillins Allergy (Verified 06/09/16 11:17) SWELLING, ITCHING Sulfa (Sulfonamide Antibiotics) Allergy (Verified 06/09/16 11:17) SWELLING, ITCHING, RASH Tetanus Vaccines and Toxoid [Tetanus] Allergy (Verified 06/09/16 11:17) SWELLING AT SITE Past Medical History - General Information source: Patient - Social History Smoking Status: Former Smoker Family History: Reviewed & Not Pertinent - Past Medical History Cardiac Medical History: Reports: Hx Hypertension Pulmonary Medical History: Reports: Hx Bronchitis, Hx COPD, Hx Pneumonia Musculoskeltal Medical History: Reports Hx Arthritis - OSTEOARTHRITIS, OSTEOPOROSIS Past Surgical History: Reports: Hx Mastectomy - LUMPECTOMY AVOID LEFT ARM, Hx Oral Surgery - MOUTH CA - Immunizations Hx Diphtheria, Pertussis, Tetanus Vaccination: No - ALLERGIC TO TETANUS VACCINE Hx Pneumococcal Vaccination: 12/26/14 <CHECO ACHARYA - Last Filed: 07/30/16 08:24> Review of Systems - Review of Systems Constitutional: No symptoms reported EENT: No symptoms reported Cardiovascular: No symptoms reported Respiratory: See HPI, Hurts to breathe, Short of breath Gastrointestinal: See HPI, Diarrhea, Fecal incontinence Genitourinary: No symptoms reported Female Genitourinary: No symptoms reported Musculoskeletal: No symptoms reported Skin: No symptoms reported Hematologic/Lymphatic: No symptoms reported Neurological/Psychological: No symptoms reported -: Yes All other systems reviewed and negative <CHECO ACHARYA - Last Filed: 07/30/16 08:24> Physical Exam - General General appearance: Alert - HEENT Head: Normocephalic, Atraumatic Eyes: Normal Pupils: PERRL - Respiratory Respiratory status: Retractions Breath sounds: Rhonchi, Wheezing - Diffuse, Other - Dyspnea - Cardiovascular Rhythm: Tachycardia Heart sounds: Normal auscultation Murmur: No - Abdominal Inspection: Normal Distension: No distension Bowel sounds: Normal Tenderness: Nontender Organomegaly: No organomegaly - Back Back: Normal, Nontender - Extremities General upper extremity: Normal inspection, Nontender Ankle: No: Edema Foot: Edema - Bilaterally - Neurological Neuro grossly intact: Yes Cognition: Normal Orientation: AAOx4 Elisabeth Coma Scale Eye Opening: Spontaneous Elisabeth Coma Scale Verbal: Oriented Elisabeth Coma Scale Motor: Obeys Commands [place] Coma Scale Total: 15 Speech: Normal Motor strength normal: LUE, RUE, LLE, RLE Sensory: Normal - Psychological Associated symptoms: Normal affect, Normal mood - Skin Skin Temperature: Warm Skin Moisture: Dry Skin Color: Normal <CHECO ACHARYA - Last Filed: 07/30/16 08:24> Course - Laboratory Result Diagrams: 07/30/16 08:45 07/30/16 08:45 - Diagnostic Test Radiology reviewed: Image reviewed, Reports reviewed - Chest x-ray shows COPD with enlarged central pulmonary arteries, this is a stable x-ray - EKG Interpretation by Nv EKG shows normal: Sinus rhythm, [place], Intervals, QRS Complexes, ST-T Waves Rate: Tachycardia - 129 Rhythm: APC's P Waves: LAE - Consults Dr. Montoya Time consulted: 12:50 Consulted provider: will see as inpatient <IVY ORNELAS - Last Filed: 07/30/16 12:54> - Vital Signs Vital signs: Temp Pulse Resp BP Pulse Ox 99.4 F 24 H 118/71 94 07/30/16 08:07 07/30/16 12:01 07/30/16 12:01 07/30/16 12:01 - Laboratory Laboratory results interpreted by me: 07/30/16 07/30/16 08:45 08:45 RBC 3.42 L Hgb 9.4 L Hct 29.1 L RDW 22.5 H Seg Neuts % (Manual) 82 H Lymphocytes % (Manual) 0 L Monocytes % (Manual) 14 H Abs Lymphs (Manual) 0.0 L Chloride 110 H Creatinine 0.43 L Glucose 136 H Calcium 8.2 L Creatine Kinase 21 L Total Protein 5.1 L Albumin 3.0 L Discharge <CHECO ACHARYA - Last Filed: 07/30/16 08:24> - Discharge Admitting Provider: Lindsay Unit Admitted: IMCU <IVY ORNELAS - Last Filed: 07/30/16 12:54> - Discharge Clinical Impression: Obstructive chronic bronchitis with exacerbation, End stage chronic obstructive pulmonary disease, Tachycardia, Anemia Dyspnea Qualifiers: Dyspnea type: shortness of breath Qualified Code(s): R06.02 - Shortness of breath Condition: Stable Disposition: ADMITTED INPATIENT Scribe Attestation: 07/30/16 12:54 I personally performed the services described in the documentation, reviewed and edited the documentation which was dictated to the scribe in my presence, and it accurately records my words and actions. (IVY ORNELAS) Scribe Documentation - Scribe Written by Scribe:: Checo Acharya 07/30/2016 0817 acting as scribe for :: Katelyn <CHECO ACHARYA - Last Filed: 07/30/16 08:24>
[2016-07-30 09:10] LABS: HEMATOCRIT 29.1 % (36.0-47.0); HEMOGLOBIN 9.4 g/dL (12.0-15.5); HGB HCT DIFFERENCE -0.9; MEAN CORPUSCULAR HEMOGLOBIN 27.4 pg (27.0-33.4); MEAN CORPUSCULAR HGB CONC 32.3 g/dL (32.0-36.0); MEAN CORPUSCULAR VOLUME 85 fl (80-97); RED BLOOD COUNT 3.42 10^6/uL (3.72-5.28); RED CELL DISTRIBUTION WIDTH 22.5 % (11.5-14.0); WHITE BLOOD COUNT 8.5 10^3/uL (4.0-10.5)
[2016-07-30] MEDS ORDERED: ALBUTEROL SULFATE 0.083% NEB 2.5 MG/3 ML AMPUL NEB ONE (09:27)
[2016-07-30 09:30] LABS: ALANINE AMINOTRANSFERASE 25 U/L (9-52); ALKALINE PHOSPHATASE 54 U/L (38-126); ANION GAP 9 (5-19); ASPARTATE AMINO TRANSFERASE 17 U/L (14-36); BILIRUBIN,DIRECT 0.2 mg/dL (0.0-0.4); BILIRUBIN,TOTAL 0.5 mg/dL (0.2-1.3); BLOOD UREA NITROGEN 10 mg/dL (7-20); CALCIUM 8.2 mg/dL (8.4-10.2); CARBON DIOXIDE 26 mmol/L (22-30); CHLORIDE 110 mmol/L (98-107); CREATINE KINASE 21 U/L (30-135); CREATININE RESULT 0.43 mg/dL (0.52-1.25); GLUCOSE 136 mg/dL (75-110); MAGNESIUM 1.8 mg/dL (1.6-2.3); POTASSIUM 3.6 mmol/L (3.6-5.0); SODIUM 144.7 mmol/L (137-145); TOTAL PROTEIN 5.1 g/dL (6.3-8.2)
[2016-07-30 09:33] LABS: BAND NEUTROPHILS % (MANUAL) 3 % (3-5); BASOPHILS % (MANUAL) 1 % (0-2); EOSINOPHILS % (MANUAL) 0 % (0-6); LYMPHOCYTES % (MANUAL) 0 % (13-45); TOTAL CELLS COUNTED 100
[2016-07-30 09:34] LABS: HYPOCHROMASIA 1+; OVALOCYTES SLIGHT; POIKILOCYTOSIS SLIGHT; POLYCHROMASIA SLIGHT; TOXIC GRANULATION SLIGHT
[2016-07-30 09:48] LABS: TROPONIN I < 0.012 ng/mL
--- NOTE | 2016-07-30 12:41 | EKG REPORT ---
SEVERITY:- ABNORMAL ECG - SINUS TACHYCARDIA MULTIPLE ATRIAL PREMATURE COMPLEXES PROBABLE LEFT ATRIAL ABNORMALITY POOR R PROGRESSION ANT PRECORDIAL LEADS. : Confirmed by: Talat Junior MD 30-Jul-2016 12:40:32
--- NOTE | 2016-07-30 18:27 | PDOC H&P ---
History of Present Illness Admission Date/PCP: 07/30/16 13:57 KEITHLACEY HAWKINS Patient complains of: Difficulty with breathing History of Present Illness: ZANA ARREDONDO is a 86 year old female known to my practice who was recently discharged from this hospital for similar symptoms presentation. Patient reported increase difficulty with breathing and lack of endurance with need to frequently stop to rest. Patient remain on supplemental oxygen at home at 2-3 L/ minute via nasal canula. She reported always been cold but denied any definite fever of chills. No chest pain. No nausea or vomiting. She denied any significant abdominal pain but continue to experience episodes of diarrhea. Her initail evaluation was remarkable for chest X ray devoid of any acute pathology. Past Medical History Cardiac Medical History: Reports: Hypertension Pulmonary Medical History: Reports: Bronchitis, Chronic Obstructive Pulmonary Disease (COPD), Pneumonia Musculoskeltal Medical History: Reports: Arthritis - OSTEOARTHRITIS, OSTEOPOROSIS Hematology: Reports: Anemia - hx of Denies: Sickle Cell Disease Past Surgical History Past Surgical History: Reports: Mastectomy - LUMPECTOMY AVOID LEFT ARM Denies: Amputation Social History Smoking Status: Former Smoker Frequency of Alcohol Use: None Hx Recreational Drug Use: No Drugs: None Family History Family History: Reviewed & Not Pertinent Parental Family History Reviewed: Yes Children Family History Reviewed: Yes Sibling(s) Family History Reviewed.: Yes Medication/Allergy Home Medications: Acetazolamide [Diamox 250 mg Tab] 250 mg PO Q12 07/30/16 Alendronate Sodium [Fosamax 70 mg Tablet] 70 mg PO HODGSON@0700 PRN 07/30/16 Alprazolam [Xanax 0.25 mg Tablet] 0.25 mg PO Q12HP PRN 07/30/16 Aspirin [Ecotrin 81 mg EC Tablet] 81 mg PO DAILY 07/30/16 Calcium Carbonate [Calcium] 500 mg PO BID 07/30/16 Cyclosporine 0.05% Oph Emulsio [Restasis 0.05% Opthalmic [place]] 1 drop OU Q12 07/30/16 Diltiazem HCl [Dilt-Xr] 240 mg PO DAILY 07/30/16 Ergocalciferol (Vitamin D2) [Vitamin D2] 50,000 unit PO Q30D PRN 07/30/16 Fluticasone/Salmeterol [Advair 500-50 Diskus 28 Dose] 1 inh IH Q12 07/30/16 Ipratropium/Albuterol Sulfate [Combivent Respimat Inhal [place]] 1 puff IH Q6 08/11 Ipratropium/Albuterol Sulfate [Duoneb 3 ml Ampul] 3 ml NEB RTQ4HP PRN 07/30/16 Melatonin [[place]] 3 mg PO QHS 07/30/16 Mometasone Furoate [Nasonex] 2 spray NS DAILY 07/30/16 Montelukast Sodium [Singulair 10 mg Tablet] 10 mg PO DAILY 07/30/16 Multivitamin [Daily Multiple Vitamin] 1 tab PO DAILY 07/30/16 Potassium Chloride 20 meq PO DAILY 07/30/16 Tiotropium [place] [Spiriva Handihaler 18 mcg/dose (30 Dose)] 1 cap IH DAILY 08/11 Allergies/Adverse Reactions: Penicillins Allergy (Verified 06/09/16 11:17) SWELLING, ITCHING Sulfa (Sulfonamide Antibiotics) Allergy (Verified 06/09/16 11:17) SWELLING, ITCHING, RASH Tetanus Vaccines and Toxoid [Tetanus] Allergy (Verified 06/09/16 11:17) SWELLING AT SITE Review of Systems Constitutional: PRESENT: chills, fatigue, weakness. ABSENT: as per HPI, anorexia, fever(s), headache(s), night sweats, weight gain, weight loss, other Eyes: PRESENT: visual disturbances - use corrective glasses Ears: ABSENT: hearing changes Nose, Mouth, and Throat: ABSENT: as per HPI, headache(s), mouth pain, sore throat, vertigo, other Cardiovascular: PRESENT: dyspnea on exertion. ABSENT: as per HPI, chest pain, edema, orthropnea, palpitations, other Respiratory: PRESENT: dyspnea. ABSENT: as per HPI, cough, hemoptysis, sputum, other Gastrointestinal: PRESENT: diarrhea. ABSENT: as per HPI, abdominal pain, bloating, coffee ground emesis, constipation, dysphagia, heartburn, hematemesis , hematochezia, melena, nausea, vomiting, other Musculoskeletal: PRESENT: deformity - related to joint involvement with arthriis Integumentary: ABSENT: rash, wounds Neurological: PRESENT: weakness. ABSENT: as per HPI, abnormal gait, abnormal movements, abnormal speech, confusion, convulsions, dizziness, focal weakness, frequent falls, lack of coordination, memory loss, numbness, paresthesias, restless legs, syncope, tingling, tremor(s), vertigo, other Psychiatric: PRESENT: anxiety. ABSENT: as per HPI, depression, hallucinations, homidical ideation, suicidal ideation, other Hematologic/Lymphatic: ABSENT: easy bleeding, easy bruising, lymphadenopathy Allergic/Immunologic: ABSENT: as per HPI, seasonal rhinorrhea, other Physical Exam Vital Signs: Temp Pulse Resp BP Pulse Ox 97.5 F 121 H 18 124/72 93 07/30/16 16:30 07/30/16 16:30 07/30/16 16:30 07/30/16 16:30 07/30/16 16:30 Intake & Output 07/29/16 07/30/16 07/31/16 06:59 06:59 06:59 Weight 48.5 kg General appearance: PRESENT: no acute distress, cooperative, severe distress - remain on supplemental oxygen Head exam: PRESENT: atraumatic, normocephalic Eye exam: PRESENT: conjunctiva pink, EOMI, PERRLA. ABSENT: scleral icterus Ear exam: PRESENT: normal external ear exam Mouth exam: PRESENT: moist, tongue midline Neck exam: PRESENT: full ROM. ABSENT: carotid bruit, JVD, lymphadenopathy, thyromegaly Respiratory exam: PRESENT: accessory muscle use, decreased breath sounds, prolonged expiratory phas, retraction, rhonchi, symmetrical, tachypnea, wheezes. ABSENT: chest wall tenderness, clear to auscultation emerita, crackles, rales, stridor, unlabored, other Cardiovascular exam: PRESENT: irregular rhythm, tachycardia Pulses: PRESENT: normal dorsalis pedis pul, +2 pedal pulses bilateral Vascular exam: PRESENT: normal capillary refill GI/Abdominal exam: PRESENT: normal bowel sounds, soft. ABSENT: distended, guarding, mass, organolmegaly, rebound, tenderness Extremities exam: PRESENT: full ROM Musculoskeletal exam: PRESENT: deformity - related to joint involvement with arthritis Neurological exam: PRESENT: alert, awake, CN II-XII grossly intact, motor sensory deficit Psychiatric exam: PRESENT: agitated, appropriate affect Skin exam: PRESENT: dry, intact, warm. ABSENT: cyanosis, rash Results Impressions: Chest X-Ray 07/30/16 10:29 IMPRESSION: Obstructive lung disease with enlarged central pulmonary arteries, stable Assessment & Plan - Diagnosis (1) Paroxysmal atrial fibrillation Is this a current diagnosis for this admission?: YesPlan: Probable due to her hypoxemia and increase demand of her increase work of breathing. (2) End stage chronic obstructive pulmonary disease Is this a current diagnosis for this admission?: YesPlan: See admitting physician orders. (3) Acute on chronic respiratory failure with hypoxemia Is this a current diagnosis for this admission?: YesPlan: See admitting physician orders. Patient will be placed on BIPAP machine support while sleeping. Maintain on supplemental oxygen to keep saturation above 90 %. (4) Antibiotic-associated diarrhea Is this a current diagnosis for this admission?: YesPlan: See admitting physician orders. We will obtain stool C. difficile toxin titer. (5) Hypoxemia requiring supplemental oxygen Is this a current diagnosis for this admission?: YesPlan: See admitting physician orders. - Time Time Spent: 50 to 70 Minutes Medications reviewed and adjusted accordingly: Yes Anticipated discharge: Home with Homehealth Within: Other - Inpatient Certification Based on my medical assessment, after consideration of the patient's comorbidities, presenting symptoms, or acuity I expect that the services needed warrant INPATIENT care.: Yes I certify that my determination is in accordance with my understanding of Medicare's requirements for reasonable and necessary INPATIENT services [42 CFR 412.3e].: Yes Medical Necessity: Need Close Monitoring Due to Risk of Patient Decompensation, Need For IV Fluids, Need For Continuous Telemetry Monitoring, Need for Nebulizer Therapy and Monitoring of Response, Risk of Complication if Not Cared For in Hospital Post Hospital Care: D/C [facility] Documentation - Plan Summary Plan Summary: See admitting physician orders.
[2016-07-30] MEDS ORDERED: (PENDING PHARMACY ID) (Alendronate Sodium [Fosamax 70 Mg Tablet] 70 MG) PO PRN (18:36)
[2016-07-30 19:09] LABS: ARTERIAL BLOOD O2 SATURATION 81.8 % (94-98)
[2016-07-30] MEDS: LEVALBUTEROL HCL NEB 1.25 MG/3 ML AMPUL NEB SCH ×2 (19:46→23:52)
[2016-07-30 20:13] LABS: PARTIAL THROMBOPLASTIN TIME 32.5 SEC (23.5-35.8)
[2016-07-30] MEDS: NORMAL SALINE 1000 ML 1,000 ML IV PRN (20:51)
[2016-07-30] MEDS ORDERED: ENOXAPARIN SODIUM INJ 30 MG/0.3 ML DISP.SYRIN SUBCUT ONE (21:00)
[2016-07-30] MEDS: CYCLOSPORINE 0.05% OPH EMULSIO 0.4 ML DROPERETTE OU SCH (21:48)
[2016-07-30] MEDS: METHYLPREDNISOLONE INJ 125 MG/2 ML SDV IV SCH (21:49)
[2016-07-30] MEDS: ALPRAZOLAM 0.25 MG TABLET PO PRN (21:50)
[2016-07-30] MEDS: ACETAZOLAMIDE 250 MG TABLET PO SCH (21:50)
[2016-07-30] MEDS ORDERED: (PENDING PHARMACY ID) (Melatonin [Melatin] 3 MG) PO SCH (22:00)
[2016-07-31] MEDS: LEVALBUTEROL HCL NEB 1.25 MG/3 ML AMPUL NEB SCH ×3 (04:12→11:56)
[2016-07-31] MEDS: METHYLPREDNISOLONE INJ 125 MG/2 ML SDV IV SCH ×3 (05:19→21:34)
[2016-07-31] MEDS: LANSOPRAZOLE 30 MG TAB.RAP.DR PO SCH (05:19)
[2016-07-31 05:58] LABS: HEMATOCRIT 27.4 % (36.0-47.0); HEMOGLOBIN 9.1 g/dL (12.0-15.5); HGB HCT DIFFERENCE -0.1; MEAN CORPUSCULAR HEMOGLOBIN 27.9 pg (27.0-33.4); MEAN CORPUSCULAR HGB CONC 33.1 g/dL (32.0-36.0); MEAN CORPUSCULAR VOLUME 84 fl (80-97); RED BLOOD COUNT 3.25 10^6/uL (3.72-5.28); RED CELL DISTRIBUTION WIDTH 22.6 % (11.5-14.0); WHITE BLOOD COUNT 4.5 10^3/uL (4.0-10.5)
[2016-07-31] MEDS: NORMAL SALINE 1000 ML 1,000 ML IV PRN ×2 (06:09→22:21)
[2016-07-31 06:18] LABS: ALANINE AMINOTRANSFERASE 29 U/L (9-52); ALBUMIN 2.8 g/dL (3.5-5.0); ALKALINE PHOSPHATASE 49 U/L (38-126); ANION GAP 7 (5-19); ASPARTATE AMINO TRANSFERASE 14 U/L (14-36); BILIRUBIN,DIRECT 0.3 mg/dL (0.0-0.4); BILIRUBIN,TOTAL 0.6 mg/dL (0.2-1.3); BLOOD UREA NITROGEN 11 mg/dL (7-20); CALCIUM 8.1 mg/dL (8.4-10.2); CARBON DIOXIDE 28 mmol/L (22-30); CHLORIDE 111 mmol/L (98-107); GLUCOSE 154 mg/dL (75-110); POTASSIUM 3.5 mmol/L (3.6-5.0); SODIUM 145.5 mmol/L (137-145); TOTAL PROTEIN 5.2 g/dL (6.3-8.2)
[2016-07-31 06:28] LABS: BASOPHILS % (MANUAL) 0 % (0-2); EOSINOPHILS % (MANUAL) 0 % (0-6); LYMPHOCYTES % (MANUAL) 5 % (13-45); TOTAL CELLS COUNTED 100
[2016-07-31 06:29] LABS: ANISOCYTOSIS 2+; HYPOCHROMASIA 1+
[2016-07-31] MEDS: ENOXAPARIN SODIUM INJ 30 MG/0.3 ML DISP.SYRIN SUBCUT SCH (08:44)
[2016-07-31] MEDS ORDERED: (PENDING PHARMACY ID) (Mometasone Furoate [Nasonex] 2 SPRAY) NS SCH (10:00)
[2016-07-31] MEDS ORDERED: DILTIAZEM HCL 240 MG CAPSULE.CR PO SCH (10:00)
[2016-07-31] MEDS: MONTELUKAST SODIUM 10 MG TABLET PO SCH (10:20)
[2016-07-31] MEDS: POTASSIUM CHLORIDE 10 MEQ TABLET.SA PO SCH (10:20)
[2016-07-31] MEDS: CALCIUM CARBONATE 500 MG TABLET PO SCH ×2 (10:21→17:40)
[2016-07-31] MEDS: ASPIRIN 81 MG TABLET, ENT COATED PO SCH (10:21)
[2016-07-31] MEDS: FLUTICASONE NASAL SPRAY 50 MCG/SPRY 120 SPRAY/16 GM NASL SCH (10:22)
[2016-07-31] MEDS: ACETAZOLAMIDE 250 MG TABLET PO SCH ×2 (10:22→21:34)
[2016-07-31] MEDS: MULTIVITAMIN TABLET PO SCH (10:22)
[2016-07-31] MEDS: TIOTROPIUM BROMIDE DPI 5 CAP/KIT (18 MCG/CAP) IH SCH (10:23)
[2016-07-31] MEDS: CYCLOSPORINE 0.05% OPH EMULSIO 0.4 ML DROPERETTE OU SCH ×2 (10:24→21:37)
--- NOTE | 2016-07-31 11:56 | PDOC PROGRESS REPORT ---
Subjective Progress Note for:: 07/31/16 Subjective:: Patient reported some improvement in her breathing. No need for BIPAP support with her admitting ABG findings. Her diarrhea do persist with less watery stool. Her stool C. difficile was reported positive. No nausea, vomiting, or abdominal pain. Patient requested for regular diet. No reported fever or chills. Physical Exam Vital Signs: Temp Pulse Resp BP Pulse Ox 98.6 F 101 H 22 H 135/77 H 95 07/31/16 07:39 07/31/16 08:28 07/31/16 08:28 07/31/16 07:39 07/31/16 08:28 Intake & Output 07/30/16 07/31/16 08/01/16 06:59 06:59 06:59 Intake Total 1300 Balance 1300 Weight 47.2 kg General appearance: PRESENT: cooperative, thin, other - moderate respiratory distress with purse lip and break in sentensis. Head exam: PRESENT: atraumatic, normocephalic Eye exam: PRESENT: conjunctiva pink, EOMI, PERRLA. ABSENT: scleral icterus Respiratory exam: PRESENT: decreased breath sounds, rhonchi - minimal end expiratory phase Cardiovascular exam: PRESENT: tachycardia GI/Abdominal exam: PRESENT: normal bowel sounds, soft. 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 ABSENT: motor sensory deficit Psychiatric exam: PRESENT: anxious Skin exam: PRESENT: dry, intact, warm. ABSENT: cyanosis, rash Results Laboratory Results: 07/31/16 04:52 07/31/16 04:52 07/30/16 07/30/16 07/31/16 18:46 20:58 04:52 WBC 4.5 RBC 3.25 L Hgb 9.1 L Hct 27.4 L MCV 84 MCH 27.9 MCHC 33.1 RDW 22.6 H Plt Count 353 Seg Neutrophils % Not Reportable Lymphocytes % Not Reportable Monocytes % Not Reportable Eosinophils % Not Reportable Basophils % Not Reportable Absolute Neutrophils Not Reportable Absolute Lymphocytes Not Reportable Absolute Monocytes Not Reportable Absolute Eosinophils Not Reportable Absolute Basophils Not Reportable Carbonic Acid 1.05 HCO3/H2CO3 Ratio 20:1 ABG pH 7.42 ABG pCO2 34.8 L ABG pO2 44.5 L ABG HCO3 22.0 ABG O2 Saturation 81.8 L ABG Base Excess -2.0 FiO2 3L Sodium Potassium Chloride Carbon Dioxide Anion Gap BUN Creatinine Est GFR ( Amer) Est GFR (Non-Af Amer) Glucose Calcium Total Bilirubin AST ALT Alkaline Phosphatase Total Protein Albumin Stool for White Cells NO WBCs SEEN 07/31/16 04:52 WBC RBC Hgb Hct MCV MCH MCHC RDW Plt Count Seg Neutrophils % Lymphocytes % Monocytes % Eosinophils % Basophils % Absolute Neutrophils Absolute Lymphocytes Absolute Monocytes Absolute Eosinophils Absolute Basophils Carbonic Acid HCO3/H2CO3 Ratio ABG pH ABG pCO2 ABG pO2 ABG HCO3 ABG O2 Saturation ABG Base Excess FiO2 Sodium 145.5 H Potassium 3.5 L Chloride 111 H Carbon Dioxide 28 Anion Gap 7 BUN 11 Creatinine 0.40 L Est GFR ( Amer) > 60 Est GFR (Non-Af Amer) > 60 Glucose 154 H Calcium 8.1 L Total Bilirubin 0.6 AST 14 ALT 29 Alkaline Phosphatase 49 Total Protein 5.2 L Albumin 2.8 L Stool for White Cells Impressions: Chest X-Ray 07/30/16 10:29 IMPRESSION: Obstructive lung disease with enlarged central pulmonary arteries, stable Assessment & Plan - Diagnosis (1) Paroxysmal atrial fibrillation Is this a current diagnosis for this admission?: YesPlan: Probable more of supraventricular tachycardia. I will increase Cardizem CD to 180 mg po q12 hours. (2) End stage chronic obstructive pulmonary disease Is this a current diagnosis for this admission?: YesPlan: See attending physician orders. I will decrease IV Solu Medrol to 80 mg [id number]. 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 (7) Hypokalemia due to loss of potassium Is this a current diagnosis for this admission?: YesPlan: Start on Potassium replacement therapy. - Time Time Spent with patient: 25-34 minutes Medications reviewed and adjusted accordingly: Yes Anticipated discharge: Home with Homehealth Within: Other - Inpatient Certification Based on my medical assessment, after consideration of the patient's comorbidities, presenting symptoms, or acuity I expect that the services needed warrant INPATIENT care.: Yes I certify that my determination is in accordance with my understanding of Medicare's requirements for reasonable and necessary INPATIENT services [42 CFR 412.3e].: Yes Medical Necessity: Need Close Monitoring Due to Risk of Patient Decompensation, Need For IV Fluids, Need For Continuous Telemetry Monitoring, Need for Nebulizer Therapy and Monitoring of Response, Need for IV Antibiotics, Risk of Complication if Not Cared For in Hospital Post Hospital Care: D/C Family Practice Doctor Documentation - Plan Summary Plan Summary: See attending physician orders.
[2016-07-31] MEDS: METRONIDAZOLE 500 MG/NS RTU 100 ML IV SCH ×3 (12:08→23:46)
[2016-07-31] MEDS: ACETAMINOPHEN 325 MG TABLET PO PRN (12:51)
[2016-07-31] MEDS: POTASSI CL 20 MEQ/50 ML RIDER 50 ML IV SCH ×2 (12:52→16:15)
[2016-07-31] MEDS: VANCOMYCIN HCL INJ 500 MG VIAL PO SCH ×2 (17:40→23:46)
[2016-07-31] MEDS: ALPRAZOLAM 0.25 MG TABLET PO PRN (21:34)
[2016-07-31] MEDS: DILTIAZEM HCL 180 MG CAPSULE.CR PO SCH (21:37)
[2016-08-01] MEDS: METRONIDAZOLE 500 MG/NS RTU 100 ML IV SCH ×3 (06:05→18:13)
[2016-08-01] MEDS: LANSOPRAZOLE 30 MG TAB.RAP.DR PO SCH (06:05)
[2016-08-01] MEDS: METHYLPREDNISOLONE INJ 125 MG/2 ML SDV IV SCH ×3 (06:07→22:08)
[2016-08-01] MEDS: VANCOMYCIN HCL INJ 500 MG VIAL PO SCH ×3 (06:07→18:12)
[2016-08-01] MEDS: ACETAZOLAMIDE 250 MG TABLET PO SCH ×2 (10:38→22:12)
[2016-08-01] MEDS: ENOXAPARIN SODIUM INJ 30 MG/0.3 ML DISP.SYRIN SUBCUT SCH (10:38)
[2016-08-01] MEDS: MONTELUKAST SODIUM 10 MG TABLET PO SCH (10:38)
[2016-08-01] MEDS: POTASSIUM CHLORIDE 10 MEQ TABLET.SA PO SCH (10:38)
[2016-08-01] MEDS: CALCIUM CARBONATE 500 MG TABLET PO SCH ×2 (10:39→18:12)
[2016-08-01] MEDS: MULTIVITAMIN TABLET PO SCH (10:39)
[2016-08-01] MEDS: DILTIAZEM HCL 180 MG CAPSULE.CR PO SCH ×2 (10:39→22:11)
[2016-08-01] MEDS: TIOTROPIUM BROMIDE DPI 5 CAP/KIT (18 MCG/CAP) IH SCH (10:40)
[2016-08-01] MEDS: CYCLOSPORINE 0.05% OPH EMULSIO 0.4 ML DROPERETTE OU SCH ×2 (10:40→22:08)
[2016-08-01] MEDS: ASPIRIN 81 MG TABLET, ENT COATED PO SCH (10:40)
[2016-08-01] MEDS: FLUTICASONE NASAL SPRAY 50 MCG/SPRY 120 SPRAY/16 GM NASL SCH (10:40)
[2016-08-01] MEDS: LEVALBUTEROL HCL NEB 1.25 MG/3 ML AMPUL NEB PRN (11:59)
--- NOTE | 2016-08-01 13:27 | PDOC PROGRESS REPORT ---
Subjective Subjective:: Patient reported continue diarrhea. She is currently on IV Flagyl and oral Vancocin therapy for recurrent C. difficile toxin colitis. Breathing with some improvement but still SOB with minimal efforts. There is nausea but no vomiting or abdominal pain. No chest pain. No reported fever or chills. Physical Exam Vital Signs: Temp Pulse Resp BP Pulse Ox 97.5 F 96 24 H 124/53 L 96 08/01/16 11:20 08/01/16 11:59 08/01/16 11:59 08/01/16 11:20 08/01/16 11:59 Intake & Output 07/31/16 08/01/16 08/02/16 06:59 06:59 06:59 Intake Total 1300 2677 362 Balance 1300 2677 362 Weight 47.2 kg 49.5 kg Physical Exam: General appearance: PRESENT: cooperative, thin, other - moderate respiratory distress with purse lip and break in sentensis. Head exam: PRESENT: atraumatic, normocephalic Eye exam: PRESENT: conjunctiva pink, EOMI, PERRLA. ABSENT: scleral icterus Respiratory exam: PRESENT: decreased breath sounds, rhonchi - minimal end expiratory phase Cardiovascular exam: PRESENT: tachycardia GI/Abdominal exam: PRESENT: normal bowel sounds, soft. 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 ABSENT: motor sensory deficit Psychiatric exam: PRESENT: anxious Skin exam: PRESENT: dry, intact, warm. ABSENT: cyanosis, rash Results Laboratory Results: 07/31/16 04:52 07/31/16 04:52 07/31/16 04:52 Magnesium 2.0 Impressions: Chest X-Ray 07/30/16 10:29 IMPRESSION: Obstructive lung disease with enlarged central pulmonary arteries, stable Assessment & Plan - Diagnosis (1) Paroxysmal atrial fibrillation Is this a current diagnosis for this admission?: Yes (2) End stage chronic obstructive pulmonary disease Is this a current diagnosis for this admission?: Yes (3) Acute on chronic respiratory failure with hypoxemia Is this a current diagnosis for this admission?: Yes (4) Antibiotic-associated diarrhea Is this a current diagnosis for this admission?: Yes (5) Hypoxemia requiring supplemental oxygen Is this a current diagnosis for this admission?: Yes (6) Clostridium difficile colitis Is this a current diagnosis for this admission?: Yes (7) Hypokalemia due to loss of potassium Is this a current diagnosis for this admission?: Yes - Time Time Spent with patient: 25-34 minutes Medications reviewed and adjusted accordingly: Yes Anticipated discharge: Home with Homehealth - Inpatient Certification Medical Necessity: Need Close Monitoring Due to Risk of Patient Decompensation, Need For Continuous Telemetry Monitoring, Need for Nebulizer Therapy and Monitoring of Response, Need for IV Antibiotics, Risk of Complication if Not Cared For in Hospital Post Hospital 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
[2016-08-01] MEDS: ACETAMINOPHEN 325 MG TABLET PO PRN (14:35)
[2016-08-01] MEDS: ALPRAZOLAM 0.25 MG TABLET PO PRN ×2 (14:39→22:09)
[2016-08-01 15:11] LABS: ANION GAP 5 (5-19); BLOOD UREA NITROGEN 22 mg/dL (7-20); CALCIUM 8.7 mg/dL (8.4-10.2); CARBON DIOXIDE 24 mmol/L (22-30); CHLORIDE 114 mmol/L (98-107); CREATININE RESULT 0.53 mg/dL (0.52-1.25); GLUCOSE 181 mg/dL (75-110); SODIUM 142.7 mmol/L (137-145)
[2016-08-02] MEDS: VANCOMYCIN HCL INJ 500 MG VIAL PO SCH ×5 (00:25→23:12)
[2016-08-02] MEDS: METRONIDAZOLE 500 MG/NS RTU 100 ML IV SCH ×2 (00:25→05:54)
[2016-08-02] MEDS: NORMAL SALINE 1000 ML 1,000 ML IV PRN (05:17)
[2016-08-02] MEDS: METHYLPREDNISOLONE INJ 125 MG/2 ML SDV IV SCH (05:53)
[2016-08-02] MEDS: LANSOPRAZOLE 30 MG TAB.RAP.DR PO SCH (05:55)
[2016-08-02] MEDS: ACETAZOLAMIDE 250 MG TABLET PO SCH ×2 (09:09→23:10)
[2016-08-02] MEDS: ASPIRIN 81 MG TABLET, ENT COATED PO SCH (09:09)
[2016-08-02] MEDS: CALCIUM CARBONATE 500 MG TABLET PO SCH ×2 (09:09→17:23)
[2016-08-02] MEDS: MULTIVITAMIN TABLET PO SCH (09:09)
[2016-08-02] MEDS: ACETAMINOPHEN 325 MG TABLET PO PRN ×2 (09:10→17:33)
[2016-08-02] MEDS: MONTELUKAST SODIUM 10 MG TABLET PO SCH (09:10)
[2016-08-02] MEDS: DILTIAZEM HCL 180 MG CAPSULE.CR PO SCH ×2 (09:10→23:11)
[2016-08-02] MEDS: POTASSIUM CHLORIDE 10 MEQ TABLET.SA PO SCH (09:10)
[2016-08-02] MEDS: CYCLOSPORINE 0.05% OPH EMULSIO 0.4 ML DROPERETTE OU SCH ×2 (09:13→23:11)
[2016-08-02] MEDS: TIOTROPIUM BROMIDE DPI 5 CAP/KIT (18 MCG/CAP) IH SCH (09:14)
[2016-08-02] MEDS: FLUTICASONE NASAL SPRAY 50 MCG/SPRY 120 SPRAY/16 GM NASL SCH (09:14)
[2016-08-02] MEDS: ENOXAPARIN SODIUM INJ 30 MG/0.3 ML DISP.SYRIN SUBCUT SCH (09:14)
--- NOTE | 2016-08-02 12:49 | PDOC PROGRESS REPORT ---
Subjective Progress Note for:: 08/02/16 Subjective:: Patient reported no diarrhea so far today. Breathing with some improvement. No nausea, vomiting or abdominal pain. No chest pain. No reported fever or chills. Remain on IV Flagyl and oral Vancocin therapy for recurrent C. difficile toxin colitis. Physical Exam Vital Signs: Temp Pulse Resp BP Pulse Ox 97.4 F 114 H 19 128/50 H 96 08/02/16 11:41 08/02/16 11:41 08/02/16 11:41 08/02/16 11:41 08/02/16 11:41 Intake & Output 08/01/16 08/02/16 08/03/16 06:59 06:59 06:59 Intake Total 2677 2687 459 Balance 2677 2687 459 Weight 49.5 kg 51.7 kg Physical Exam: General appearance: PRESENT: cooperative, thin, other - moderate respiratory distress with purse lip and break in sentences. Head exam: PRESENT: atraumatic, normocephalic Eye exam: PRESENT: conjunctiva pink, EOMI, PERRLA. ABSENT: scleral icterus Respiratory exam: PRESENT: decreased breath sounds, rhonchi - minimal end expiratory phase Cardiovascular exam: PRESENT: tachycardia GI/Abdominal exam: PRESENT: normal bowel sounds, soft. 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 ABSENT: motor sensory deficit Psychiatric exam: PRESENT: anxious Skin exam: PRESENT: dry, intact, warm. ABSENT: cyanosis, rash Results Laboratory Results: 07/31/16 04:52 08/01/16 14:25 08/01/16 14:25 Sodium 142.7 Potassium 4.0 Chloride 114 H Carbon Dioxide 24 Anion Gap 5 BUN 22 H Creatinine 0.53 Est GFR ( Amer) > 60 Est GFR (Non-Af Amer) > 60 Glucose 181 H Calcium 8.7 Impressions: Chest X-Ray 07/30/16 10:29 IMPRESSION: Obstructive lung disease with enlarged central pulmonary arteries, stable Assessment & Plan - Diagnosis (1) Paroxysmal atrial fibrillation Is this a current diagnosis for this admission?: Yes (2) End stage chronic obstructive pulmonary disease Is this a current diagnosis for this admission?: Yes (3) Acute on chronic respiratory failure with hypoxemia Is this a current diagnosis for this admission?: Yes (4) Antibiotic-associated diarrhea Is this a current diagnosis for this admission?: Yes (5) Hypoxemia requiring supplemental oxygen Is this a current diagnosis for this admission?: Yes (6) Clostridium difficile colitis Is this a current diagnosis for this admission?: Yes (7) Hypokalemia due to loss of potassium Is this a current diagnosis for this admission?: Yes - Time Time Spent with patient: 25-34 minutes Medications reviewed and adjusted accordingly: Yes Anticipated discharge: Home with Homehealth Within: Other - Inpatient Certification Medical Necessity: Need Close Monitoring Due to Risk of Patient Decompensation, Need For Continuous Telemetry Monitoring, Need for IV Antibiotics, Risk of Complication if Not Cared For in Hospital Post 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 Maintain on oral Vancocin. Transition IV Solu Medrol to oral Prednisone tapering regimen. If she continue clinical improvement , consider discharge in next 24 hours or so.
[2016-08-02] MEDS: METRONIDAZOLE 500 MG TABLET PO SCH ×2 (17:22→23:10)
[2016-08-02] MEDS: ALPRAZOLAM 0.25 MG TABLET PO PRN (23:10)
[2016-08-03] MEDS: METRONIDAZOLE 500 MG TABLET PO SCH ×4 (06:31→23:08)
[2016-08-03] MEDS: LANSOPRAZOLE 30 MG TAB.RAP.DR PO SCH (06:31)
[2016-08-03] MEDS: VANCOMYCIN HCL INJ 500 MG VIAL PO SCH ×4 (06:45→23:07)
[2016-08-03] MEDS: ENOXAPARIN SODIUM INJ 30 MG/0.3 ML DISP.SYRIN SUBCUT SCH (07:38)
[2016-08-03] MEDS: NORMAL SALINE 1000 ML 1,000 ML IV PRN ×2 (09:40→23:14)
[2016-08-03] MEDS: TIOTROPIUM BROMIDE DPI 5 CAP/KIT (18 MCG/CAP) IH SCH (09:45)
[2016-08-03] MEDS: FLUTICASONE NASAL SPRAY 50 MCG/SPRY 120 SPRAY/16 GM NASL SCH (09:46)
[2016-08-03] MEDS: MONTELUKAST SODIUM 10 MG TABLET PO SCH (09:47)
[2016-08-03] MEDS: ASPIRIN 81 MG TABLET, ENT COATED PO SCH (09:47)
[2016-08-03] MEDS: PREDNISONE 20 MG TABLET PO SCH (09:47)
[2016-08-03] MEDS: MULTIVITAMIN TABLET PO SCH (09:47)
[2016-08-03] MEDS: CALCIUM CARBONATE 500 MG TABLET PO SCH ×2 (09:48→17:07)
[2016-08-03] MEDS: DILTIAZEM HCL 180 MG CAPSULE.CR PO SCH ×2 (09:48→23:07)
[2016-08-03] MEDS: ACETAZOLAMIDE 250 MG TABLET PO SCH ×2 (09:48→23:07)
[2016-08-03] MEDS: POTASSIUM CHLORIDE 10 MEQ TABLET.SA PO SCH (09:48)
[2016-08-03] MEDS: CYCLOSPORINE 0.05% OPH EMULSIO 0.4 ML DROPERETTE OU SCH ×2 (10:17→23:14)
--- NOTE | 2016-08-03 19:28 | PDOC PROGRESS REPORT ---
Subjective Progress Note for:: 08/03/16 Subjective:: Patient reported no diarrhea so far today. Breathing with some improvement. No nausea, vomiting or abdominal pain. No chest pain. No reported fever or chills. Currently on oral Flagyl and Vancocin coverage. Physical Exam Vital Signs: Temp Pulse Resp BP Pulse Ox 97.5 F 139 H 24 H 127/57 H 100 08/03/16 15:42 08/03/16 15:42 08/03/16 15:42 08/03/16 15:42 08/03/16 15:42 Intake & Output 08/02/16 08/03/16 08/04/16 06:59 06:59 06:59 Intake Total 2687 2659 1166 Balance 2687 2659 1166 Weight 51.7 kg 53.4 kg Physical Exam: General appearance: PRESENT: cooperative, thin, other - moderate respiratory distress with purse lip and break in sentences. Head exam: PRESENT: atraumatic, normocephalic Eye exam: PRESENT: conjunctiva pink, EOMI, PERRLA. ABSENT: scleral icterus Respiratory exam: PRESENT: decreased breath sounds, rhonchi - minimal end expiratory phase Cardiovascular exam: PRESENT: tachycardia GI/Abdominal exam: PRESENT: normal bowel sounds, soft. 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 ABSENT: motor sensory deficit Psychiatric exam: PRESENT: anxious Skin exam: PRESENT: dry, intact, warm. ABSENT: cyanosis, rash Results Laboratory Results: 07/31/16 04:52 08/01/16 14:25 Blood culture is no growth x 4 days. Impressions: Chest X-Ray 07/30/16 10:29 IMPRESSION: Obstructive lung disease with enlarged central pulmonary arteries, stable Assessment & Plan - Diagnosis (1) Paroxysmal atrial fibrillation Is this a current diagnosis for this admission?: Yes (2) End stage chronic obstructive pulmonary disease Is this a current diagnosis for this admission?: Yes (3) Acute on chronic respiratory failure with hypoxemia Is this a current diagnosis for this admission?: Yes (4) Antibiotic-associated diarrhea Is this a current diagnosis for this admission?: Yes (5) Hypoxemia requiring supplemental oxygen Is this a current diagnosis for this admission?: Yes (6) Clostridium difficile colitis Is this a current diagnosis for this admission?: Yes (7) Hypokalemia due to loss of potassium Is this a current diagnosis for this admission?: Yes - Time Time Spent with patient: 25-34 minutes Medications reviewed and adjusted accordingly: Yes Anticipated discharge: Home with Homehealth Within: within 24 hours - Inpatient Certification Based on my medical assessment, after consideration of the patient's comorbidities, presenting symptoms, or acuity I expect that the services needed warrant INPATIENT care.: Yes I certify that my determination is in accordance with my understanding of Medicare's requirements for reasonable and necessary INPATIENT services [42 CFR 412.3e].: Yes Medical Necessity: Need Close Monitoring Due to Risk of Patient Decompensation, Need For Continuous Telemetry Monitoring, Risk of Complication if Not Cared For in Hospital Post Hospital Care: D/C Last Sorter Documentation - Plan Summary Plan Summary: See attending physician orders. Maintain on current antibiotic coverage.
[2016-08-03] MEDS: ALPRAZOLAM 0.25 MG TABLET PO PRN (23:08)
[2016-08-04] MEDS: LANSOPRAZOLE 30 MG TAB.RAP.DR PO SCH (06:21)
[2016-08-04] MEDS: METRONIDAZOLE 500 MG TABLET PO SCH ×4 (06:21→23:30)
[2016-08-04] MEDS: VANCOMYCIN HCL INJ 500 MG VIAL PO SCH ×4 (06:21→23:30)
[2016-08-04] MEDS: ENOXAPARIN SODIUM INJ 30 MG/0.3 ML DISP.SYRIN SUBCUT SCH (09:41)
[2016-08-04] MEDS: FLUTICASONE NASAL SPRAY 50 MCG/SPRY 120 SPRAY/16 GM NASL SCH (09:41)
[2016-08-04] MEDS: CYCLOSPORINE 0.05% OPH EMULSIO 0.4 ML DROPERETTE OU SCH ×2 (09:42→22:14)
[2016-08-04] MEDS: TIOTROPIUM BROMIDE DPI 5 CAP/KIT (18 MCG/CAP) IH SCH (09:42)
[2016-08-04] MEDS: DILTIAZEM HCL 180 MG CAPSULE.CR PO SCH ×2 (09:43→22:15)
[2016-08-04] MEDS: POTASSIUM CHLORIDE 10 MEQ TABLET.SA PO SCH (09:44)
[2016-08-04] MEDS: CALCIUM CARBONATE 500 MG TABLET PO SCH ×2 (09:45→17:50)
[2016-08-04] MEDS: PREDNISONE 20 MG TABLET PO SCH (09:46)
[2016-08-04] MEDS: MONTELUKAST SODIUM 10 MG TABLET PO SCH (09:47)
[2016-08-04] MEDS: ASPIRIN 81 MG TABLET, ENT COATED PO SCH (09:47)
[2016-08-04] MEDS: MULTIVITAMIN TABLET PO SCH (09:47)
[2016-08-04] MEDS: ACETAZOLAMIDE 250 MG TABLET PO SCH ×2 (09:47→22:15)
[2016-08-04] MEDS: NORMAL SALINE 1000 ML 1,000 ML IV PRN (12:14)
--- NOTE | 2016-08-04 13:40 | PDOC PROGRESS REPORT ---
Subjective Progress Note for:: 08/04/16 Subjective:: Patient reported worsening difficulty with breathing, particularly with exertion , just walking in her room. She remain on supplemental oxygen at 2-3L/minute. No chest pain. Her diarrhea is improving. No nausea, vomiting or abdominal pain. Remain on oral Flagyl and Vancocin coverage. No chest pain. No reported fever or chills. Physical Exam Vital Signs: Temp Pulse Resp BP Pulse Ox 97.7 F 82 19 121/54 L 95 08/04/16 12:38 08/04/16 12:38 08/04/16 12:38 08/04/16 12:38 08/04/16 12:38 Intake & Output 08/03/16 08/04/16 08/05/16 06:59 06:59 06:59 Intake Total 2659 2066 474 Balance 2659 2066 474 Weight 53.4 kg Physical Exam: General appearance: PRESENT: cooperative, thin, other - moderate respiratory distress with purse lip and break in sentences. Head exam: PRESENT: atraumatic, normocephalic Eye exam: PRESENT: conjunctiva pink, EOMI, PERRLA. ABSENT: scleral icterus Respiratory exam: PRESENT: decreased breath sounds bibasilar, rhonchi - moderate , end expiratory phase Cardiovascular exam: PRESENT: tachycardia GI/Abdominal exam: PRESENT: normal bowel sounds, soft. 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 ABSENT: motor sensory deficit Psychiatric exam: PRESENT: anxious Skin exam: PRESENT: dry, intact, warm. ABSENT: cyanosis, rash Results Laboratory Results: 07/31/16 04:52 08/01/16 14:25 Impressions: Chest X-Ray 07/30/16 10:29 IMPRESSION: Obstructive lung disease with enlarged central pulmonary arteries, stable Assessment & Plan - Diagnosis (1) Paroxysmal atrial fibrillation Is this a current diagnosis for this admission?: Yes (2) End stage chronic obstructive pulmonary disease Is this a current diagnosis for this admission?: YesPlan: See attending physician orders. I will start on Budesonide Neb 0.25mg/2 ml [id number] neb therapy. I will discontinue oral Prednisone usage. If patient demonstrate improvement she may be discharge home on same medication. (3) Acute on chronic respiratory failure with hypoxemia Is this a current diagnosis for this admission?: Yes (4) Antibiotic-associated diarrhea Is this a current diagnosis for this admission?: Yes (5) Hypoxemia requiring supplemental oxygen Is this a current diagnosis for this admission?: Yes (6) Clostridium difficile colitis Is this a current diagnosis for this admission?: Yes (7) Hypokalemia due to loss of potassium Is this a current diagnosis for this admission?: Yes - Time Time Spent with patient: 25-34 minutes Medications reviewed and adjusted accordingly: Yes Anticipated discharge: Home with Homehealth Within: Other - Inpatient Certification Medical Necessity: Need Close Monitoring Due to Risk of Patient Decompensation, Need For Continuous Telemetry Monitoring, Need for Nebulizer Therapy and Monitoring of Response, Risk of Complication if Not Cared For in Hospital Post Hospital Care: D/C Armhole Raiser Lockstitch Documentation - Plan Summary Plan Summary: Patient's discharge is becoming difficulty due to recurrent development of new issues with attempt to discharge home. I will atempt to use neb therapy for her management in view of poor coordination with inhale medication management
[2016-08-04] MEDS ORDERED: BUDESONIDE NEB 0.25 MG/2 ML AMPUL NEB PRN (14:00)
[2016-08-04] MEDS: BUDESONIDE NEB 0.25 MG/2 ML AMPUL NEB SCH (20:20)
[2016-08-05] MEDS: NORMAL SALINE 1000 ML 1,000 ML IV PRN (00:41)
[2016-08-05] MEDS: LANSOPRAZOLE 30 MG TAB.RAP.DR PO SCH (05:37)
[2016-08-05] MEDS: METRONIDAZOLE 500 MG TABLET PO SCH (05:37)
[2016-08-05] MEDS: VANCOMYCIN HCL INJ 500 MG VIAL PO SCH (05:37)
[2016-08-05] MEDS: LEVALBUTEROL HCL NEB 1.25 MG/3 ML AMPUL NEB PRN (08:28)
[2016-08-05] MEDS: BUDESONIDE NEB 0.25 MG/2 ML AMPUL NEB SCH (08:30)
--- NOTE | 2016-08-05 08:44 | PDOC DISCHARGE SUMMARY ---
General - Admit/Disc Date/PCP Admission Date/Primary Care Provider: 07/30/16 18:29 KEITH HAWKINS Discharge Date: 08/05/16 - Discharge Diagnosis (1) Paroxysmal atrial fibrillation Is this a current diagnosis for this admission?: Yes (2) End stage chronic obstructive pulmonary disease Is this a current diagnosis for this admission?: Yes (3) Acute on chronic respiratory failure with hypoxemia Is this a current diagnosis for this admission?: Yes (4) Antibiotic-associated diarrhea Is this a current diagnosis for this admission?: Yes (5) Hypoxemia requiring supplemental oxygen Is this a current diagnosis for this admission?: Yes (6) Clostridium difficile colitis Is this a current diagnosis for this admission?: Yes (7) Hypokalemia due to loss of potassium Is this a current diagnosis for this admission?: Yes - Additional Information Discharge Diet: Cardiac Discharge Activity: Activity As Tolerated, Energy Conservation, Slowly Increase Activity Home Medications: Acetazolamide [Diamox 250 mg Tab] 250 mg PO Q12 07/30/16 Alendronate Sodium [Fosamax 70 mg Tablet] 70 mg PO HODGSON@0700 PRN 07/30/16 Alprazolam [Xanax 0.25 mg Tablet] 0.25 mg PO Q12HP PRN 07/30/16 Aspirin [Ecotrin 81 mg EC Tablet] 81 mg PO DAILY 07/30/16 Calcium Carbonate [Calcium] 500 mg PO BID 07/30/16 Cyclosporine 0.05% Oph Emulsio [Restasis 0.05% Oph Emulsion Pf 0.4 ml] 1 drop OU Q12 07/30/16 Ergocalciferol (Vitamin D2) [Vitamin D2] 50,000 unit PO Q30D PRN 07/30/16 Melatonin [Melatin] 3 mg PO QHS 07/30/16 Mometasone Furoate [Nasonex] 2 spray NS DAILY 07/30/16 Montelukast Sodium [Singulair 10 mg Tablet] 10 mg PO DAILY 07/30/16 Multivitamin [Daily Multiple Vitamin] 1 tab PO DAILY 07/30/16 Potassium Chloride 20 meq PO DAILY 07/30/16 Budesonide [Pulmicort Neb 0.25 mg/2 ml Ampul] 0.25 mg NEB RTQ12 #60 ampul.neb Diltiazem HCl [Cardizem Cd 180 mg Capsule] 180 mg PO Q12 #60 capsule.cr Levalbuterol HCl [Xopenex Neb 1.25 mg/3 ml Ampul] 1.25 mg NEB RTQ4HP PRN #120 vial.neb 08/05/16 Metronidazole [Flagyl 500 mg Tablet] 500 mg PO Q6 #28 tablet 08/05/16 Tiotropium [place] [Spiriva Respimat] 2 inh IH DAILY #1 mist.inhal 08/05/16 Vancomycin HCl [Vancocin HCl] 125 mg PO Q6H #28 capsule 08/05/16 History of Present Illness History of Present Illness: ZANA ARREDONDO is a 86 year old female known to my practice who was recently discharged from this hospital for similar symptoms presentation. Patient reported increase difficulty with breathing and lack of endurance with need to frequently stop to rest. Patient remain on supplemental oxygen at home at 2-3 L/ minute via nasal canula. She reported always been cold but denied any definite fever of chills. No chest pain. No nausea or vomiting. She denied any significant abdominal pain but continue to experience episodes of diarrhea. Her initail evaluation was remarkable for chest X ray devoid of any acute pathology. Hospital Course Hospital Course: Patient's hospital stay was significant for gradual response to treatment and improvement in her breathing. She eventually got to her baseline but continue to demonstrate exertional dyspnea. Patient benefit from MDI device system was very minimal and she was changed to nebulizer and mist therapy at discharge time. Due to her tachycardia I did increase her Cardizem CD to 180 mg po bid with some improvement. Further, her stay was protracted due to recurrent C. difficile toxin colitis with need for oral Vancocin and IV Metronidazole therapy. The latter was changed to oral route upon discharge for both antibiotic administration for total of 7 days post discharge. Her diarrhea did improve prior to discharge. I did recommend home health agency services to include visiting nurse, physical therapy and certified personal chef. She will be living with daughter upon discharge this time. Her recent readmissions most likely are due to lack of social support and worsening of her end stage COPD as well as possible difficulty with her medication delivery from lack of coordination. Physical Exam Vital Signs: Temp Pulse Resp BP Pulse Ox 97.5 F 96 19 150/63 H 93 08/05/16 08:12 08/05/16 08:12 08/05/16 08:12 08/05/16 08:12 08/05/16 08:12 Intake & Output 08/04/16 08/05/16 08/06/16 06:59 06:59 06:59 Intake Total 2065 1836 Balance 2065 183 Weight 56.9 kg Physical Exam: General appearance: PRESENT: cooperative, thin, other - moderate respiratory distress with purse lip and break in sentences. Head exam: PRESENT: atraumatic, normocephalic Eye exam: PRESENT: conjunctiva pink, EOMI, PERRLA. ABSENT: scleral icterus Respiratory exam: PRESENT: decreased breath sounds bibasilar, rhonchi - moderate , end expiratory phase Cardiovascular exam: PRESENT: tachycardia GI/Abdominal exam: PRESENT: normal bowel sounds, soft. 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 ABSENT: motor sensory deficit Psychiatric exam: PRESENT: anxious Skin exam: PRESENT: dry, intact, warm. ABSENT: cyanosis, rash Results Laboratory Results: 07/31/16 04:52 08/01/16 14:25 Impressions: Chest X-Ray 07/30/16 10:29 IMPRESSION: Obstructive lung disease with enlarged central pulmonary arteries, stable Qualifiers [facility] BEING DISCHARGED WITH ANY OF THE FOLLOWING DIAGNOSIS?: No Plan Discharge Plan: See attending physician orders. Patient will follow up in the office s instructed upon discharge. Time Spent: Greater than 30 Minutes - More than 50 % of my bedside consultation was spent over medication instructions to the patient and post hospital care plan.
[2016-08-05] MEDS: ENOXAPARIN SODIUM INJ 30 MG/0.3 ML DISP.SYRIN SUBCUT SCH (10:29)
[2016-08-05] MEDS: ASPIRIN 81 MG TABLET, ENT COATED PO SCH (10:38)
[2016-08-05] MEDS: ACETAZOLAMIDE 250 MG TABLET PO SCH (10:38)
[2016-08-05] MEDS: MONTELUKAST SODIUM 10 MG TABLET PO SCH (10:38)
[2016-08-05] MEDS: MULTIVITAMIN TABLET PO SCH (10:38)
[2016-08-05] MEDS: DILTIAZEM HCL 180 MG CAPSULE.CR PO SCH (10:39)
[2016-08-05] MEDS: CALCIUM CARBONATE 500 MG TABLET PO SCH (10:39)
[2016-08-05] MEDS: CYCLOSPORINE 0.05% OPH EMULSIO 0.4 ML DROPERETTE OU SCH (10:40)
[2016-08-05] MEDS: FLUTICASONE NASAL SPRAY 50 MCG/SPRY 120 SPRAY/16 GM NASL SCH (10:40)
[2016-08-05] MEDS: POTASSIUM CHLORIDE 10 MEQ TABLET.SA PO SCH (10:40)
[2016-08-05 11:03] VITALS: BP 141/61
[2016-08-28] MEDS ORDERED: ERGOCALCIFEROL (VITAMIN D2) 50000 UNIT (1.25 MG) CAPSULE PO SCH (10:00)
== END 2016-08-05 11:15 | disposition home health service (06) | DRG 189 ==
LOC: ER 07:59 → UNDOADMIN 13:57 → EH 13:57 → 3N 16:21 → 3W 08-02 19:29
PROVIDERS: ADMIT Internal Medicine Geriatric Medicine; ATTEND Internal Medicine Geriatric Medicine
PROC: 5A09357 Assistance with Respiratory Ventilation, Less than 24 Consecutive Hours, Continuous Positive Airway Pressure (ICD-10-PCS; principal; 2016-07-30)
PROC: 3E0F73Z Introduction of Anti-inflammatory into Respiratory Tract, Via Natural or Artificial Opening (ICD-10-PCS; 2016-08-04)
DX: J96.21 Acute and chronic respiratory failure with hypoxia (principal); J44.1 Chronic obstructive pulmonary disease with (acute) exacerbation; A04.7 Enterocolitis due to Clostridium difficile; I48.0 Paroxysmal atrial fibrillation; E87.6 Hypokalemia; I10 Essential (primary) hypertension; M19.90 Unspecified osteoarthritis, unspecified site; D64.9 Anemia, unspecified; F41.9 Anxiety disorder, unspecified; Z99.81 Dependence on supplemental oxygen; Z79.82 Long term (current) use of aspirin; Z79.899 Other long term (current) drug therapy; Z90.10 Acquired absence of unspecified breast and nipple; Z87.891 Personal history of nicotine dependence; Z88.0 Allergy status to penicillin; Z88.2 Allergy status to sulfonamides; Z88.7 Allergy status to serum and vaccine
CPT/HCPCS: 36415; 71010; 80048; 80053; 82550; 82553; 82803; 83735; 84484; 85025; 85610; 85730; 87040; 87493; 89055; 93005; 93010; 94640; 96374; 99285; J1650; J2930; J3370; J3480; J3490; J7030; J7512; J7620; J7626